=== PATIENT | female | born 1955 | race Caucasian/White ===

== ENCOUNTER 2017-01-22 18:10 | Inpatient (IN) | payer OTHER ==
[2017-01-22] MEDS ORDERED: Albuterol/Ipratropium NEB.SOL* Albuterol 2.5 MG/Ipratropium 0.5 MG 3 ML INH ONE (19:20)
[2017-01-22] MEDS ORDERED: methylPREDNISolone 125 MG* 2 ML VIAL IV ONE (19:20)
--- NOTE | 2017-01-22 19:50 | RAD ---
INDICATION: Short of breath COMPARISON: Chest x-ray July 03, 2015 TECHNIQUE: An AP portable view obtained at 1941 hours is submitted. FINDINGS: Bones/Soft Tissues: There are no acute bony findings. Cardiomediastinal: The cardiac silhouette is enlarged. Central pontine vessels and interstitium are prominent consistent with moderate interstitial congestion. Lungs: There are no focal infiltrates. Pleura: There are no pleural effusions. Other: None IMPRESSION: MODERATE INTERSTITIAL CONGESTION.
[2017-01-22 20:10] LABS: Hematocrit 33 % (35-47); Hemoglobin 9.7 g/dl (12.0-16.0); Mean Corpuscular HGB Conc 29 g/dl (31-36); Mean Corpuscular Hemoglobin 20 pg (27-31); Mean Corpuscular Volume 67 fL (80-97); Mean Platelet Volume 9 um3 (7.4-10.4); Red Blood Count 4.92 10^6/ul (4.0-5.4); Red Cell Distribution Width 21 % (10.5-15); White Blood Count 12.8 10^3/ul (3.5-10.8)
[2017-01-22 20:20] LABS: Add Diff/Slide Review? Slide Review Added; Comments Flag Yes
[2017-01-22 20:25] LABS: ALT 19 U/L (7-52); AST 15 U/L (13-39); Albumin 3.5 g/dL (3.2-5.2); Alkaline Phosphatase 103 U/L (34-104); Anion Gap 5 mmol/L (2-11); BUN/Creatinine Ratio 28.1 (8-20); Blood Urea Nitrogen 18 mg/dL (6-24); CO2 Carbon Dioxide 35 mmol/L (22-32); Calcium 9.2 mg/dL (8.6-10.3); Chloride 100 mmol/L (101-111); EGFR African American 120.9 (>60); Globulin 3.3 g/dL (2-4); Glucose 65 mg/dL (70-100); Potassium 3.7 mmol/L (3.5-5.0); Sodium 140 mmol/L (133-145); Total Protein 6.8 g/dL (6.4-8.9)
[2017-01-22 20:26] LABS: Troponin I 0.02 ng/mL (<0.04)
[2017-01-22 20:37] LABS: Microcytosis 2+
[2017-01-22 20:38] LABS: Basophilic Stippling 1+; Hypochromasia 2+; Polychromasia 2+; Tear Drop Cells 1+
[2017-01-22 20:39] LABS: Add Path Review? YES; Stomatocytes 3+
[2017-01-22 23:08] LABS: Urine Bilirubin Negative (Negative); Urine Glucose Negative (Negative); Urine Nitrite Negative (Negative)
[2017-01-22] MEDS ORDERED: Iodixanol* (CONTRAST) 320 MG/ML 100 ML SDV IV ONE (23:22)
[2017-01-23] MEDS ORDERED: Piperacillin/Tazobac ADVAN(*) 3.375 GM in NS 0.9% 100 ML* 100 ML IVPB ONE (01:16)
[2017-01-23 01:43] LABS: C Reactive Protein 8.78 mg/L (< 5.00)
--- NOTE | 2017-01-23 01:55 | ED ---
Miranda Valdes Jason, scribed for Sherman Broderick on 01/22/17 at 1924 . Complex/Multi-Sys Presentation - HPI Summary HPI Summary: This patient is a 61 year old F presenting to [facility] with a chief complaint of productive cough with nasal congestion since 1 week ago. The patient sates that she was on abc for 7 days, twice a day and finished 3 days ago, but continues to experience sx. The patient rates the pain _/10 in severity. Symptoms aggravated by nothing. Symptoms alleviated by nothing. Patient denies fever and chills. - History Of Current Complaint Chief Complaint: EDShortnessOfBreath Time Seen by Provider: 01/22/17 19:13 Hx Obtained From: Patient Onset/Duration: Gradual Onset, Lasting Weeks - Since 1 week ago, Still Present Timing: Constant Aggravating Factor(s): nothing Alleviating Factor(s): nothing Associated Signs And Symptoms: Positive: Other - productive cough with nasal congestion.Patient denies fever and chills. - Allergies/Home Medications Allergies/Adverse Reactions: Allergies Allergy/AdvReac Type Severity Reaction Status Date / Time No Known Allergies Allergy Verified 01/22/17 18:30 Home Medications: Home Medications Beclomethasone Dipropionate [Qvar] 80 mcg INH DAILY 01/23/17 [History Confirmed 01/23/17] Lantus Solostar 65 units SUBCUT QAM 01/23/17 [History Confirmed 01/23/17] Lantus Solostar 5x3 ML PENS 60 units SUBCUT QPM 01/23/17 [History Confirmed ] Nystatin CREAM* [Nystatin Cream*] 1 applic TOPICAL BID 01/23/17 [History Confirmed 01/23/17] PMH/Surg Hx/FS Hx/Imm Hx Previously Healthy: No Endocrine/Hematology History: Reports: Hx Diabetes Denies: Hx Systemic Lupus Erythematosus, Hx Thyroid Disease Cardiovascular History: Reports: Hx Hypercholesterolemia, Hx Hypertension, Other Cardiovascular Problems/Disorders - afib Denies: Hx Congestive Heart Failure Respiratory History: Reports: Hx Chronic Obstructive Pulmonary Disease (COPD), Hx Pneumonia, Hx Sleep Apnea, Other Respiratory Problems/Disorders - RESPIRATORY FAILURE (per admission hx) GI History: Reports: Hx Gall Bladder Disease - removed, Other GI Disorders - umbilical hernia, constipation History: Reports: Other Problems/Disorders - per admission Hx - UTIs Denies: Hx Dialysis, Hx Renal Disease Musculoskeletal History: Reports: Hx Arthritis, Hx Back Problems - pain, Other Musculoskeletal History - sciatica, back pain Denies: Hx Rheumatoid Arthritis Sensory History: Reports: Hx Contacts or Glasses Denies: Hx Cataracts Opthamlomology History: Reports: Hx Contacts or Glasses Denies: Hx Cataracts Neurological History: Reports: Other Neuro Impairments/Disorders - neuropathy Psychiatric History: Reports: Hx Anxiety - active - Cancer History Cancer Type, Location and Year: Uterine CA Hx Chemotherapy: No Hx Radiation Therapy: Yes - Surgical History Surgery Procedure, Year, and Place: humerus repair . hysterectomy 2009 d/ t uterine cx. cholecystectomy when in her 40s. c/s. tonsilectomy Hx Anesthesia Reactions: No Infectious Disease History: No Infectious Disease History: Denies: Hx of Known/Suspected MRSA, History Other Infectious Disease, Traveled Outside the [place] in Last 30 Days - Family History Known Family History: Positive: Cardiac Disease - coronary artery disease Negative: Blood Disorder Family History: R & n/C - Social History Alcohol Use: Rare Hx Substance Use: No Substance Use Type: Reports: None Substance Use Comment - Amount & Last Used: "in cookie a few days ago" Hx Tobacco Use: Yes - 50 pack year history Smoking Status (MU): Former Smoker Type: Cigarettes Amount Used/How Often: 1 ppd + Length of Time of Smoking/Using Tobacco: 40 years Have You Smoked in the Last Year: No Review of Systems Negative: Fever, Chills Positive: Other - Nasal Congestion Positive: Cough - productive All Other Systems Reviewed And Are Negative: Yes Physical Exam - Summary Physical Exam Summary: Appearance: Well appearing, no pain distress Skin: warm, dry, reflects adequate perfusion Head/face: normal Eyes: EOMI, KEITH ENT: normal Neck: supple, non-tender Respiratory: . Bilateral wheezing. Cardiovascular: RRR, pulses symmetrical Abdomen: non-tender, soft Bowel: present Musculoskeletal: normal, strength/ROM intact Neuro: normal, sensory motor intact, A&Ox3 Triage Information Reviewed: Yes Vital Signs On Initial Exam: Initial Vitals Temp Pulse Resp BP Pulse Ox 97.6 F 88 19 113/51 88 01/22/17 18:23 01/22/17 18:23 01/22/17 18:23 01/22/17 18:23 01/22/17 18:23 Vital Signs Reviewed: Yes Diagnostics - Vital Signs Vital Signs Temp Pulse Resp BP Pulse Ox 01/22/17 18:23 97.6 F 88 19 113/51 88 - Laboratory Lab Results: Lab Results 01/22/17 01/22/17 01/22/17 Range/Units 19:50 19:50 19:50 WBC 12.8 H (3.5-10.8) 10^3/ul RBC 4.92 (4.0-5.4) 10^6/ul Hgb 9.7 L (12.0-16.0) g/dl Hct 33 L (35-47) % MCV 67 L (80-97) fL MCH 20 L (27-31) pg MCHC 29 L (31-36) g/dl RDW 21 H (10.5-15) % Plt Count 346 (150-450) 10^3/ul MPV 9 (7.4-10.4) um3 Neut % (Auto) 69.8 (38-83) % Lymph % (Auto) 20.1 L (25-47) % Clare % (Auto) 6.1 (1-9) % Eos % (Auto) 3.1 (0-6) % Baso % (Auto) 0.9 (0-2) % Absolute Neuts (auto) 8.9 H (1.5-7.7) 10^3/ul Absolute Lymphs (auto) 2.6 (1.0-4.8) 10^3/ul Absolute Monos (auto) 0.8 (0-0.8) 10^3/ul Absolute Eos (auto) 0.4 (0-0.6) 10^3/ul Absolute Basos (auto) 0.1 (0-0.2) 10^3/ul Absolute Nucleated RBC 0 10^3/ul Nucleated RBC % 0 Normal RBC Morphology Not Reportable Polychromasia 2+ Hypochromasia 2+ Basophilic Stippling 1+ Microcytosis 2+ Tear Drop Cells 1+ Stomatocytes 3+ Elliptocytes 1+ Hem Pathologist Commnt Pending INR (Anticoag Therapy) 0.98 (0.77-1.02) APTT 26.2 (26.0-36.3) seconds D-Dimer, Quantitative 231 H (Less Than 230) ng/mL Sodium (133-145) mmol/L Potassium (3.5-5.0) mmol/L Chloride (101-111) mmol/L Carbon Dioxide (22-32) mmol/L Anion Gap (2-11) mmol/L BUN (6-24) mg/dL Creatinine (0.51-0.95) mg/dL Est GFR ( Amer) (>60) Est GFR (Non-Af Amer) (>60) BUN/Creatinine Ratio (8-20) Glucose (70-100) mg/dL Lactic Acid (0.5-2.0) mmol/L Calcium (8.6-10.3) mg/dL Total Bilirubin (0.2-1.0) mg/dL AST (13-39) U/L ALT (7-52) U/L Alkaline Phosphatase (34-104) U/L Troponin I (<0.04) ng/mL C-Reactive Protein (< 5.00) mg/L B-Natriuretic Peptide 30 ( - 100) pg/mL Total Protein (6.4-8.9) g/dL Albumin (3.2-5.2) g/dL Globulin (2-4) g/dL Albumin/Globulin Ratio (1-3) Urine Color Urine Appearance Urine pH (5-9) Ur Specific [place] (1.010-1.030) Urine Protein (Negative) Urine Ketones (Negative) Urine Blood (Negative) Urine Nitrate (Negative) Urine Bilirubin (Negative) Urine Urobilinogen (Negative) Ur Leukocyte Esterase (Negative) Urine Glucose (Negative) 01/22/17 01/22/17 01/22/17 Range/Units 19:50 19:50 22:51 WBC (3.5-10.8) 10^3/ul RBC (4.0-5.4) 10^6/ul Hgb (12.0-16.0) g/dl Hct (35-47) % MCV (80-97) fL MCH (27-31) pg MCHC (31-36) g/dl RDW (10.5-15) % Plt Count (150-450) 10^3/ul MPV (7.4-10.4) um3 Neut % (Auto) (38-83) % Lymph % (Auto) (25-47) % Clare % (Auto) (1-9) % Eos % (Auto) (0-6) % Baso % (Auto) (0-2) % Absolute Neuts (auto) (1.5-7.7) 10^3/ul Absolute Lymphs (auto) (1.0-4.8) 10^3/ul Absolute Monos (auto) (0-0.8) 10^3/ul Absolute Eos (auto) (0-0.6) 10^3/ul Absolute Basos (auto) (0-0.2) 10^3/ul Absolute Nucleated RBC 10^3/ul Nucleated RBC % Normal RBC Morphology Polychromasia Hypochromasia Basophilic Stippling Microcytosis Tear Drop Cells Stomatocytes Elliptocytes Hem Pathologist Commnt INR (Anticoag Therapy) (0.77-1.02) APTT (26.0-36.3) seconds D-Dimer, Quantitative (Less Than 230) ng/mL Sodium 140 (133-145) mmol/L Potassium 3.7 (3.5-5.0) mmol/L Chloride 100 L (101-111) mmol/L Carbon Dioxide 35 H (22-32) mmol/L Anion Gap 5 (2-11) mmol/L BUN 18 (6-24) mg/dL Creatinine 0.64 (0.51-0.95) mg/dL Est GFR ( Amer) 120.9 (>60) Est GFR (Non-Af Amer) 94.0 (>60) BUN/Creatinine Ratio 28.1 H (8-20) Glucose 65 L (70-100) mg/dL Lactic Acid 1.4 (0.5-2.0) mmol/L Calcium 9.2 (8.6-10.3) mg/dL Total Bilirubin 0.30 (0.2-1.0) mg/dL AST 15 (13-39) U/L ALT 19 (7-52) U/L Alkaline Phosphatase 103 (34-104) U/L Troponin I 0.02 (<0.04) ng/mL C-Reactive Protein 8.78 H (< 5.00) mg/L B-Natriuretic Peptide ( - 100) pg/mL Total Protein 6.8 (6.4-8.9) g/dL Albumin 3.5 (3.2-5.2) g/dL Globulin 3.3 (2-4) g/dL Albumin/Globulin Ratio 1.1 (1-3) Urine Color Yellow Urine Appearance Clear Urine pH 5.0 (5-9) Ur Specific [place] 1.023 (1.010-1.030) Urine Protein Negative (Negative) Urine Ketones Negative (Negative) Urine Blood Negative (Negative) Urine Nitrate Negative (Negative) Urine Bilirubin Negative (Negative) Urine Urobilinogen Negative (Negative) Ur Leukocyte Esterase Negative (Negative) Urine Glucose Negative (Negative) Result Diagrams: 01/22/17 19:50 01/22/17 19:50 Lab Statement: Any lab studies that have been ordered have been reviewed, and results considered in the medical decision making process. - Radiology CXR Radiology Interpretation Completed By: Radiologist - CXR reveals, per radiologist, MODERATE INTERSTITIAL CONGESTION. ED physician has reviewed this radiology report. - CT CTA CHEST CT Interpretation Completed By: Radiologist - Nodules up to 5mm right upper lobe , advise follow up. No Pulmonary Embolism, No aortic dissection or aneurysm. No focal lung consolidation or pleural effusions. Nonspecific ground glass densities bilateral lungs. Mediastinal lymphadenopathy, indeterminate. Prominent collateral vessels left chest wall/left breast.ED physician has reviewed this radiology report. - EKG 1933 Cardiac Rate: NL EKG Rhythm: Sinus Rhythm - [address] Segment: Normal Ectopy: None EKG Interpretation: no acute changes Complex Multi-Symp Course/Dx Course Of Treatment: This patient is a 61 year old F presenting to [facility] with a chief complaint of productive cough with nasal congestion since 1 week ago. Bloodwork/UA obtained. In the ED course the patient was given IV fluids. An EKG reveals a Sinus Rhythm at 82 bpm and no acute changes. CXR reveals, per radiologist, MODERATE INTERSTITIAL CONGESTION. Nodules up to 5mm right upper lobe, advise follow up. CTA CHEST reveals No Pulmonary Embolism, No aortic dissection or aneurysm. No focal lung consolidation or pleural effusions. Nonspecific ground glass densities bilateral lungs. Mediastinal lymphadenopathy , indeterminate. Prominent collateral vessels left chest wall/left breast. Patient will be admitted. The patient is agreeable with this plan. Diagnosis of PNA, exacerbation of COPD, hypoxia, and mild respiratory failure. - Diagnoses Differential Diagnoses/HQI/PQRI: Sepsis, Other - pneumonia, exc copd Provider Diagnoses: COPD with acute exacerbation, Pneumonia, Hypoxia, Respiratory failure with hypoxia - Critical Care Time Critical Care Time: 30-74 min Discharge - Discharge Plan Condition: Stable Disposition: ADMITTED TO [facility] Referrals: Yong Crocker MD [Primary Care Provider] - 3 Days Additional Instructions: Follow up with PCP in 3 days. RETURN TO THE EMERGENCY DEPARTMENT FOR CHANGING OR WORSENING SYMPTOMS. The documentation as recorded by the Miranda wilson Jason accurately reflects the service I personally performed and the decisions made by , Sherman Broderick.
[2017-01-23] MEDS ORDERED: Acetaminophen TAB* 325 MG PO PRN (02:18)
[2017-01-23] MEDS ORDERED: Dextrose 50% Syringe 50 ML* 25 GM/50 ML SYRINGE IV PUSH PRN (02:23)
[2017-01-23 03:43] LABS: Total Iron Binding Capacity 482 mcg/dL (250-450); Transferrin 344 mg/dL (203-362)
[2017-01-23 03:46] LABS: Iron < 15 ug/dL (50-212)
[2017-01-23] MEDS: Azithromycin IV(*) 500 MG in NS 0.9% 250 ML* 250 ML IVPB SCH (04:03)
[2017-01-23 04:04] LABS: Ferritin < 10.0 ng/mL (11-307)
[2017-01-23] MEDS: methylPREDNISolone SOD 40 MG* 1 ML VIAL IV SCH ×3 (04:12→20:58)
[2017-01-23] MEDS: Heparin VIAL(*) 5000 UNITS/ML VIAL (FIVE THOUSAND) SUBCUT SCH ×3 (05:28→21:00)
[2017-01-23] MEDS ORDERED: Albuterol 2.5 MG/3 ML NEB.SOL* (0.083%) INH SCH (07:00)
--- NOTE | 2017-01-23 07:39 | HP ---
HISTORY AND PHYSICAL: ADDENDUM: Please note that the patient also has microcytic anemia. She denies any bright red blood per rectum or melena. Her stool Hemoccult is going to be checked. The patient's iron studies are also going to be obtained. [id number] #: [id number] MTDD
--- NOTE | 2017-01-23 07:39 | HP ---
ADDENDUM NOW INCLUDED ON THIS REPORT CC: Dr. Crocker * HISTORY AND PHYSICAL: DATE OF ADMISSION: 01/23/17 PRIMARY CARE PROVIDER: Dr. Crocker. CHIEF COMPLAINT: Shortness of breath. HISTORY OF PRESENT ILLNESS: Elyssa Ty is a 61-year-old female with a history of COPD, who stated that she was originally diagnosed with exacerbation on 01/12, when she went to [facility]. She was prescribed a steroid inhaler. Later she went to see her primary care provider, who prescribed her a prednisone course of 5 days and an antibiotic for 7 days. She finished the antibiotic approximately 3 to 4 days ago and she still complains of coughing up phlegm and shortness of breath. The patient, when ambulating in the emergency room she dropped her oxygen saturation to 77%. She is going to be admitted with overnight observation with diagnosis of COPD exacerbation and hypoxemic respiratory failure. PAST MEDICAL HISTORY: 1. History of COPD, not oxygen dependent. 2. History of obstructive sleep apnea, the patient cannot tolerate the CPAP. 3. Diabetes type 2. 4. A bout of atrial fibrillation in the past, not anticoagulated. 5. Neuropathy. 6. Hypertension. 7. Urinary incontinence. 8. Obesity. 9. Chronic lower back pain. 10. History of left humerus fracture. 11. Status post ORIF of the right ankle in April 2016. 12. History of bilateral oophorectomy. 13. History of hysterectomy. 14. History of tonsillectomy. 15. History of . 16. Laparoscopic cholecystectomy. MEDICATIONS: Medications at home include: 1. Nystatin cream to abdominal folds b.i.d. 2. Insulin Humalog sliding scale. 3. Furosemide 20 mg daily. 4. Aspirin 81 mg daily. 5. Probiotic one tablet daily. 6. QVAR 80 mcg inhalation daily. 7. Calcium and vitamin D 1 tablet daily. 8. Lipitor 80 mg daily. 9. Albuterol inhaler 2 puffs every 4 hours p.r.n. 10. Gabapentin 600 mg b.i.d. 11. Fish oil 1 tablet daily. 12. Colace 100 mg b.i.d. 13. Lantus 60 units daily in p.m. and 65 units in a.m. 14. Multivitamin 1 tablet daily. 15. Metformin 1000 mg b.i.d. 16. Ramipril 10 mg b.i.d. ALLERGIES: No known drug allergies. FAMILY HISTORY: The patient's mother has a history of diabetes. SOCIAL HISTORY: The patient has a history of smoking for approximately 30 years , 2-1/2 packs per day. She lives with her . She ambulates without the use of support, although she has a cane since her surgery in April 2016 that she had been using occasionally. Her daughter, Ann, is her surrogate and Ann's phone number is [phone]. REVIEW OF SYSTEMS: Please see history of present illness. In addition to the above mentioned, the patient stated that she had gained approximately 20 pounds of weight in approximately 6 months. She always has dyspnea on exertion and she had not tolerated oxygen in the past because she "does not like it." For obstructive sleep apnea, she does not tolerate oxygen or CPAP. All the remaining 14 systems were reviewed with the patient and apart from the abovementioned in history of present illness were negative. PHYSICAL EXAMINATION GENERAL: The patient is a pleasant 61-year-old female with a BMI of 48. The patient is in no acute distress. Alert, awake, and oriented x3. VITAL SIGNS: Blood pressure of 127/73, heart rate of 86 and regular, respiratory rate 23, oxygen saturation 96% on 3 L of oxygen nasal cannula, temperature of 97.6. HEENT: Head: Atraumatic, normocephalic. Eyes: Pupils are equal, reactive to light and accommodation. Oropharynx clear. Mucosa moist. NECK: Supple. No JVD, no bruits bilaterally. RESPIRATORY: Crackles on bilateral lung auscultation, more so on the right lung and less at the left lung base. There were also scattered wheezes bilaterally. CARDIOVASCULAR: Regular rate and rhythm. No murmurs. ABDOMEN: Protuberant, soft, and nontender. Bowel sounds are present in all 4 quadrants. EXTREMITIES: With hardened skin with stigmata of venous stasis. The patient's right ankle is status post surgery over 6 months ago. She has some chronic appearing erythema in the area with a healing, scabbed lesion with no evidence of cellulitis. The patient has +1 pitting pedal edema bilaterally. Pulses are +2 bilaterally. There is no clubbing or cyanosis. NEURO EVALUATION: Speech clear. Cranial nerves II through XII are grossly intact. Motor strength is 5/5 bilaterally. SKIN: On evaluation of the skin, apart from the venous stasis in bilateral lower extremities and scabbed healing lesion in the right ankle with no evidence of cellulitis, no other abnormalities were noted. PSYCHIATRIC EVALUATION: Oriented x3 with no evidence of anxiety or depression. DIAGNOSTIC STUDIES/LAB DATA: Showed white blood cell count of 12.8, hemoglobin of 9.7, hematocrit of 33, MCV of 67, and platelets of 346. INR was 0.98, PTT of 26, D-dimer of 230. Sodium was 140, potassium 3.7, chloride 100, carbon dioxide 35, BUN 18, creatinine 0.64. Liver function tests were unremarkable. Glucose was incidentally noted to be 65. C-reactive protein of 8. Brain natriuretic peptide was 30. Calcitonin 0.1, troponin of 0.01. Urinalysis unremarkable. CT angiogram of the chest obtained in the emergency department shows nodules up to 5 mm in the right upper lobe. Advised followup. No pulmonary embolus. No aortic dissection or aneurysm. No focal lung consolidation or pleural effusions. No specific ground opacities in bilateral lungs. Mediastinal lymphadenopathy indeterminate. Prominent collateral vessels of the left chest and left breast." The patient's EKG showed normal sinus rhythm with no ST changes. ASSESSMENT AND PLAN: 1. Subacute respiratory failure lasting approximately 2 weeks in the patient with a history of chronic obstructive pulmonary disease now with exacerbation. The patient has some nonspecific ground opacities on her CTA and I suspect that may be a due to a viral inflection. Her procalcitonin level is low and CRP also does not indicate an acute bacterial infection. Nevertheless, the patient has lymphadenopathy and 5 mm right upper lung nodule about which she was informed and the need to have a repeat CT in approximately 3 months. At this point, the patient is going to be treated with antibiotic with azithromycin mostly due to anti- inflammatory properties as described. The patient also is going to be placed on Solu-Medrol for chronic obstructive pulmonary disease exacerbation as well as scheduled nebulizer treatments. 2. Her diabetes, the patient is going to be treated with insulin glargine twice a day as well as insulin lispro sliding scale. 3. For obstructive sleep apnea, patient is not tolerating CPAP. Oxygen is going to be provided. 3. For hypertension, her IWONA inhibitor is going to be continued. 4. For bilateral leg edema, Lasix is going to be continued at unchanged dose. 5. For DVT prophylaxis, the patient is going to be placed on heparin subcutaneously. 6. The patient's code status is full. TIME SPENT: Approximately 65 minutes was spent on the admission of this patient , more than half that time was spent [id number] with the patient doing the interview and physical exam. ADDENDUM: Please note that the patient also has microcytic anemia. She denies any bright red blood per rectum or melena. Her stool Hemoccult is going to be checked. The patient's iron studies are also going to be obtained. [id number] #: [id number] #: [id number] MARIE
[2017-01-23] MEDS ORDERED: Albuterol HFA INHALER* 8 gm MDI INH PRN (08:08)
--- NOTE | 2017-01-23 08:29 | RAD ---
HISTORY: Cough, infection, history of uterine cancer COMPARISONS: July 03, 2015, June 05, 2013 TECHNIQUE: Multiple contiguous axial CT scans of the chest were obtained after the administration of nonionic intravenous contrast, timed to the pulmonary arterial phase of contrast enhancement.. Coronal and sagittal multiplanar reformations are also submitted for review. FINDINGS: Evaluation limited by patient breathing motion artifact and by suboptimal contrast opacification. The attenuation is within the limits for the detection of pulmonary embolism. NECK AND THYROID: The lower neck and thyroid are unremarkable. CHEST WALL: There is no lower cervical, axillary, or supraclavicular lymphadenopathy by size criteria. HEART AND PERICARDIUM: The heart is unremarkable. AORTA AND PULMONARY VASCULATURE: The aorta and pulmonary vasculature are normal. MEDIASTINUM: There are enlarged prevascular and right paratracheal lymph nodes. These are stable. BUSHRA: There is mildly enlarged right hilar lymph node. This is slightly progressed from the July 03, 2015 examination.. AIRWAY AND ESOPHAGUS: The airway is unremarkable, without endobronchial filling defect. The esophagus is grossly normal. LUNG PARENCHYMA: There is mild ground glass opacification lungs bilaterally. There are multiple pulmonary parenchymal nodules measuring up to 0.5 cm in size. A claims representative lesion can be seen on axial image 24 within the superior segment of the right lower lobe PLEURA: No pleural abnormalities are noted. UPPER ABDOMEN: Mild degenerative changes are noted. There is reflux of contrast with the left chest wall veins without appreciable occlusion of the superior vena cava or left brachiocephalic vein. BONES AND SOFT TISSUES: No bone or soft tissue abnormalities are noted. OTHER: None. IMPRESSION: 1. MEDIASTINAL AND RIGHT HILAR LYMPHADENOPATHY. THERE IS BEEN MILD PROGRESSION WHEN COMPARED TO JULY 03, 2015. 2. MULTIPLE PULMONARY PARENCHYMAL NODULES MEASURING UP TO 0.5 CM IN SIZE. GIVEN THE HISTORY OF MALIGNANCY, METASTATIC DISEASE IS WITHIN THE DIFFERENTIAL. RECOMMEND THREE-MONTH FOLLOW-UP CT OF THE CHEST TO EVALUATE FOR STABILITY OR PROGRESSION. 3. MILD PATCHY AIRSPACE DISEASE OF THE LUNGS BILATERALLY.
[2017-01-23] MEDS: Furosemide TAB* 20 MG PO SCH (08:38)
[2017-01-23] MEDS: Atorvastatin* 80 MG TAB PO SCH (08:38)
[2017-01-23] MEDS: Docusate CAP* 100 MG PO SCH ×2 (08:38→20:58)
[2017-01-23] MEDS: Aspirin Low Dose CHEW TAB* 81 MG PO SCH ×2 (08:38→21:00)
[2017-01-23] MEDS: Gabapentin CAP(*) 300 MG PO SCH ×2 (08:38→20:58)
[2017-01-23] MEDS: Ramipril CAP* 5 MG PO SCH (08:38)
[2017-01-23] MEDS: Insulin LISPRO* 1 UNITS UNIT SUBCUT SCH ×4 (08:39→21:00)
[2017-01-23] MEDS: Insulin GLARGINE(*) 1 UNITS UNIT SUBCUT SCH ×2 (08:39→21:01)
[2017-01-23] MEDS: Nystatin CREAM* 15 GM TUBE TOPICAL SCH ×2 (09:00→21:04)
[2017-01-23] MEDS ORDERED: Insulin GLARGINE(*) 1 UNITS UNIT SUBCUT SCH (09:00)
--- NOTE | 2017-01-23 13:55 | PN ---
Subjective Date of Service: 01/23/17 Interval History: Patient seen and examined. Appears comfortable, denies acute SOB, remains on O2 via NC, no chest pains, no dizziness or headache. Cough is productive of yellow sputum, difficult to expectorate. Denies fever or chills. No further complaints. Objective Active Medications: Acetaminophen (Tylenol Tab*) 650 mg PO Q4H PRN PRN Reason: FEVER/PAIN Albuterol (Ventolin Hfa Inhaler*) 2 puff INH Q4H PRN PRN Reason: SOB/WHEEZING Aspirin (Aspirin Low Dose Tab*) 81 mg PO BID [facility] Last Admin: 01/23/17 08:38 Dose: 81 mg Atorvastatin Calcium (Lipitor*) 80 mg PO DAILY [facility] Last Admin: 01/23/17 08:38 Dose: 80 mg Dextrose (D50w Syringe 50 Ml*) 12.5 gm IV PUSH .FOR FS < 60 - SS PRN PRN Reason: FS < 60 Docusate Sodium (Colace Cap*) 100 mg PO BID [facility] Last Admin: 01/23/17 08:38 Dose: 100 mg Furosemide (Lasix Tab*) 20 mg PO DAILY [facility] Last Admin: 01/23/17 08:38 Dose: 20 mg Gabapentin (Neurontin Cap(*)) 600 mg PO BID [facility] Last Admin: 01/23/17 08:38 Dose: 600 mg Heparin Sodium (Porcine) (Heparin Vial(*)) 5,000 units SUBCUT Q8HR [facility] Last Admin: 01/23/17 12:49 Dose: 5,000 units Azithromycin 500 mg/ Sodium (Chloride) 250 mls @ 250 mls/hr IVPB Q24H [facility] Last Admin: 01/23/17 04:03 Dose: 250 mls/hr Insulin Glargine (Lantus(*)) 60 units SUBCUT Q12H [facility] Last Admin: 01/23/17 08:39 Dose: 60 unit Insulin Human Lispro (Humalog*) 0 units SUBCUT ACHS [facility] PRN Reason: Protocol Last Admin: 01/23/17 12:49 Dose: 12 unit Methylprednisolone Sodium Succinate (Solu-Medrol 40 Mg) 40 mg IV Q8H [facility] Last Admin: 01/23/17 12:49 Dose: 40 mg Mometasone Furoate (Asmanex 220 Mcg Mdi *) 1 puff INH QPM [facility] Nystatin (Nystatin Cream*) 1 applic TOPICAL BID [facility] Last Admin: 01/23/17 09:00 Dose: Not Given Ramipril (Altace Cap*) 10 mg PO DAILY [facility] Last Admin: 01/23/17 08:38 Dose: 10 mg Vital Signs - 8 hr 01/23/17 01/23/17 01/23/17 07:56 08:38 12:17 Temperature 98.0 F Pulse Rate 80 Respiratory 15 18 18 Rate Blood Pressure 146/57 (mmHg) O2 Sat by Pulse 92 Oximetry Oxygen Devices in Use Now: Nasal Cannula Appearance: Alert, NAD Eyes: No Scleral Icterus, PERRLA Ears/Nose/Mouth/Throat: NL Teeth, Lips, Gums, Mucous Membranes Moist Neck: NL Appearance and Movements; NL JVP, Trachea Midline Respiratory: Symmetrical Chest Expansion and Respiratory Effort - Diminished throughout lungfields, no appreciable wheeze, poor air exchage at bases Cardiovascular: NL Sounds; No Murmurs; No JVD, RRR Abdominal: NL Sounds; No Tenderness; No Distention - obese Extremities: No Edema, No Clubbing, Cyanosis Neurological: Alert and Oriented x 3, NL Sensation, NL Muscle Strength and Tone Nutrition: Taking PO's Result Diagrams: 01/22/17 19:50 01/22/17 19:50 Additional Lab and Data: Lab Results 01/22/17 01/22/17 01/22/17 Range/Units 19:50 19:50 19:50 WBC 12.8 H (3.5-10.8) 10^3/ul RBC 4.92 (4.0-5.4) 10^6/ul Hgb 9.7 L (12.0-16.0) g/dl Hct 33 L (35-47) % MCV 67 L (80-97) fL MCH 20 L (27-31) pg MCHC 29 L (31-36) g/dl RDW 21 H (10.5-15) % Plt Count 346 (150-450) 10^3/ul MPV 9 (7.4-10.4) um3 Neut % (Auto) 69.8 (38-83) % Lymph % (Auto) 20.1 L (25-47) % [place] % (Auto) 6.1 (1-9) % Eos % (Auto) 3.1 (0-6) % Baso % (Auto) 0.9 (0-2) % Absolute Neuts (auto) 8.9 H (1.5-7.7) 10^3/ul Absolute Lymphs (auto) 2.6 (1.0-4.8) 10^3/ul Absolute Monos (auto) 0.8 (0-0.8) 10^3/ul Absolute Eos (auto) 0.4 (0-0.6) 10^3/ul Absolute Basos (auto) 0.1 (0-0.2) 10^3/ul Absolute Nucleated RBC 0 10^3/ul Nucleated RBC % 0 Normal RBC Morphology Not Reportable Polychromasia 2+ Hypochromasia 2+ Basophilic Stippling 1+ Microcytosis 2+ Tear Drop Cells 1+ Stomatocytes 3+ Elliptocytes 1+ Hem Pathologist Commnt Pending INR (Anticoag Therapy) 0.98 (0.77-1.02) APTT 26.2 (26.0-36.3) seconds D-Dimer, Quantitative 231 H (Less Than 230) ng/mL Sodium (133-145) mmol/L Potassium (3.5-5.0) mmol/L Chloride (101-111) mmol/L Carbon Dioxide (22-32) mmol/L Anion Gap (2-11) mmol/L BUN (6-24) mg/dL Creatinine (0.51-0.95) mg/dL Est GFR ( Amer) (>60) Est GFR (Non-Af Amer) (>60) BUN/Creatinine Ratio (8-20) Glucose (70-100) mg/dL Lactic Acid (0.5-2.0) mmol/L Calcium (8.6-10.3) mg/dL Total Bilirubin (0.2-1.0) mg/dL AST (13-39) U/L ALT (7-52) U/L Alkaline Phosphatase (34-104) U/L Troponin I (<0.04) ng/mL C-Reactive Protein (< 5.00) mg/L B-Natriuretic Peptide 30 ( - 100) pg/mL Total Protein (6.4-8.9) g/dL Albumin (3.2-5.2) g/dL Globulin (2-4) g/dL Albumin/Globulin Ratio (1-3) Urine Color Urine Appearance Urine pH (5-9) Ur Specific [place] (1.010-1.030) Urine Protein (Negative) Urine Ketones (Negative) Urine Blood (Negative) Urine Nitrate (Negative) Urine Bilirubin (Negative) Urine Urobilinogen (Negative) Ur Leukocyte Esterase (Negative) Urine Glucose (Negative) 01/22/17 01/22/17 01/22/17 Range/Units 19:50 19:50 22:51 WBC (3.5-10.8) 10^3/ul RBC (4.0-5.4) 10^6/ul Hgb (12.0-16.0) g/dl Hct (35-47) % MCV (80-97) fL MCH (27-31) pg MCHC (31-36) g/dl RDW (10.5-15) % Plt Count (150-450) 10^3/ul MPV (7.4-10.4) um3 Neut % (Auto) (38-83) % Lymph % (Auto) (25-47) % [place] % (Auto) (1-9) % Eos % (Auto) (0-6) % Baso % (Auto) (0-2) % Absolute Neuts (auto) (1.5-7.7) 10^3/ul Absolute Lymphs (auto) (1.0-4.8) 10^3/ul Absolute Monos (auto) (0-0.8) 10^3/ul Absolute Eos (auto) (0-0.6) 10^3/ul Absolute Basos (auto) (0-0.2) 10^3/ul Absolute Nucleated RBC 10^3/ul Nucleated RBC % Normal RBC Morphology Polychromasia Hypochromasia Basophilic Stippling Microcytosis Tear Drop Cells Stomatocytes Elliptocytes Hem Pathologist Commnt INR (Anticoag Therapy) (0.77-1.02) APTT (26.0-36.3) seconds D-Dimer, Quantitative (Less Than 230) ng/mL Sodium 140 (133-145) mmol/L Potassium 3.7 (3.5-5.0) mmol/L Chloride 100 L (101-111) mmol/L Carbon Dioxide 35 H (22-32) mmol/L Anion Gap 5 (2-11) mmol/L BUN 18 (6-24) mg/dL Creatinine 0.64 (0.51-0.95) mg/dL Est GFR ( Amer) 120.9 (>60) Est GFR (Non-Af Amer) 94.0 (>60) BUN/Creatinine Ratio 28.1 H (8-20) Glucose 65 L (70-100) mg/dL Lactic Acid 1.4 (0.5-2.0) mmol/L Calcium 9.2 (8.6-10.3) mg/dL Total Bilirubin 0.30 (0.2-1.0) mg/dL AST 15 (13-39) U/L ALT 19 (7-52) U/L Alkaline Phosphatase 103 (34-104) U/L Troponin I 0.02 (<0.04) ng/mL C-Reactive Protein 8.78 H (< 5.00) mg/L B-Natriuretic Peptide ( - 100) pg/mL Total Protein 6.8 (6.4-8.9) g/dL Albumin 3.5 (3.2-5.2) g/dL Globulin 3.3 (2-4) g/dL Albumin/Globulin Ratio 1.1 (1-3) Urine Color Yellow Urine Appearance Clear Urine pH 5.0 (5-9) Ur Specific [place] 1.023 (1.010-1.030) Urine Protein Negative (Negative) Urine Ketones Negative (Negative) Urine Blood Negative (Negative) Urine Nitrate Negative (Negative) Urine Bilirubin Negative (Negative) Urine Urobilinogen Negative (Negative) Ur Leukocyte Esterase Negative (Negative) Urine Glucose Negative (Negative) Assess/Plan/Problems-Billing Assessment: This is a 61 year old female patient with acute exacerbation of COPD that failed outpatient treatment, now requiring continuous oxygen and IV atbx therapy. - Patient Problems (1) COPD exacerbation Code(s): J44.1 - CHRONIC OBSTRUCTIVE PULMONARY DISEASE W (ACUTE) EXACERBATION SNOMED Code(s): 564103233769601 Comment: - Continue azithromycin daily - O2 to keep sats >90% - albuterol Q4h PRN - Add mucinex Q12H - Add spiriva Q12H - Continue solumedrol 40mgQ8 through tomorrow then taper if improving - Check sats on and off O2 in AM (2) Type 2 diabetes mellitus Comment: - Continue lantus and lispro - sugars running high, likely also induced by steroids - Continue to monitor (3) ELIZABETH (obstructive sleep apnea) Current Visit: No Status: Acute Priority: Medium Code(s): G47.33 - OBSTRUCTIVE SLEEP APNEA (ADULT) (PEDIATRIC) SNOMED Code(s): 03759066 Comment: - Retaining CO2 on labs - Not using CPAP at home - Counseled on at least using night time O2 at discharge (4) Hypertension Code(s): I10 - ESSENTIAL (PRIMARY) HYPERTENSION SNOMED Code(s): 86289974 Comment: - Continue ramipril and lasix (5) Morbid obesity Code(s): E66.01 - MORBID (SEVERE) OBESITY DUE TO EXCESS CALORIES SNOMED Code(s ): 611899900 Comment: - BMI 49.2 (6) Rash and nonspecific skin eruption Code(s): R21 - RASH AND OTHER NONSPECIFIC SKIN ERUPTION SNOMED Code(s): 228236728 Comment: - Nystatin to skin folds (7) Diabetic neuropathy Code(s): E11.40 - TYPE 2 DIABETES MELLITUS WITH DIABETIC NEUROPATHY, UNSP SNOMED Code(s): 223451892 Comment: - Continue gabapentin Status and Disposition: Remain inpatient for continue respiratory treatment, IV steroids and antibiotics. Home vs rehab depending on hospital course. Counseling and/or Coordination of Care Minutes: Coordinated with patient and staff. Time spent >45 mins
[2017-01-23] MEDS ORDERED: Tiotropium CAP.INH* CAP.INH/18 MCG (USE ORDER SET !) INH SCH ×2 (15:00→18:30)
[2017-01-23] MEDS ORDERED: Mometasone 220 MCG MDI INH SCH (18:00)
[2017-01-23] MEDS: Tiotropium CAP.INH* CAP.INH/18 MCG (USE ORDER SET !) INH SCH (20:04)
[2017-01-23] MEDS: Mometasone 220 MCG MDI INH SCH (20:04)
[2017-01-23] MEDS: guaiFENesin ER TAB 600 MG PO SCH (20:58)
[2017-01-24] MEDS: Azithromycin IV(*) 500 MG in NS 0.9% 250 ML* 250 ML IVPB SCH (03:22)
[2017-01-24] MEDS: methylPREDNISolone SOD 40 MG* 1 ML VIAL IV SCH ×3 (03:31→20:07)
[2017-01-24] MEDS: Heparin VIAL(*) 5000 UNITS/ML VIAL (FIVE THOUSAND) SUBCUT SCH ×3 (05:03→22:47)
[2017-01-24 07:09] LABS: Comments Flag Yes; Hematocrit 31 % (35-47); Hemoglobin 9.3 g/dl (12.0-16.0); Mean Corpuscular HGB Conc 30 g/dl (31-36); Mean Corpuscular Hemoglobin 20 pg (27-31); Mean Platelet Volume 9 um3 (7.4-10.4); Red Blood Count 4.66 10^6/ul (4.0-5.4); Red Cell Distribution Width 20 % (10.5-15); White Blood Count 10.1 10^3/ul (3.5-10.8)
[2017-01-24 07:10] LABS: Mean Corpuscular Volume 68 fL (80-97)
[2017-01-24 07:16] LABS: BUN/Creatinine Ratio 36.4 (8-20); EGFR African American 116.7 (>60); EGFR Non-African American 90.7 (>60)
[2017-01-24 07:19] LABS: Potassium 5.3 mmol/L (3.5-5.0)
[2017-01-24] MEDS ORDERED: Spiriva Inhaler DEVICE* 1 EACH DEVICE INH ONE (09:00)
[2017-01-24] MEDS: Insulin LISPRO* 1 UNITS UNIT SUBCUT SCH ×4 (09:19→22:46)
[2017-01-24] MEDS: Insulin GLARGINE(*) 1 UNITS UNIT SUBCUT SCH ×2 (09:19→22:47)
[2017-01-24] MEDS: Gabapentin CAP(*) 300 MG PO SCH ×2 (09:21→22:49)
[2017-01-24] MEDS: Aspirin Low Dose CHEW TAB* 81 MG PO SCH ×2 (09:21→22:51)
[2017-01-24] MEDS: Furosemide TAB* 20 MG PO SCH (09:21)
[2017-01-24] MEDS: Ramipril CAP* 5 MG PO SCH (09:21)
[2017-01-24] MEDS: Docusate CAP* 100 MG PO SCH ×2 (09:21→22:50)
[2017-01-24] MEDS: Atorvastatin* 80 MG TAB PO SCH (09:22)
[2017-01-24] MEDS: guaiFENesin ER TAB 600 MG PO SCH ×2 (09:22→22:49)
[2017-01-24] MEDS: Nystatin CREAM* 15 GM TUBE TOPICAL SCH (09:23)
--- NOTE | 2017-01-24 12:15 | PN ---
Subjective Date of Service: 01/24/17 Interval History: Patient seen and examined. No acute overnight events. Sugars running high, still SOB with mild exertion/ambulation but no dyspnea at rest. Does feel that continuous O2 and other treatments are helping. Denies chest pain, no headache, mild fatigue, no dizziness, no n/v, tolerating PO. discussed need for home O2 at length - patient is still reluctant but understands she may need this going forward. Objective Active Medications: Acetaminophen (Tylenol Tab*) 650 mg PO Q4H PRN PRN Reason: FEVER/PAIN Last Admin: 01/24/17 04:19 Dose: 650 mg Albuterol (Ventolin Hfa Inhaler*) 2 puff INH Q4H PRN PRN Reason: SOB/WHEEZING Aspirin (Aspirin Low Dose Tab*) 81 mg PO BID [facility] Last Admin: 01/24/17 09:21 Dose: 81 mg Atorvastatin Calcium (Lipitor*) 80 mg PO DAILY [facility] Last Admin: 01/24/17 09:22 Dose: 80 mg Dextrose (D50w Syringe 50 Ml*) 12.5 gm IV PUSH .FOR FS < 60 - SS PRN PRN Reason: FS < 60 Docusate Sodium (Colace Cap*) 100 mg PO BID [facility] Last Admin: 01/24/17 09:21 Dose: 100 mg Furosemide (Lasix Tab*) 20 mg PO DAILY [facility] Last Admin: 01/24/17 09:21 Dose: 20 mg Gabapentin (Neurontin Cap(*)) 600 mg PO BID [facility] Last Admin: 01/24/17 09:21 Dose: 600 mg Guaifenesin (Mucinex*) 600 mg PO BID [facility] Last Admin: 01/24/17 09:22 Dose: 600 mg Heparin Sodium (Porcine) (Heparin Vial(*)) 5,000 units SUBCUT Q8HR [facility] Last Admin: 01/24/17 05:03 Dose: 5,000 units Azithromycin 500 mg/ Sodium (Chloride) 250 mls @ 250 mls/hr IVPB Q24H [facility] Last Admin: 01/24/17 03:22 Dose: 250 mls/hr Insulin Glargine (Lantus(*)) 70 units SUBCUT Q12H [facility] Last Admin: 01/24/17 09:19 Dose: 70 units Insulin Human Lispro (Humalog*) 0 units SUBCUT ACHS [facility] PRN Reason: Protocol Last Admin: 01/24/17 09:19 Dose: 9 unit Methylprednisolone Sodium Succinate (Solu-Medrol 40 Mg) 40 mg IV Q8H [facility] Last Admin: 01/24/17 03:31 Dose: 40 mg Mometasone Furoate (Asmanex 220 Mcg Mdi *) 1 puff INH BEDTIME [facility] Last Admin: 01/23/17 20:04 Dose: Not Given Nystatin (Nystatin Cream*) 1 applic TOPICAL BID [facility] Last Admin: 01/24/17 09:23 Dose: 1 applic Ramipril (Altace Cap*) 10 mg PO DAILY [facility] Last Admin: 01/24/17 09:21 Dose: 10 mg Tiotropium [place] (Spiriva Cap.Inh*) 1 cap INH BEDTIME [facility] Last Admin: 01/23/17 20:04 Dose: Not Given Vital Signs - 8 hr 01/24/17 01/24/17 01/24/17 07:37 09:21 10:05 Temperature 98.3 F Pulse Rate 83 76 Respiratory 18 18 16 Rate Blood Pressure 118/51 (mmHg) O2 Sat by Pulse 94 94 Oximetry 01/24/17 11:10 Temperature Pulse Rate Respiratory 16 Rate Blood Pressure (mmHg) O2 Sat by Pulse Oximetry Oxygen Devices in Use Now: Nasal Cannula Eyes: No Scleral Icterus, PERRLA Ears/Nose/Mouth/Throat: NL Teeth, Lips, Gums, Mucous Membranes Moist Neck: NL Appearance and Movements; NL JVP, Trachea Midline Respiratory: Symmetrical Chest Expansion and Respiratory Effort - diminished throughout with somewhat improved air exchange; expiratory wheeze on right Cardiovascular: NL Sounds; No Murmurs; No JVD, RRR Abdominal: NL Sounds; No Tenderness; No Distention Skin: No Rash or Ulcers Neurological: Alert and Oriented x 3, NL Sensation, NL Gait, NL Muscle Strength and Tone Nutrition: Taking PO's Result Diagrams: 01/24/17 06:25 01/24/17 06:25 Additional Lab and Data: Lab Results 01/22/17 01/22/17 01/22/17 Range/Units 19:50 19:50 19:50 WBC 12.8 H (3.5-10.8) 10^3/ul RBC 4.92 (4.0-5.4) 10^6/ul Hgb 9.7 L (12.0-16.0) g/dl Hct 33 L (35-47) % MCV 67 L (80-97) fL MCH 20 L (27-31) pg MCHC 29 L (31-36) g/dl RDW 21 H (10.5-15) % Plt Count 346 (150-450) 10^3/ul MPV 9 (7.4-10.4) um3 Neut % (Auto) 69.8 (38-83) % Lymph % (Auto) 20.1 L (25-47) % [place] % (Auto) 6.1 (1-9) % Eos % (Auto) 3.1 (0-6) % Baso % (Auto) 0.9 (0-2) % Absolute Neuts (auto) 8.9 H (1.5-7.7) 10^3/ul Absolute Lymphs (auto) 2.6 (1.0-4.8) 10^3/ul Absolute Monos (auto) 0.8 (0-0.8) 10^3/ul Absolute Eos (auto) 0.4 (0-0.6) 10^3/ul Absolute Basos (auto) 0.1 (0-0.2) 10^3/ul Absolute Nucleated RBC 0 10^3/ul Nucleated RBC % 0 Normal RBC Morphology Not Reportable Polychromasia 2+ Hypochromasia 2+ Basophilic Stippling 1+ Microcytosis 2+ Tear Drop Cells 1+ Stomatocytes 3+ Elliptocytes 1+ Hem Pathologist Commnt Pending INR (Anticoag Therapy) 0.98 (0.77-1.02) APTT 26.2 (26.0-36.3) seconds D-Dimer, Quantitative 231 H (Less Than 230) ng/mL Sodium (133-145) mmol/L Potassium (3.5-5.0) mmol/L Chloride (101-111) mmol/L Carbon Dioxide (22-32) mmol/L Anion Gap (2-11) mmol/L BUN (6-24) mg/dL Creatinine (0.51-0.95) mg/dL Est GFR ( Amer) (>60) Est GFR (Non-Af Amer) (>60) BUN/Creatinine Ratio (8-20) Glucose (70-100) mg/dL Lactic Acid (0.5-2.0) mmol/L Calcium (8.6-10.3) mg/dL Total Bilirubin (0.2-1.0) mg/dL AST (13-39) U/L ALT (7-52) U/L Alkaline Phosphatase (34-104) U/L Troponin I (<0.04) ng/mL C-Reactive Protein (< 5.00) mg/L B-Natriuretic Peptide 30 ( - 100) pg/mL Total Protein (6.4-8.9) g/dL Albumin (3.2-5.2) g/dL Globulin (2-4) g/dL Albumin/Globulin Ratio (1-3) Urine Color Urine Appearance Urine pH (5-9) Ur Specific [place] (1.010-1.030) Urine Protein (Negative) Urine Ketones (Negative) Urine Blood (Negative) Urine Nitrate (Negative) Urine Bilirubin (Negative) Urine Urobilinogen (Negative) Ur Leukocyte Esterase (Negative) Urine Glucose (Negative) 01/22/17 01/22/17 01/22/17 Range/Units 19:50 19:50 22:51 WBC (3.5-10.8) 10^3/ul RBC (4.0-5.4) 10^6/ul Hgb (12.0-16.0) g/dl Hct (35-47) % MCV (80-97) fL MCH (27-31) pg MCHC (31-36) g/dl RDW (10.5-15) % Plt Count (150-450) 10^3/ul MPV (7.4-10.4) um3 Neut % (Auto) (38-83) % Lymph % (Auto) (25-47) % [place] % (Auto) (1-9) % Eos % (Auto) (0-6) % Baso % (Auto) (0-2) % Absolute Neuts (auto) (1.5-7.7) 10^3/ul Absolute Lymphs (auto) (1.0-4.8) 10^3/ul Absolute Monos (auto) (0-0.8) 10^3/ul Absolute Eos (auto) (0-0.6) 10^3/ul Absolute Basos (auto) (0-0.2) 10^3/ul Absolute Nucleated RBC 10^3/ul Nucleated RBC % Normal RBC Morphology Polychromasia Hypochromasia Basophilic Stippling Microcytosis Tear Drop Cells Stomatocytes Elliptocytes Hem Pathologist Commnt INR (Anticoag Therapy) (0.77-1.02) APTT (26.0-36.3) seconds D-Dimer, Quantitative (Less Than 230) ng/mL Sodium 140 (133-145) mmol/L Potassium 3.7 (3.5-5.0) mmol/L Chloride 100 L (101-111) mmol/L Carbon Dioxide 35 H (22-32) mmol/L Anion Gap 5 (2-11) mmol/L BUN 18 (6-24) mg/dL Creatinine 0.64 (0.51-0.95) mg/dL Est GFR ( Amer) 120.9 (>60) Est GFR (Non-Af Amer) 94.0 (>60) BUN/Creatinine Ratio 28.1 H (8-20) Glucose 65 L (70-100) mg/dL Lactic Acid 1.4 (0.5-2.0) mmol/L Calcium 9.2 (8.6-10.3) mg/dL Total Bilirubin 0.30 (0.2-1.0) mg/dL AST 15 (13-39) U/L ALT 19 (7-52) U/L Alkaline Phosphatase 103 (34-104) U/L Troponin I 0.02 (<0.04) ng/mL C-Reactive Protein 8.78 H (< 5.00) mg/L B-Natriuretic Peptide ( - 100) pg/mL Total Protein 6.8 (6.4-8.9) g/dL Albumin 3.5 (3.2-5.2) g/dL Globulin 3.3 (2-4) g/dL Albumin/Globulin Ratio 1.1 (1-3) Urine Color Yellow Urine Appearance Clear Urine pH 5.0 (5-9) Ur Specific [place] 1.023 (1.010-1.030) Urine Protein Negative (Negative) Urine Ketones Negative (Negative) Urine Blood Negative (Negative) Urine Nitrate Negative (Negative) Urine Bilirubin Negative (Negative) Urine Urobilinogen Negative (Negative) Ur Leukocyte Esterase Negative (Negative) Urine Glucose Negative (Negative) Assess/Plan/Problems-Billing Assessment: This is a 61 year old female patient with acute exacerbation of COPD that failed outpatient treatment, now requiring continuous oxygen and IV atbx therapy. - Patient Problems (1) COPD exacerbation Code(s): J44.1 - CHRONIC OBSTRUCTIVE PULMONARY DISEASE W (ACUTE) EXACERBATION SNOMED Code(s): 475846978107134 Comment: - Continue azithromycin daily - O2 to keep sats >90% - albuterol Q4h PRN - Add mucinex Q12H - Add spiriva Q12H - Continue solumedrol 40mgQ8 today - will change to PO tomorrow then taper if improvement continues - Not ready to have sats checked off O2 yet, will wait until tomorrow (2) Type 2 diabetes mellitus Comment: - Continue lantus and lispro - Increased long acting insulin this AM 2/2 steroid induced hyperglycemia - Continue SS coverage - Carb control diet (3) ELIZABETH (obstructive sleep apnea) Current Visit: No Status: Acute Priority: Medium Code(s): G47.33 - OBSTRUCTIVE SLEEP APNEA (ADULT) (PEDIATRIC) SNOMED Code(s): 39111972 Comment: - Retaining CO2 on labs - Not using CPAP at home - Counseled on at least using night time O2 at discharge, patient more amenable today (4) Hypertension Code(s): I10 - ESSENTIAL (PRIMARY) HYPERTENSION SNOMED Code(s): 32244439 Comment: - Continue ramipril and lasix (5) Morbid obesity Code(s): E66.01 - MORBID (SEVERE) OBESITY DUE TO EXCESS CALORIES SNOMED Code(s ): 076362582 Comment: - BMI 49.2 (6) Rash and nonspecific skin eruption Code(s): R21 - RASH AND OTHER NONSPECIFIC SKIN ERUPTION SNOMED Code(s): 768683354 Comment: - Nystatin to skin folds, stable (7) Diabetic neuropathy Code(s): E11.40 - TYPE 2 DIABETES MELLITUS WITH DIABETIC NEUROPATHY, UNSP SNOMED Code(s): 434680318 Comment: - Continue gabapentin Status and Disposition: Remain inpatient for continued IV steroids, nebs and atbx. Will need to asses for home O2 needs. Highly recommend outpatient pulmonology follow up with Dr. Millan after DC. Counseling and/or Coordination of Care Minutes: Coordinated with patient, primary RN and case management.
[2017-01-24] MEDS: Mometasone 220 MCG MDI INH SCH (20:03)
[2017-01-24] MEDS: Tiotropium CAP.INH* CAP.INH/18 MCG (USE ORDER SET !) INH SCH (20:06)
[2017-01-25] MEDS: Nystatin CREAM* 15 GM TUBE TOPICAL SCH ×2 (00:08→08:22)
[2017-01-25] MEDS: methylPREDNISolone SOD 40 MG* 1 ML VIAL IV SCH (03:55)
[2017-01-25] MEDS: Azithromycin IV(*) 500 MG in NS 0.9% 250 ML* 250 ML IVPB SCH (03:55)
[2017-01-25] MEDS: Heparin VIAL(*) 5000 UNITS/ML VIAL (FIVE THOUSAND) SUBCUT SCH ×2 (06:17→13:18)
[2017-01-25] MEDS: Gabapentin CAP(*) 300 MG PO SCH (08:20)
[2017-01-25] MEDS: Atorvastatin* 80 MG TAB PO SCH (08:20)
[2017-01-25] MEDS: Insulin LISPRO* 1 UNITS UNIT SUBCUT SCH ×3 (08:20→17:20)
[2017-01-25] MEDS: guaiFENesin ER TAB 600 MG PO SCH (08:21)
[2017-01-25] MEDS: Aspirin Low Dose CHEW TAB* 81 MG PO SCH (08:21)
[2017-01-25] MEDS: Ramipril CAP* 5 MG PO SCH (08:21)
[2017-01-25] MEDS: Docusate CAP* 100 MG PO SCH (08:21)
[2017-01-25] MEDS: Furosemide TAB* 20 MG PO SCH (08:21)
[2017-01-25] MEDS: Insulin GLARGINE(*) 1 UNITS UNIT SUBCUT SCH (08:21)
[2017-01-25] MEDS ORDERED: predniSONE TAB* 50 MG PO SCH (09:00)
--- NOTE | 2017-01-25 13:44 | DCNOTE ---
Subjective Date of Service: 01/25/17 Interval History: Patient seen and examined. No acute overnight events. Patient feeling well/ improved. Feels breathing is improved. Still requires O2 (2L at rest 4L while ambulating) but less SOB and less secretions. States her cough is more productive so she feels she is getting some of the phlegm out, where she was not able to before. Denies chest pain, denies headache or dizziness, no weakness , no n/v. No further complaints. Objective Active Medications: Acetaminophen (Tylenol Tab*) 650 mg PO Q4H PRN PRN Reason: FEVER/PAIN Last Admin: 01/24/17 04:19 Dose: 650 mg Albuterol (Ventolin Hfa Inhaler*) 2 puff INH Q4H PRN PRN Reason: SOB/WHEEZING Aspirin (Aspirin Low Dose Tab*) 81 mg PO BID [facility] Last Admin: 01/25/17 08:21 Dose: 81 mg Atorvastatin Calcium (Lipitor*) 80 mg PO DAILY [facility] Last Admin: 01/25/17 08:20 Dose: 80 mg Dextrose (D50w Syringe 50 Ml*) 12.5 gm IV PUSH .FOR FS < 60 - SS PRN PRN Reason: FS < 60 Docusate Sodium (Colace Cap*) 100 mg PO BID [facility] Last Admin: 01/25/17 08:21 Dose: 100 mg Furosemide (Lasix Tab*) 20 mg PO DAILY [facility] Last Admin: 01/25/17 08:21 Dose: 20 mg Gabapentin (Neurontin Cap(*)) 600 mg PO BID [facility] Last Admin: 01/25/17 08:20 Dose: 600 mg Guaifenesin (Mucinex*) 600 mg PO BID [facility] Last Admin: 01/25/17 08:21 Dose: 600 mg Heparin Sodium (Porcine) (Heparin Vial(*)) 5,000 units SUBCUT Q8HR [facility] Last Admin: 01/25/17 13:18 Dose: 5,000 units Azithromycin 500 mg/ Sodium (Chloride) 250 mls @ 250 mls/hr IVPB Q24H [facility] Last Admin: 01/25/17 03:55 Dose: 250 mls/hr Insulin Glargine (Lantus(*)) 70 units SUBCUT Q12H [facility] Last Admin: 01/25/17 08:21 Dose: 70 units Insulin Human Lispro (Humalog*) 0 units SUBCUT ACHS [facility] PRN Reason: Protocol Last Admin: 01/25/17 13:18 Dose: 3 unit Mometasone Furoate (Asmanex 220 Mcg Mdi *) 1 puff INH BEDTIME [facility] Last Admin: 01/24/17 20:03 Dose: 1 puff Nystatin (Nystatin Cream*) 1 applic TOPICAL BID [facility] Last Admin: 01/25/17 08:22 Dose: 1 applic Prednisone (Deltasone Tab*) 50 mg PO DAILY [facility] Last Admin: 01/25/17 10:38 Dose: 50 mg Ramipril (Altace Cap*) 10 mg PO DAILY [facility] Last Admin: 01/25/17 08:21 Dose: 10 mg Tiotropium Tully (Spiriva Cap.Inh*) 1 cap INH BEDTIME [facility] Last Admin: 01/24/17 20:06 Dose: 1 cap Vital Signs - 8 hr 01/25/17 01/25/17 08:20 10:39 Respiratory 16 20 Rate Oxygen Devices in Use Now: Nasal Cannula Appearance: Well appearing, NAD Eyes: No Scleral Icterus, PERRLA Ears/Nose/Mouth/Throat: NL Teeth, Lips, Gums, Mucous Membranes Moist Neck: NL Appearance and Movements; NL JVP, Trachea Midline Respiratory: Symmetrical Chest Expansion and Respiratory Effort - Diminished throughout, improved air exchaged, mild exp wheeze RML, overall improved Cardiovascular: NL Sounds; No Murmurs; No JVD, RRR Abdominal: NL Sounds; No Tenderness; No Distention - obese Extremities: No Edema, No Clubbing, Cyanosis Skin: No Rash or Ulcers - skin fold rash prevention with antifungal, skin clear Neurological: Alert and Oriented x 3 Nutrition: Taking PO's Result Diagrams: 01/24/17 06:25 01/24/17 06:25 Additional Lab and Data: Lab Results 01/22/17 01/22/17 01/22/17 Range/Units 19:50 19:50 19:50 WBC 12.8 H (3.5-10.8) 10^3/ul RBC 4.92 (4.0-5.4) 10^6/ul Hgb 9.7 L (12.0-16.0) g/dl Hct 33 L (35-47) % MCV 67 L (80-97) fL MCH 20 L (27-31) pg MCHC 29 L (31-36) g/dl RDW 21 H (10.5-15) % Plt Count 346 (150-450) 10^3/ul MPV 9 (7.4-10.4) um3 Neut % (Auto) 69.8 (38-83) % Lymph % (Auto) 20.1 L (25-47) % Gladwin % (Auto) 6.1 (1-9) % Eos % (Auto) 3.1 (0-6) % Baso % (Auto) 0.9 (0-2) % Absolute Neuts (auto) 8.9 H (1.5-7.7) 10^3/ul Absolute Lymphs (auto) 2.6 (1.0-4.8) 10^3/ul Absolute Monos (auto) 0.8 (0-0.8) 10^3/ul Absolute Eos (auto) 0.4 (0-0.6) 10^3/ul Absolute Basos (auto) 0.1 (0-0.2) 10^3/ul Absolute Nucleated RBC 0 10^3/ul Nucleated RBC % 0 Normal RBC Morphology Not Reportable Polychromasia 2+ Hypochromasia 2+ Basophilic Stippling 1+ Microcytosis 2+ Tear Drop Cells 1+ Stomatocytes 3+ Elliptocytes 1+ Hem Pathologist Commnt Pending INR (Anticoag Therapy) 0.98 (0.77-1.02) APTT 26.2 (26.0-36.3) seconds D-Dimer, Quantitative 231 H (Less Than 230) ng/mL Sodium (133-145) mmol/L Potassium (3.5-5.0) mmol/L Chloride (101-111) mmol/L Carbon Dioxide (22-32) mmol/L Anion Gap (2-11) mmol/L BUN (6-24) mg/dL Creatinine (0.51-0.95) mg/dL Est GFR ( Amer) (>60) Est GFR (Non-Af Amer) (>60) BUN/Creatinine Ratio (8-20) Glucose (70-100) mg/dL Lactic Acid (0.5-2.0) mmol/L Calcium (8.6-10.3) mg/dL Total Bilirubin (0.2-1.0) mg/dL AST (13-39) U/L ALT (7-52) U/L Alkaline Phosphatase (34-104) U/L Troponin I (<0.04) ng/mL C-Reactive Protein (< 5.00) mg/L B-Natriuretic Peptide 30 ( - 100) pg/mL Total Protein (6.4-8.9) g/dL Albumin (3.2-5.2) g/dL Globulin (2-4) g/dL Albumin/Globulin Ratio (1-3) Urine Color Urine Appearance Urine pH (5-9) Ur Specific Alpha (1.010-1.030) Urine Protein (Negative) Urine Ketones (Negative) Urine Blood (Negative) Urine Nitrate (Negative) Urine Bilirubin (Negative) Urine Urobilinogen (Negative) Ur Leukocyte Esterase (Negative) Urine Glucose (Negative) 01/22/17 01/22/17 01/22/17 Range/Units 19:50 19:50 22:51 WBC (3.5-10.8) 10^3/ul RBC (4.0-5.4) 10^6/ul Hgb (12.0-16.0) g/dl Hct (35-47) % MCV (80-97) fL MCH (27-31) pg MCHC (31-36) g/dl RDW (10.5-15) % Plt Count (150-450) 10^3/ul MPV (7.4-10.4) um3 Neut % (Auto) (38-83) % Lymph % (Auto) (25-47) % Gladwin % (Auto) (1-9) % Eos % (Auto) (0-6) % Baso % (Auto) (0-2) % Absolute Neuts (auto) (1.5-7.7) 10^3/ul Absolute Lymphs (auto) (1.0-4.8) 10^3/ul Absolute Monos (auto) (0-0.8) 10^3/ul Absolute Eos (auto) (0-0.6) 10^3/ul Absolute Basos (auto) (0-0.2) 10^3/ul Absolute Nucleated RBC 10^3/ul Nucleated RBC % Normal RBC Morphology Polychromasia Hypochromasia Basophilic Stippling Microcytosis Tear Drop Cells Stomatocytes Elliptocytes Hem Pathologist Commnt INR (Anticoag Therapy) (0.77-1.02) APTT (26.0-36.3) seconds D-Dimer, Quantitative (Less Than 230) ng/mL Sodium 140 (133-145) mmol/L Potassium 3.7 (3.5-5.0) mmol/L Chloride 100 L (101-111) mmol/L Carbon Dioxide 35 H (22-32) mmol/L Anion Gap 5 (2-11) mmol/L BUN 18 (6-24) mg/dL Creatinine 0.64 (0.51-0.95) mg/dL Est GFR ( Amer) 120.9 (>60) Est GFR (Non-Af Amer) 94.0 (>60) BUN/Creatinine Ratio 28.1 H (8-20) Glucose 65 L (70-100) mg/dL Lactic Acid 1.4 (0.5-2.0) mmol/L Calcium 9.2 (8.6-10.3) mg/dL Total Bilirubin 0.30 (0.2-1.0) mg/dL AST 15 (13-39) U/L ALT 19 (7-52) U/L Alkaline Phosphatase 103 (34-104) U/L Troponin I 0.02 (<0.04) ng/mL C-Reactive Protein 8.78 H (< 5.00) mg/L B-Natriuretic Peptide ( - 100) pg/mL Total Protein 6.8 (6.4-8.9) g/dL Albumin 3.5 (3.2-5.2) g/dL Globulin 3.3 (2-4) g/dL Albumin/Globulin Ratio 1.1 (1-3) Urine Color Yellow Urine Appearance Clear Urine pH 5.0 (5-9) Ur Specific Alpha 1.023 (1.010-1.030) Urine Protein Negative (Negative) Urine Ketones Negative (Negative) Urine Blood Negative (Negative) Urine Nitrate Negative (Negative) Urine Bilirubin Negative (Negative) Urine Urobilinogen Negative (Negative) Ur Leukocyte Esterase Negative (Negative) Urine Glucose Negative (Negative) Assess/Plan/Problems-Billing Assessment: This is a 61 year old female patient with acute exacerbation of COPD that failed outpatient treatment, with significant improvement in respiratory status after two days of IV steroids, continuous O2 and atbx. - Patient Problems (1) COPD exacerbation Code(s): J44.1 - CHRONIC OBSTRUCTIVE PULMONARY DISEASE W (ACUTE) EXACERBATION SNOMED Code(s): 689976829057497 Comment: - Continue azithromycin PO at DC to complete 5 day course - O2 to keep sats >90% - albuterol Q4h PRN - continue mucinex Q12H - Continue spiriva Q12H - Changed to oral prednisone for 5 days, solumedrol DCd - Home O2 arranged (2) Type 2 diabetes mellitus Comment: - Continue lantus and lispro - Increased long acting insulin this AM 2/2 steroid induced hyperglycemia - Continue SS coverage - Carb control diet - Should improve off steroids, A1c = 8.7 (3) ELIZABETH (obstructive sleep apnea) Current Visit: No Status: Acute Priority: Medium Code(s): G47.33 - OBSTRUCTIVE SLEEP APNEA (ADULT) (PEDIATRIC) SNOMED Code(s): 94903402 Comment: - Retaining CO2 on labs - Not using CPAP at home - Will be DC on home O2 (4) Hypertension Code(s): I10 - ESSENTIAL (PRIMARY) HYPERTENSION SNOMED Code(s): 91854573 Comment: - Continue ramipril and lasix (5) Morbid obesity Code(s): E66.01 - MORBID (SEVERE) OBESITY DUE TO EXCESS CALORIES SNOMED Code(s ): 221390197 Comment: - BMI 49.2 (6) Rash and nonspecific skin eruption Code(s): R21 - RASH AND OTHER NONSPECIFIC SKIN ERUPTION SNOMED Code(s): 951438652 Comment: - Nystatin to skin folds, stable (7) Diabetic neuropathy Code(s): E11.40 - TYPE 2 DIABETES MELLITUS WITH DIABETIC NEUROPATHY, UNSP SNOMED Code(s): 934280304 Comment: - Continue gabapentin Status and Disposition: DC to home on O2 today. Counseling and/or Coordination of Care Minutes: Coordinated with patient and staff. Time spent >30mins
[2017-01-25 14:37] VITALS: BP 122/50
--- NOTE | 2017-01-26 02:43 | DS ---
CC: Dr. Crocker * DISCHARGE SUMMARY: DATE OF ADMISSION: 01/24/17 DATE OF DISCHARGE: 01/25/17 PRIMARY CARE PHYSICIAN: Dr. Yong Crocker. ATTENDING PROVIDER FOR THIS HOSPITALIZATION: Dr. Moreno Ogden * (DICTATED BY NEGRITO CHAPIN NP) HOSPITAL COURSE: This is a pleasant 61-year-old female patient who presented to the emergency department with report of shortness of breath, increasing both at rest and with exertion. The patient has a known history of COPD for the past several years. She had productive cough and some nasal congestion, primarily for 1 week. She was on some p.o. antibiotics by her primary care provider for 7 days and then 3 days after completing her course, she began to experience some progressive shortness of breath and some pain and felt like her cough was getting worse and she was starting to cough up a discolored sputum at that time. Given her history of COPD, she decided to come to the emergency department to be evaluated. Of note, she did have mildly elevated white count at the time of admission, rest of her labs were unremarkable. Her chest x-ray did reveal some interstitial lung disease and congestion moderate in nature. No acute consolidation or infiltrates. She also had a CT angiogram of the chest. Patient does have a history of nodules on the chest. Nodules revealed 5 mm in the right upper lobe. She was advised to follow up. There was no PE. Given her chest pain and acute shortness of breath, she ruled out PE. She has had no dissection or aneurysm. No pleural effusions. She had some nonspecific ground-glass densities bilaterally of lungs and some mediastinal lymphadenopathy , which is of indeterminate significance. She had prominent collateral vessels in the left chest wall and left breast. EKG at that time showed no acute ST segment changes, heart rate was 82, showing no ectopy or irregular rhythm. Patient was admitted to observation status for acute exacerbation of COPD. She was treated subsequently with IV Solu-Medrol, nebulizer treatments, azithromycin in part for its anti-inflammatory properties. The patient was afebrile. She did not appear to be acutely infected. Also of note, the patient was supposed to be on home oxygen. It appears that she was noncompliant with home oxygen regimen, which may have also contributed to her current condition. She was placed on continuous O2 with 3 to 4 L continuous. The patient began to have gradual regression of her symptoms. She was tested for saturations on and off her oxygen today, the 01/25/17, and she did have dips in her saturations into the 80s, so it was determined that 2 L at rest and 4 L with ambulation kept her oxygen saturation greater than 90. The patient was changed to oral steroids and home oxygen was arranged. PHYSICAL EXAMINATION: Vital signs at the time of discharge, temperature 97.6, heart rate 69, respiratory rate 16, saturation 96% on 3 L, blood pressure 143/ 68. DIAGNOSTIC STUDIES/LAB DATA: WBCs 10.1, RBCs 4.66, hemoglobin 9.3, hematocrit 31, platelets 299. Chemistries: Glucose was riding high partly due to not just her diabetes but also steroid use, blood sugar this afternoon was 192. Also of note at the admission through the ER, her D-dimer was slightly elevated at 231 which is also why a CT angiogram of the chest was ordered. The patient was discharged in stable condition to her home with home oxygen support. Prescriptions were sent to her pharmacy, patient verbalized to understanding of her followups and her prescriptions at the time of discharge. 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 She does have a primary care physician who she sees regularly; however, given her inability to follow oxygen recommendations and having this acute exacerbation, I felt that it is necessary that she should see Dr. Millan on an outpatient basis, so we did make a referral for her to call Dr. Millan and also to see her primary care physician within the next 3 days to check her oxygen saturation and also listen to her lungs and ensure that she is still feeling well, so she should see Dr. Yong Crocker within 3 days, Dr. Millan in the next 1 to 2 weeks and then follow up with professional home care for her home oxygen needs. MEDICATIONS AT THE TIME OF DISCHARGE: Include: 1. Albuterol inhaler 2 puffs q. 4 hours as needed. 2. Azithromycin 500 mg 1 tablet daily for 3 days. 3. Guaifenesin tablet 600 mg 2 times a day for 14 days. 4. Prednisone tablets 50 mg 1 tablet daily for 5 days. 5. Spiriva caps 18 mcg 1 cap inhaled at bedtime. 6. Baby aspirin 81 mg daily. 7. Atorvastatin 80 mg daily. 8. Mometasone 220 mcg 1 puff inhaled daily. 9. Docusate 100 mg b.i.d. 10. Lasix 20 mg daily. 11. Gabapentin 600 mg p.o. b.i.d. 12. Nystatin cream apply daily as needed. 13. Ramipril 5 mg daily. 14. Calcium carbonate and vitamin D 1 tablet daily. 15. Fish Oil 1 tablet daily. 16. Humalog insulin sliding scale. 17. Lantus SoloSTAR 65 units daily in the morning, 60 units at night. 18. Metformin 1000 mg 1 tablet 3 times a day. 19. Multivitamin with minerals 1 tablet daily. 20. Probiotic 1 tablet daily. DISPOSITION: The patient was discharged in stable condition to her home. All questions were answered, patient verbalized understanding of followups and medications at the time of discharge. NEGRITO CHAPIN NP [id number]/[facility] #: [id number] MARIE
== END 2017-01-25 18:50 | disposition home or self-care (01) | DRG 190 ==
LOC: ED 18:10 → MED 01-23 02:18 → OBSVTOIN 01-24 12:00
PROVIDERS: ADMIT Internal Medicine; ATTEND Internal Medicine
DX: J44.1 Chronic obstructive pulmonary disease with (acute) exacerbation (principal); J96.01 Acute respiratory failure with hypoxia; Z68.42 Body mass index [BMI] 45.0-49.9, adult; E11.40 Type 2 diabetes mellitus with diabetic neuropathy, unspecified; E66.01 Morbid (severe) obesity due to excess calories; D50.9 Iron deficiency anemia, unspecified; G47.33 Obstructive sleep apnea (adult) (pediatric); I10 Essential (primary) hypertension; R21 Rash and other nonspecific skin eruption; M54.5 Low back pain; I87.8 Other specified disorders of veins; Z79.82 Long term (current) use of aspirin; Z79.4 Long term (current) use of insulin; Z79.899 Other long term (current) drug therapy; Z83.3 Family history of diabetes mellitus; Z87.891 Personal history of nicotine dependence
CPT/HCPCS: 36415; 71010; 71275; 80048; 80053; 81003; 82728; 83036; 83540; 83550; 83605; 83880; 84145; 84484; 85025; 85060; 85379; 85610; 85730; 86140; 87040; 93005; 94640; 94760; A9270-GY; G0378; J0456; J1644; J2543; J2920; J2930; J7512; Q9967

== ENCOUNTER 2017-02-08 09:11 | Emergency (ER) | payer OTHER ==
[2017-02-08 10:20] LABS: ABS Basophils 0.1 10^3/ul (0-0.2); ABS Eosinophils 0.1 10^3/ul (0-0.6); ABS Lymphocytes 1.3 10^3/ul (1.0-4.8); ABS Monocytes 0.3 10^3/ul (0-0.8); ABS Neutrophils 9.9 10^3/ul (1.5-7.7); ABS Nucleated RBC 0 10^3/ul; Hematocrit 34 % (35-47); Hemoglobin 10.3 g/dl (12.0-16.0); Lymphocyte % 10.9 % (25-47); Mean Corpuscular HGB Conc 30 g/dl (31-36); Mean Corpuscular Hemoglobin 20 pg (27-31); Mean Platelet Volume 9 um3 (7.4-10.4); Nucleated Red Blood Cells % 0; Platelet Count 294 10^3/ul (150-450); Red Blood Count 5.12 10^6/ul (4.0-5.4); Red Cell Distribution Width 21 % (10.5-15); White Blood Count 11.6 10^3/ul (3.5-10.8)
[2017-02-08 10:21] LABS: Mean Corpuscular Volume 67 fL (80-97)
--- NOTE | 2017-02-08 10:36 | RAD ---
HISTORY: Dyspnea COMPARISONS: January 22, 2017 VIEWS: 1: frontal portable view of the chest at 10:00 AM FINDINGS: LINES AND TUBES: None. CARDIOMEDIASTINAL SILHOUETTE: The cardiac silhouette is mildly enlarged. The cardiomediastinal silhouette is otherwise normal for portable technique. PLEURA: The costophrenic angles are sharp. No pleural abnormalities are noted. LUNG PARENCHYMA: There is a mild diffuse reticular pattern with indistinct pulmonary vessels. ABDOMEN: The upper abdomen is clear. There is no subphrenic gas. BONES AND SOFT TISSUES: No bone or soft tissue abnormalities are noted. IMPRESSION: CARDIOMEGALY WITH MILD PULMONARY INTERSTITIAL EDEMA
[2017-02-08 10:41] LABS: EGFR Non-African American 79.5 (>60)
[2017-02-08 12:08] VITALS: BP 117/57
[2017-02-08] MEDS ORDERED: Albuterol/Ipratropium NEB.SOL* Albuterol 2.5 MG/Ipratropium 0.5 MG 3 ML INH ONE (12:31)
--- NOTE | 2017-02-08 17:42 | ED ---
Eugenio Valdes Angela, scribed for Cyndee Crowe MD on 02/08/17 at 1010 . Shortness of Breath - HPI Summary HPI Summary: This pt is a 61 y/o female presenting to [facility] via EMS c/o SOB. Pt woke up at 03 :00 today and felt tight, so she put her oxygen on. Pt reports she checked her O2 saturation this morning which showed her oxygen decrease after taking off her oxygen. Pt notes she uses O2 PRN at home. Pt states she had some chills and sore throat. She denies headache, fever, ear ache, neck pain, chest pain, back pain, abd pain, hematuria, constipation, rashes, bruising. Pt took her metformin this morning. PMHx includes COPD and diabetes. Pt is not a current smoker. - History of Current Complaint Chief Complaint: EDShortnessOfBreath Hx Obtained From: Patient Onset/Duration: Lasting Hours Current Severity: Mild Dyspnea At: Rest Alleviating Factors: Oxygen Associated Signs & Symptoms: Chills - Allergy/Home Medications Allergies/Adverse Reactions: Allergies Allergy/AdvReac Type Severity Reaction Status Date / Time No Known Allergies Allergy Verified 01/22/17 18:30 PMH/Surg Hx/FS Hx/Imm Hx Endocrine/Hematology History: Reports: Hx Diabetes Denies: Hx Systemic Lupus Erythematosus, Hx Thyroid Disease Cardiovascular History: Reports: Hx Hypercholesterolemia, Hx Hypertension, Other Cardiovascular Problems/Disorders - afib Denies: Hx Congestive Heart Failure Respiratory History: Reports: Hx Chronic Obstructive Pulmonary Disease (COPD), Hx Pneumonia, Hx Sleep Apnea, Other Respiratory Problems/Disorders - RESPIRATORY FAILURE (per admission hx) GI History: Reports: Hx Gall Bladder Disease - removed, Other GI Disorders - umbilical hernia, constipation History: Reports: Other Problems/Disorders - per admission Hx - UTIs Denies: Hx Dialysis, Hx Renal Disease Musculoskeletal History: Reports: Hx Arthritis, Hx Back Problems - pain, Other Musculoskeletal History - sciatica, back pain Denies: Hx Rheumatoid Arthritis Sensory History: Reports: Hx Contacts or Glasses Denies: Hx Cataracts, Hx Hearing Aid Opthamlomology History: Reports: Hx Contacts or Glasses Denies: Hx Cataracts Neurological History: Reports: Other Neuro Impairments/Disorders - neuropathy Psychiatric History: Reports: Hx Anxiety - active - Cancer History Cancer Type, Location and Year: Uterine CA Hx Chemotherapy: No Hx Radiation Therapy: Yes - Surgical History Surgery Procedure, Year, and Place: humerus repair . hysterectomy 2010 d/ t uterine cx. cholecystectomy when in her 40s. c/s. tonsilectomy Hx Anesthesia Reactions: No Infectious Disease History: No Infectious Disease History: Denies: Hx of Known/Suspected MRSA, History Other Infectious Disease, Traveled Outside the [place] in Last 30 Days - Family History Known Family History: Positive: None, Cardiac Disease - coronary artery disease Negative: Blood Disorder Family History: R & n/C - Social History Alcohol Use: None Hx Substance Use: No Substance Use Type: Reports: None Substance Use Comment - Amount & Last Used: "in cookie a few days ago" Hx Tobacco Use: Yes - 50 pack year history Smoking Status (MU): Former Smoker Type: Cigarettes Amount Used/How Often: 1 ppd + Length of Time of Smoking/Using Tobacco: 40 years Have You Smoked in the Last Year: No Review of Systems Positive: Chills. Negative: Fever Positive: Sore Throat. Negative: Ear Ache Negative: Chest Pain Positive: Shortness Of Breath Negative: Abdominal Pain, Other - constipation Negative: dysuria, hematuria Negative: Other - back pain Negative: Rash, Bruising Negative: Headache All Other Systems Reviewed And Are Negative: No Physical Exam - Summary Physical Exam Summary: Appearance: Alert, conversive, nontoxic appearing Skin: Warm, dry, no mottling, no rashes, no contusions HEENT: EOMI, PERRL, moist mucous membranes Neck: No masses on the neck, supple Respiratory: Clear to auscultation, breath sounds present, no rales, no rhonchi , no wheezes Cardiovascular: RRR, pulses are symmetrical in both lower and upper extremities Abdomen: Soft, non-tender Bowel Sounds: Present Musculoskeletal: No CVA tenderness, no obvious deformity, moving all extremities in a grossly normal manner. Mild noted pitting edema in LE. Neurological: A&Ox3, CN II-XII Intact, moving all extremities symmetrically Psychiatric: Normal affect and mood Triage Information Reviewed: Yes Vital Signs On Initial Exam: Initial Vitals Temp Pulse Resp BP Pulse Ox 98.3 F 78 22 139/62 96 02/08/17 09:22 02/08/17 09:22 02/08/17 09:22 02/08/17 09:22 02/08/17 09:22 Vital Signs Reviewed: Yes - Juhi Coma Scale Coma Scale Total: 15 Diagnostics - Vital Signs Vital Signs Temp Pulse Resp BP Pulse Ox 02/08/17 09:29 75 22 94 02/08/17 09:22 98.3 F 78 22 139/62 96 - Laboratory Lab Results: Lab Results 02/08/17 02/08/17 02/08/17 Range/Units 10:08 10:08 10:08 WBC 11.6 H (3.5-10.8) 10^3/ul RBC 5.12 (4.0-5.4) 10^6/ul Hgb 10.3 L (12.0-16.0) g/dl Hct 34 L (35-47) % MCV 67 L (80-97) fL MCH 20 L (27-31) pg MCHC 30 L (31-36) g/dl RDW 21 H (10.5-15) % Plt Count 294 (150-450) 10^3/ul MPV 9 (7.4-10.4) um3 Neut % (Auto) 84.8 H (38-83) % Lymph % (Auto) 10.9 L (25-47) % Gonzales % (Auto) 2.6 (1-9) % Eos % (Auto) 1.0 (0-6) % Baso % (Auto) 0.7 (0-2) % Absolute Neuts (auto) 9.9 H (1.5-7.7) 10^3/ul Absolute Lymphs (auto) 1.3 (1.0-4.8) 10^3/ul Absolute Monos (auto) 0.3 (0-0.8) 10^3/ul Absolute Eos (auto) 0.1 (0-0.6) 10^3/ul Absolute Basos (auto) 0.1 (0-0.2) 10^3/ul Absolute Nucleated RBC 0 10^3/ul Nucleated RBC % 0 Sodium 138 (133-145) mmol/L Potassium 4.1 (3.5-5.0) mmol/L Chloride 99 L (101-111) mmol/L Carbon Dioxide 33 H (22-32) mmol/L Anion Gap 6 (2-11) mmol/L BUN 18 (6-24) mg/dL Creatinine 0.74 (0.51-0.95) mg/dL Est GFR ( Amer) 102.3 (>60) Est GFR (Non-Af Amer) 79.5 (>60) BUN/Creatinine Ratio 24.3 H (8-20) Glucose 199 H (70-100) mg/dL Calcium 9.6 (8.6-10.3) mg/dL Total Bilirubin 0.40 (0.2-1.0) mg/dL AST 16 (13-39) U/L ALT 25 (7-52) U/L Alkaline Phosphatase 105 H (34-104) U/L Troponin I 0.01 (<0.04) ng/mL B-Natriuretic Peptide 14 ( - 100) pg/mL Total Protein 7.0 (6.4-8.9) g/dL Albumin 3.9 (3.2-5.2) g/dL Globulin 3.1 (2-4) g/dL Albumin/Globulin Ratio 1.3 (1-3) Result Diagrams: 02/08/17 10:08 02/08/17 10:08 Lab Statement: Any lab studies that have been ordered have been reviewed, and results considered in the medical decision making process. - Radiology Chest XR Xray Interpretation: Positive (See Comments) - IMPRESSION: Cardiomegaly with mild pulmonary interstitial edema. Dr. Crowe has reviewed this radiology report. Radiology Interpretation Completed By: Radiologist - EKG 10:02 Cardiac Rate: NL EKG Rhythm: Sinus Rhythm - at 77 bpm EKG Interpretation: Normal QRSD. Normal QTc. Normal ST-T waves. Re-Evaluation - Re-Evaluation First Eval Re-Evaluation Time: 13:18 Comment: Pt reports she is feeling a little better. She is requesting an O2 tank to take home. Pt notes Course/Dx - Course Course Of Treatment: This pt is a 61 y/o female presenting to [facility] via EMS c/o SOB. Pt woke up at 03:00 today and felt tight, so she put her oxygen on. Pt reports she checked her O2 saturation this morning which showed her oxygen decrease after taking off her oxygen. Pt notes she uses O2 PRN at home. pt ambulated with her O2 1 L NC. she felt fine. she is completing sentences and is in no acute distress. Will discharge. pt is comfortable with the plan. Chest XR shows cardiomegaly with mild pulmonary interstitial edema. Labs show mild chronic anemia. BNP is 14. Troponin is negative. Pt is already on steroids, therefore the pt will be prescribed antibiotics. She is instructed to follow up with her doctor and continue with her oxygen as needed. - Diagnoses Provider Diagnoses: Bronchitis Discharge - Discharge Plan Condition: Stable Disposition: HOME Prescriptions: Azithromyxin SAI (NF) [Z-Sai (Zithromax) 250 mg tabs #6] 2 tab PO .TODAY, THEN 1 DAILY #6 tab Patient Education Materials: Acute Bronchitis (ED) Referrals: Yong Crocker MD [Primary Care Provider] - Additional Instructions: Continue your steroids as previously instructed. Start taking the antibiotics as we discussed. a prescription has been sent to your pharmacy. return if worse or any new symptoms. The documentation as recorded by the Eugenio wilson Angela accurately reflects the service I personally performed and the decisions made by , Cyndee Crowe MD.
== END 2017-02-08 14:37 | disposition home or self-care (01) ==
LOC: ED 09:11
DX: J40 Bronchitis, not specified as acute or chronic (principal); I51.7 Cardiomegaly; J81.1 Chronic pulmonary edema; D64.9 Anemia, unspecified; Z87.891 Personal history of nicotine dependence
CPT/HCPCS: 36415; 71045; 80053; 83880; 84484; 85025; 93005; 99283; A9270-GY

== ENCOUNTER 2017-02-18 08:49 | Emergency (ER) | payer OTHER ==
[2017-02-18 09:41] LABS: Hematocrit 31 % (35-47); Hemoglobin 9.5 g/dl (12.0-16.0); Mean Corpuscular HGB Conc 31 g/dl (31-36); Mean Corpuscular Hemoglobin 21 pg (27-31); Mean Corpuscular Volume 68 fL (80-97); Mean Platelet Volume 10 um3 (7.4-10.4); Platelet Count 201 10^3/ul (150-450); Red Blood Count 4.53 10^6/ul (4.0-5.4); Red Cell Distribution Width 23 % (10.5-15); White Blood Count 7.9 10^3/ul (3.5-10.8)
[2017-02-18 09:46] LABS: EGFR Non-African American 83.4 (>60)
--- NOTE | 2017-02-18 10:10 | RAD ---
Indication: Chest tightness, pain, heart palpitations since this morning. COPD. History of tobacco use. Comparison: February 08, 2017 chest radiograph and January 22, 2017 CT. Technique: Upright AP 0930 hours Report: Large body habitus limits image quality. Mild prominence of the interstitial markings. No compelling alveolar infiltrate, focal pulmonary lesion, pleural effusion, pneumothorax. Mild cardiomegaly. Prominent central pulmonary vasculature with peripheral attenuation. IMPRESSION: 1. No acute cardiopulmonary process evident. 2. Based on correlation with the prior CT there is high probability for pulmonary arterial hypertension.
--- NOTE | 2017-02-18 10:56 | ED ---
Shortness of Breath - HPI Summary HPI Summary: Patient presents to the ED with CC of feeling of chest tightness over midsternal chest when awakening this morning. She noted her O2 was off and she placed it back on a 3L NC. Immediatley she felt a feeling of chest tightness which did not radiate and dissipated after a few minutes. Denies any worsening SOB. Denies SRINIVASAN, confusion, weakness. She was recently seen for the same and dx with COPD exacerbation and given bronchitis d.t some sweats and chills. Hx of lung malignancy and possible mets. She is to follow up with PCP next week. She has recently been prescribed oxygen at home and uses between 2L and 3L daily and nightly. 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 Hx also includes HTN, HLD. Endorses family history ( brother of PA at 32). She is immunocompromised as she has been on steroids and abx. - History of Current Complaint Chief Complaint: EDChestPainROMI Time Seen by Provider: 02/18/17 09:10 Hx Obtained From: Patient Onset/Duration: Sudden Onset Timing: Constant Current Severity: Mild Dyspnea At: Rest Associated Signs & Symptoms: Chest Pain Unrelated to Cough Related History: Obesity, Similar Episode - Risk Factors Pulmonary Embolism: Malignancy Tuberculosis: Corticosteriod Use - Allergy/Home Medications Allergies/Adverse Reactions: Allergies Allergy/AdvReac Type Severity Reaction Status Date / Time No Known Allergies Allergy Verified 01/22/17 18:30 Home Medications: Home Medications Gabapentin CAP(*) [Neurontin 300 CAP(*)] 600 mg PO BID 02/18/17 [History Confirmed 02/18/17] Insulin GLARGINE(*) [Lantus(*)] 60 units SUBCUT QPM 02/18/17 [History Confirmed 02/18/17] Insulin GLARGINE(*) [Lantus(*)] 65 units SUBCUT QAM 02/18/17 [History Confirmed 02/18/17] Insulin LISPRO* [HumaLOG*] 30 - 34 units SUBCUT TID WITH MEALS 02/18/17 [ History Confirmed 02/18/17] Lactobacillus [Probiotic] 1 cap PO DAILY 02/18/17 [History Confirmed 02/18/17] Multivitamins/Minerals TAB* [Theragran/minerals TAB*] 1 tab PO DAILY 02/18/17 [ History Confirmed 02/18/17] Eustace-3 Fatty Acids (Nf) [Fish Oil (NF)] 1,000 mg PO DAILY 02/18/17 [History Confirmed 02/18/17] Ramipril CAP* [Altace CAP*] 10 mg PO DAILY 02/18/17 [History Confirmed 02/18/17] PMH/Surg Hx/FS Hx/Imm Hx Previously Healthy: Yes Endocrine/Hematology History: Reports: Hx Diabetes Denies: Hx Systemic Lupus Erythematosus, Hx Thyroid Disease Cardiovascular History: Reports: Hx Hypercholesterolemia, Hx Hypertension, Other Cardiovascular Problems/Disorders - afib Denies: Hx Congestive Heart Failure Respiratory History: Reports: Hx Chronic Obstructive Pulmonary Disease (COPD), Hx Pneumonia, Hx Sleep Apnea, Other Respiratory Problems/Disorders - RESPIRATORY FAILURE (per admission hx) GI History: Reports: Hx Gall Bladder Disease - removed, Other GI Disorders - umbilical hernia, constipation History: Reports: Other Problems/Disorders - per admission Hx - UTIs Denies: Hx Dialysis, Hx Renal Disease Musculoskeletal History: Reports: Hx Arthritis, Hx Back Problems - pain, Other Musculoskeletal History - sciatica, back pain Denies: Hx Rheumatoid Arthritis Sensory History: Reports: Hx Contacts or Glasses Denies: Hx Cataracts, Hx Hearing Aid Opthamlomology History: Reports: Hx Contacts or Glasses Denies: Hx Cataracts Neurological History: Reports: Other Neuro Impairments/Disorders - neuropathy Psychiatric History: Reports: Hx Anxiety - active - Cancer History Cancer Type, Location and Year: Uterine CA Hx Chemotherapy: No Hx Radiation Therapy: Yes - Surgical History Surgery Procedure, Year, and Place: humerus repair . hysterectomy 2010 d/ t uterine cx. cholecystectomy when in her 40s. c/s. tonsilectomy Hx Anesthesia Reactions: No - Immunization History Hx Pertussis Vaccination: No Immunizations Up to Date: Unable to Obtain/Confirm Infectious Disease History: No Infectious Disease History: Denies: Hx of Known/Suspected MRSA, History Other Infectious Disease, Traveled Outside the [place] in Last 30 Days - Family History Known Family History: Positive: None, Cardiac Disease - coronary artery disease Negative: Blood Disorder Family History: R & n/C - Social History Occupation: Unemployed Lives: Alone Alcohol Use: None Hx Substance Use: No Substance Use Type: Reports: None, Marijuana Substance Use Comment - Amount & Last Used: "in cookie a few days ago" Hx Tobacco Use: Yes - 50 pack year history Smoking Status (MU): Former Smoker Type: Cigarettes Amount Used/How Often: 1 ppd + Length of Time of Smoking/Using Tobacco: 40 years Have You Smoked in the Last Year: No Review of Systems Constitutional: Negative Negative: Fever, Chills, Fatigue, Skin Diaphoresis Eyes: Negative Negative: Dental Pain, Sore Throat, Ear Ache Positive: Chest Pain Positive: Shortness Of Breath. Negative: Cough Negative: Abdominal Pain, Vomiting, Diarrhea Positive: no symptoms reported, see HPI Musculoskeletal: Negative Neurological: Negative All Other Systems Reviewed And Are Negative: Yes Physical Exam Triage Information Reviewed: Yes Vital Signs On Initial Exam: Initial Vitals Temp Pulse Resp BP Pulse Ox 98.2 F 88 22 160/50 94 02/18/17 08:51 02/18/17 08:51 02/18/17 08:51 02/18/17 08:51 02/18/17 08:51 Vital Signs Reviewed: Yes Appearance: Positive: Well-Appearing, Well-Nourished Skin: Positive: Warm, Skin Color Reflects Adequate Perfusion Head/Face: Positive: Normal Head/Face Inspection Eyes: Positive: EOMI, KEITH, Conjunctiva Clear Neck: Positive: Supple Respiratory/Lung Sounds: Positive: Decreased Breath Sounds. Negative: Rales, Rhonchi, Wheezes, Unable to speak in full sentences, Fatigue Cardiovascular: Positive: RRR, Pulses are Symmetrical in both Upper and Lower Extremities Musculoskeletal: Positive: Edema Left, Edema Right Neurological: Positive: Alert, Oriented to Person Place, Time, Speech Normal - Andrew Coma Scale Coma Scale Total: 15 Diagnostics - Vital Signs Vital Signs Temp Pulse Resp BP Pulse Ox 02/18/17 10:00 75 17 120/65 98 02/18/17 09:47 76 19 117/54 96 02/18/17 09:30 77 21 78/52 95 02/18/17 09:15 76 18 97 02/18/17 09:12 122/45 02/18/17 08:51 98.2 F 88 22 160/50 94 - Laboratory Lab Results: Lab Results 02/18/17 02/18/17 02/18/17 Range/Units 09:20 09:20 09:20 WBC 7.9 (3.5-10.8) 10^3/ul RBC 4.53 (4.0-5.4) 10^6/ul Hgb 9.5 L (12.0-16.0) g/dl Hct 31 L (35-47) % MCV 68 L (80-97) fL MCH 21 L (27-31) pg MCHC 31 (31-36) g/dl RDW 23 H (10.5-15) % Plt Count 201 (150-450) 10^3/ul MPV 10 (7.4-10.4) um3 Neut % (Auto) Pending Lymph % (Auto) Pending Vermilion % (Auto) Pending Eos % (Auto) Pending Baso % (Auto) Pending Absolute Neuts (auto) Pending Absolute Lymphs (auto) Pending Absolute Monos (auto) Pending Absolute Eos (auto) Pending Absolute Basos (auto) Pending Absolute Nucleated RBC Pending Nucleated RBC % Pending Sodium 137 (133-145) mmol/L Potassium 4.0 (3.5-5.0) mmol/L Chloride 100 L (101-111) mmol/L Carbon Dioxide 28 (22-32) mmol/L Anion Gap 9 (2-11) mmol/L BUN 20 (6-24) mg/dL Creatinine 0.71 (0.51-0.95) mg/dL Est GFR ( Amer) 107.3 (>60) Est GFR (Non-Af Amer) 83.4 (>60) BUN/Creatinine Ratio 28.2 H (8-20) Glucose 187 H (70-100) mg/dL Lactic Acid 2.6 H* (0.5-2.0) mmol/L Calcium 9.5 (8.6-10.3) mg/dL Total Bilirubin 0.40 (0.2-1.0) mg/dL AST 12 L (13-39) U/L ALT 16 (7-52) U/L Alkaline Phosphatase 115 H (34-104) U/L Troponin I 0.01 (<0.04) ng/mL B-Natriuretic Peptide ( - 100) pg/mL Total Protein 6.8 (6.4-8.9) g/dL Albumin 3.8 (3.2-5.2) g/dL Globulin 3.0 (2-4) g/dL Albumin/Globulin Ratio 1.3 (1-3) 02/18/17 Range/Units 09:20 WBC (3.5-10.8) 10^3/ul RBC (4.0-5.4) 10^6/ul Hgb (12.0-16.0) g/dl Hct (35-47) % MCV (80-97) fL MCH (27-31) pg MCHC (31-36) g/dl RDW (10.5-15) % Plt Count (150-450) 10^3/ul MPV (7.4-10.4) um3 Neut % (Auto) Lymph % (Auto) Vermilion % (Auto) Eos % (Auto) Baso % (Auto) Absolute Neuts (auto) Absolute Lymphs (auto) Absolute Monos (auto) Absolute Eos (auto) Absolute Basos (auto) Absolute Nucleated RBC Nucleated RBC % Sodium (133-145) mmol/L Potassium (3.5-5.0) mmol/L Chloride (101-111) mmol/L Carbon Dioxide (22-32) mmol/L Anion Gap (2-11) mmol/L BUN (6-24) mg/dL Creatinine (0.51-0.95) mg/dL Est GFR ( Amer) (>60) Est GFR (Non-Af Amer) (>60) BUN/Creatinine Ratio (8-20) Glucose (70-100) mg/dL Lactic Acid (0.5-2.0) mmol/L Calcium (8.6-10.3) mg/dL Total Bilirubin (0.2-1.0) mg/dL AST (13-39) U/L ALT (7-52) U/L Alkaline Phosphatase (34-104) U/L Troponin I (<0.04) ng/mL B-Natriuretic Peptide 12 ( - 100) pg/mL Total Protein (6.4-8.9) g/dL Albumin (3.2-5.2) g/dL Globulin (2-4) g/dL Albumin/Globulin Ratio (1-3) Result Diagrams: 02/18/17 09:20 02/18/17 09:20 Lab Statement: Any lab studies that have been ordered have been reviewed, and results considered in the medical decision making process. - Radiology No standard instances Xray Interpretation: Positive (See Comments) Radiology Interpretation Completed By: Radiologist - Xray read by radiologist and myself, Honey Cedeño PA-C and agreed with findings. Re-Evaluation - Re-Evaluation First Eval Change: Improved - patient continues to feel improved and remains asymptomatic Course/Dx - Course Course Of Treatment: During the course of treament, patient is evaluated for chest pain. Trop neg at 0.01. She remains on O2 in the ED with good effect. VS stable and she sats at 97. BP low at 78/52 on arrival, but fell WNL after placed in room at 120/82. She is in NAD and is asymptomatic on arrival. BNP ok at 12.1. Lactic 2.9. Trop # 1 0.01; Trop #2 0.01. She states she has had a yeast infection x 1 week since finishing her anitbiotic. She denies any new symptoms other than yeast infection and is OK with discharge with follow up with Dr. Crocker and Dr Millan (patient has an appt on 03/08). She remains on NC O2 3L. IMPRESSION: 1. No acute cardiopulmonary process evident. 2. Based on correlation with the prior CT there is high probability for pulmonary arterial. hypertension. EKG shows no changes from previous visit. Dr. Tavarez consulted and agrees with plan of discharge d/t 2 negative trops, stable chest xray and EKG, asymptomatic and similar symptoms related to her oxygen mishap overnights. This is likely acute and also contributed by her pulmonary HTN. - Diagnoses Differential Diagnosis/HQI/PQRI: Positive: Chest Wall Pain, Pulmonary Edema Provider Diagnoses: Chest tightness Discharge - Discharge Plan Condition: Stable Disposition: HOME Prescriptions: Fluconazole 150 MG (NF) [Diflucan 150 mg (NF)] 150 mg PO ONCE #2 tab Referrals: Cindy Millan MD [Medical Doctor] - As Soon As Possible Yong Crocker MD [Primary Care Provider] - 1 Week Additional Instructions: Please follow up with your PCP and Dr. Millan If you develop any new, worsening symptoms - return to the ED immediately Continue with your O2 at home as needed Diflucan has been prescribed to you - take 1 tab now and 1 tab 3 days from now Continue to use the refresh Stay hydrated
[2017-02-18 11:11] LABS: ABS Basophils 0 10^3/ul (0-0.2); ABS Eosinophils 0.2 10^3/ul (0-0.6); ABS Lymphocytes 1.7 10^3/ul (1.0-4.8); ABS Monocytes 0.5 10^3/ul (0-0.8); ABS Neutrophils 5.5 10^3/ul (1.5-7.7); ABS Nucleated RBC 0 10^3/ul; Eosinophil % 2.3 % (0-6); Lymphocyte % 21.4 % (25-47); Nucleated Red Blood Cells % 0
[2017-02-18 11:58] VITALS: BP 129/37
== END 2017-02-18 11:56 | disposition home or self-care (01) ==
LOC: ED 08:49
DX: R07.89 Other chest pain (principal); R05 Cough; E11.9 Type 2 diabetes mellitus without complications; Z87.09 Personal history of other diseases of the respiratory system; Z87.891 Personal history of nicotine dependence
CPT/HCPCS: 36415; 71045; 80053; 83605; 83880; 84484; 85025; 85060; 93005; 99283

== ENCOUNTER 2017-12-12 09:48 | Emergency (ER) | payer OTHER ==
--- NOTE | 2017-12-12 10:51 | ED ---
Lower Extremity - HPI Summary HPI Summary: A 62 y/o female presents to the ED with intermittent left leg spasms, specifically in her calf, since 02:00 12/12/2017. The pt is diabetic but stopped taking her usual 200mg Metformin yesterday because she believes it is making her dehydrated. She also c/o general weakness, trouble ambulating due to her weight, SOB and heartburn, but states she has not had heartburn recently. She denies SRINIVASAN, Fever, Chills, Erythema (eyes), Sore throat, Chest pain, Cough, Abdominal pain, Vomiting, Nausea, Dysuria, Hematuria, Myalgia, Edema, Rash and Dizziness. The pt has a FHx of IN and CHF. She has a Hx of sleep apnea, a PHx of PNA but denies a Hx of blood clots. - History of Current Complaint Chief Complaint: EDGeneral Stated Complaint: MUSCLE SPASM IN LT LEG Time Seen by Provider: 12/12/17 10:17 Hx Obtained From: Patient Mechanism Of Injury: Unknown Onset of Pain: Prior to Arrival Onset/Duration: Hours Severity Initially: Mild Severity Currently: Mild Pain Intensity: 0 Pain Scale Used: 0-10 Numeric Timing: Intermittent Location: Is Discrete @ - left calf Associated Signs And Symptoms: Positive: Weakness Aggravating Factor(s): Ambulation - trouble ambulating, but pt states it is due to her weight and not because of muscle spasms - Allergies/Home Medications Allergies/Adverse Reactions: Allergies Allergy/AdvReac Type Severity Reaction Status Date / Time No Known Allergies Allergy Verified 01/22/17 18:30 Home Medications: Home Medications Albuterol HFA INHALER* [Ventolin HFA Inhaler*] 2 puff INH Q4H PRN 12/12/17 [ History Confirmed 12/12/17] Aspirin EC TAB* [Ecotrin EC Low Dose 81 MG*] 162 mg PO DAILY 12/12/17 [History Confirmed 12/12/17] Atorvastatin* [Lipitor*] 80 mg PO DAILY 12/12/17 [History Confirmed 12/12/17] Calcium Carbonate/Vitamin D3 [Calcium 600 + Vit D Tablet] 1 tab PO DAILY [History Confirmed 12/12/17] Docusate CAP* [Colace Cap*] 200 mg PO DAILY 12/12/17 [History Confirmed 12/12/17 ] Ramipril CAP* [Altace CAP*] 10 mg PO DAILY 12/12/17 [History Confirmed 12/12/17] metFORMIN* [Glucophage 1000 MG TAB *] 1,000 mg PO BID 12/12/17 [History Confirmed 12/12/17] PMH/Surg Hx/FS Hx/Imm Hx Endocrine/Hematology History: Reports: Hx Diabetes Denies: Hx Systemic Lupus Erythematosus, Hx Thyroid Disease Cardiovascular History: Reports: Hx Hypercholesterolemia, Hx Hypertension, Other Cardiovascular Problems/Disorders - afib Denies: Hx Congestive Heart Failure Respiratory History: Reports: Hx Chronic Obstructive Pulmonary Disease (COPD), Hx Pneumonia, Hx Sleep Apnea, Other Respiratory Problems/Disorders - RESPIRATORY FAILURE (per admission hx) GI History: Reports: Hx Gall Bladder Disease - removed, Other GI Disorders - umbilical hernia, constipation History: Reports: Other Problems/Disorders - per admission Hx - UTIs Denies: Hx Dialysis, Hx Renal Disease Musculoskeletal History: Reports: Hx Arthritis, Hx Back Problems - pain, Other Musculoskeletal History - sciatica, back pain Denies: Hx Rheumatoid Arthritis Sensory History: Reports: Hx Contacts or Glasses Denies: Hx Cataracts, Hx Hearing Aid Opthamlomology History: Reports: Hx Contacts or Glasses Denies: Hx Cataracts Neurological History: Reports: Other Neuro Impairments/Disorders - neuropathy Psychiatric History: Reports: Hx Anxiety - active - Cancer History Cancer Type, Location and Year: Uterine CA Hx Chemotherapy: No Hx Radiation Therapy: Yes - Surgical History Surgery Procedure, Year, and Place: humerus repair . hysterectomy 2009 d/ t uterine cx. cholecystectomy when in her 40s. c/s. tonsilectomy Hx Anesthesia Reactions: No Infectious Disease History: No Infectious Disease History: Denies: Hx of Known/Suspected MRSA, History Other Infectious Disease, Traveled Outside the [place] in Last 30 Days - Family History Known Family History: Positive: Cardiac Disease - coronary artery disease, CHF, IN Negative: Blood Disorder Family History: R & n/C - Social History Alcohol Use: None Hx Substance Use: No Substance Use Type: Reports: Marijuana Substance Use Comment - Amount & Last Used: occasionally eats pot brownies Hx Tobacco Use: Yes - 50 pack year history Smoking Status (MU): Former Smoker Type: Cigarettes Amount Used/How Often: 1 ppd + Length of Time of Smoking/Using Tobacco: 40 years Have You Smoked in the Last Year: No Review of Systems Constitutional: Other - positive: dehydrated Negative: Fever, Chills Negative: Erythema Negative: Sore Throat Positive: Other - Positive: heartburn but not recently. Negative: Chest Pain Positive: Shortness Of Breath. Negative: Cough Negative: Abdominal Pain, Vomiting, Nausea Negative: dysuria, hematuria Positive: Other - left calf spasms, trouble ambulating. Negative: Myalgia, Edema Negative: Rash Neurological: Negative - dizizness Positive: Weakness. Negative: Headache All Other Systems Reviewed And Are Negative: Yes Physical Exam - Summary Physical Exam Summary: Constitutional: Well-developed, Obese, Alert. (-) Distressed Skin: Warm, Dry HENT: Normocephalic; Atraumatic Eyes: Conjunctiva normal Neck: Musculoskeletal ROM normal neck. (-) JVD, (-) Stridor, (-) Tracheal deviation Cardio: Rhythm regular, rate normal, Heart sounds normal; Intact distal pulses; The pedal pulses are 2+ and symmetric. Radial pulses are 2+ and symmetric. (-) Murmur Pulmonary/Chest wall: Effort normal. (-) Respiratory distress, (-) Wheezes, (-) Rales Abd: Soft, (-) epigastric tenderness, (-) Distension, (-) Guarding, (-) Rebound Musculoskeletal: Venous stasis changes in legs Lymph: (-) Cervical adenopathy Neuro: Alert, Oriented x3 Psych: Mood and affect Normal Triage Information Reviewed: Yes Vital Signs On Initial Exam: Initial Vitals Temp Pulse Resp BP Pulse Ox 98.4 F 80 20 155/70 97 12/12/17 10:01 12/12/17 10:01 12/12/17 10:01 12/12/17 10:01 12/12/17 10:01 Vital Signs Reviewed: Yes Diagnostics - Vital Signs Vital Signs Temp Pulse Resp BP Pulse Ox 12/12/17 10:01 98.4 F 80 20 155/70 97 - Laboratory Result Diagrams: 12/12/17 10:28 12/12/17 10:28 Lab Statement: Any lab studies that have been ordered have been reviewed, and results considered in the medical decision making process. - Radiology CXR Radiology Interpretation Completed By: Radiologist - Cardiomegaly with interstitial edema consistent with vascular congestion. The ED physician has reviewed this report. - Ultrasound No standard instances Ultrasound Interpretation Completed By: Radiologist - VL LOWER EXT VEINS LEFT: No evidence of deep venous thrombosis is identified. This report has been reviewed by the ED physician. - EKG 10:33 Cardiac Rate: NL - 78 bpm EKG Rhythm: Sinus Rhythm Summary of EKG Findings: no STEMI Lower Extremity Course/Dx - Course Course Of Treatment: A 62 y/o female presents to the ED with intermittent left leg spasms since 02:00 12/12/2017. Her PE revealed venous stasis changes in her legs. Her EKG was normal and her US was negative for DVT. Her CXR showed interstitial edema. Per the hospitalist, Dr. Ogden, she will be discharged. Dx : pulmonary edema, anemia, lymphedema. The pt has O2 at home and will use it as needed. - Diagnoses Provider Diagnoses: Anemia, Pulmonary edema, Lymphedema - Physician Notifications Discussed Care Of Patient With: Moreno Ogden Time Discussed With Above Provider: 13:45 Instructed by Provider To: MD Will See In ED - Pt will be discharged Discharge - Sign-Out/Discharge Documenting (check all that apply): Patient Departure - DC - Discharge Plan Condition: Stable Disposition: HOME Patient Education Materials: Pulmonary Edema (ED), Anemia (ED), Lymphedema (ED) Referrals: Yong Crocker MD [Primary Care Provider] - 2 Days Additional Instructions: RETURN TO THE EMERGENCY DEPARTMENT FOR CHANGING OR WORSENING SYMPTOMS - Attestation Statements Document Initiated by Scribe: Yes Documenting Scribe: Renny Gonzalez Provider For Whom Scribe is Documenting (Include Credential): Giles Garcia MD Scribe Attestation: Renny Valdes, scribed for Giles Garcia MD on 12/12/17 at 1402.
[2017-12-12 10:56] LABS: EGFR Non-African American 84.5 (>60)
[2017-12-12] MEDS ORDERED: NS 0.9% 1000 ML* 1,000 ML IV ONE (11:31)
[2017-12-12 11:47] LABS: ABS Basophils 0 10^3/ul (0-0.2); ABS Neutrophils 6.3 10^3/ul (1.5-7.7); Hematocrit 30 % (35-47); Hemoglobin 8.6 g/dl (12.0-16.0); Mean Corpuscular HGB Conc 29 g/dl (31-36); Mean Corpuscular Hemoglobin 18 pg (27-31); Mean Corpuscular Volume 63 fL (80-97); Mean Platelet Volume 9.1 fL (7.4-10.4); Monocytes % 6 % (0-7); Platelet Count 281 10^3/ul (150-450); Red Blood Count 4.68 10^6/ul (4.00-5.40); Red Cell Distribution Width 21 % (10.5-15); White Blood Count 9.7 10^3/ul (3.5-10.8)
[2017-12-12] MEDS ORDERED: Furosemide IV* 10 MG/ML VIAL (40 MG) IV SLOW PU ONE (12:00)
[2017-12-12 12:12] LABS: Urine Appearance Clear; Urine Blood Negative (Negative); Urine Color Straw; Urine Ketones Negative (Negative); Urine Protein Negative (Negative); Urine Specific Gravity 1.005 (1.010-1.030); Urine Urobilinogen Negative (Negative)
[2017-12-12 14:36] VITALS: BP 143/71
--- NOTE | 2017-12-12 20:45 | CONS ---
CONSULTATION REPORT: DATE OF CONSULT: 12/12/17 - EMERGENCY DEPT SERVICE REQUESTING CONSULTATION: Emergency room, Dr. Giles Garcia. REASON FOR CONSULT: Left leg pain. SOURCE OF INFORMATION: History obtained from interview with the patient. RELIABILITY: Fair. CHIEF COMPLAINT: Left leg pain. HISTORY OF PRESENT ILLNESS: This is a 62-year-old female with past medical history of COPD with chronic respiratory failure, uses oxygen at home as well as 1 L during the day p.r.n.; ELIZABETH, does not use CPAP; type 2 diabetes; and lymphedema, who has had increased stress at home secondary to money as well as her daughter getting as well as her who has alcohol abuse. She felt okay over the weekend, although increasingly anxious. Over the last night around 2 a.m., she awoke with left calf pain that felt like pulling, described as "like a charley horse," got up and drank water. The pain lasted for approximately 5 minutes, but she could not fall back to sleep. In the morning, her suggested she "walk it off." She walked around without any exacerbation of the pain or relief. She did not take her medicine in the morning because she was afraid that her home metformin was going to cause anxiety and/or dehydration. She had a dull pain that remained in her left calf and therefore sought evaluation in the emergency room. In the emergency room, she was noted to have anemia, worse since approximately 11 months prior, and the hospitalist service was consulted for admission. The patient denies any shortness of breath at home, dyspnea on exertion. She has stable orthopnea. No PND. No chest pain, shortness of breath, palpitations, nausea, vomiting, melena, bright red blood per rectum. She reports her last colonoscopy was approximately last year. PAST MEDICAL HISTORY: Includes COPD with chronic respiratory failure, uses oxygen at home as well as 1 L p.r.n. during the day; ELIZABETH, not on CPAP; type 2 diabetes; a history of "bout of AFib" per our chart review, the patient denies; history of neuropathy; obesity; chronic lower back pain. PAST SURGICAL HISTORY: She has history of bilateral oophorectomy, hysterectomy secondary to uterine cancer. She has history of right ankle ORIF in 2017 and tonsillectomy. MEDICATIONS: Are reviewed, as in the computer: 1. Albuterol. 2. Atorvastatin. 3. Aspirin. 4. Calcium carbonate. 5. Gabapentin. 6. Furosemide. 7. Glargine. 8. Nystatin cream. 9. Multivitamin. 10. Lactobacillus. 11. Lispro sliding scale. 12. Metformin. 13. Ramipril. 14. [place]-3 fatty acids. 15. Docusate. ALLERGIES: No known drug allergies. FAMILY HISTORY: Her mother had diabetes. SOCIAL HISTORY: Has 2-1/2 packs per day x30 years, quit in 2009. No alcohol. 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 REVIEW OF SYSTEMS: As per HPI. PHYSICAL EXAM: Vitals: In the emergency room, 161/87, heart rate 81, respiratory rate is 16, O2 sat was 93% on room air when seen by this author, T- max 98.4. Obese woman, sitting up in bed, interactive, pleasant, in no apparent distress. Oropharynx is clear. She has moist mucous membranes. Sclerae are anicteric. She has regular rate and rhythm. No murmurs, rubs, or gallops. Her lungs are clear to auscultation throughout. Her abdomen is soft, nontender, and nondistended. Her extremities have tense bilateral lower extremity pitting edema, reportedly unchanged from baseline. She has faint erythema in pretibial region bilaterally symmetric. She is A and O x3. Cranial nerves II through XII are intact. She has no pain with flexion or extension of her left ankle or with palpation of her left thigh. DIAGNOSTIC STUDIES/LAB DATA: Pertinent laboratory data: Stool occult is negative. Her MCV is 63, decreased from 67 in January 2017. Her hemoglobin is 8.6, decreased from 9.5 in February 2017. Her troponin is 0.01. Her BNP is 23. Her urine is bland and dilute. Data reviewed. Lower extremity venous Doppler. No evidence of DVT identified. Chest x-ray is cardiomegaly with interstitial edema consistent with vascular congestion. ASSESSMENT AND PLAN: This 62-year-old female presented to the hospital for evaluation of left lower leg pain, found with chest x-ray consistent with pulmonary vascular congestion. 1. Anemia. Negative stool occult. No history of overt bleeding. Has a declining MCV and hemoglobin for over the last year. I suspect evolving anemia , likely iron deficiency. This warrants further workup with Dr. Crocker and we discussed this together. She reports colonoscopy a year ago, but she has no overt evidence of ongoing bleeding that would require hospital stay, although it does require further attention as an outpatient. 2. Interstitial pulmonary edema without oxygen requirement with no shortness of breath and with baseline BNP. The patient is to continue with her Lasix. Does not warrant hospital stay at this time or further intervention. 3. Left lower leg pain. No deep venous thrombosis. It does sound like she had a cramp in the middle of the night, which has been slow to resolve. She warrants no further imaging at this time. All other medical conditions stable. The patient is to return with worsening symptoms including worsening lower leg pain, shortness of breath, chest pain, nausea, vomiting, lightheadedness, loss of consciousness, bleeding from any source, or dark black stool. The patient acknowledged understanding. TIME SPENT: Greater than 60 minutes was spent on the consultation of this patient, greater than half was spent [id number] with the patient. [id number]/[facility] #: [id number] MARIE
== END 2017-12-12 14:36 | disposition home or self-care (01) ==
LOC: ED 09:48
DX: I89.0 Lymphedema, not elsewhere classified (principal); J81.1 Chronic pulmonary edema; D64.9 Anemia, unspecified; J44.9 Chronic obstructive pulmonary disease, unspecified; E11.9 Type 2 diabetes mellitus without complications; I48.91 Unspecified atrial fibrillation; M54.5 Low back pain; G89.29 Other chronic pain; E66.9 Obesity, unspecified; Z79.84 Long term (current) use of oral hypoglycemic drugs; I51.7 Cardiomegaly
CPT/HCPCS: 36415; 71046; 80053; 81003; 82272; 83605; 83735; 83880; 84443; 84484; 85025; 85060; 93005; 96361; 96374; 99283; J1940

== ENCOUNTER 2018-12-23 13:06 | Emergency (ER) | payer OTHER ==
--- OUTSIDE RECORDS SUMMARY | 2018-12-23 13:29 | XMS REPORT | Continuity of Care Document ---
:1955 External Reference #:[id number] Author Name Olga Leigh O.D. Address [address] [place] [address] Care Team Providers Name Role Phone Yong Crocker M.D. - Family Medicine Care Team Information National Secretary [phone] Allison Gonzalez-C - Family Care Team Information National Secretary Problems Active Problems Provider Date Type 2 diabetes mellitus Onset: Chronic obstructive lung disease Onset: Lumbosacral spondylosis Onset: Herniation of nucleus pulposus Onset: Sleep apnea Onset: Presbyopia Olga Leigh O.D. Onset: 11/28/2018 Regular astigmatism Olga Leigh O.D. Onset: 11/28/2018 Hypermetropia Olga Leigh O.D. Onset: 11/28/2018 Nuclear senile cataract Olga Leigh O.D. Onset: 11/28/2018 Social History Type Date Description Comments Sex Unknown ETOH Use Denies alcohol use Tobacco Use Start: Unknown End: Unknown Patient is a former smoker Recreational Drug Use Never Used Drugs Smoking Status Reviewed: 11/28/18 Patient is a former smoker Allergies, Adverse Reactions, Alerts Description No Known Drug Allergies Medications Active Medications SIG Qnty Indications Ordering Date Provider Calcium 1000 + D Unknown [id number]-[id number] Tablets Fish Oil 1 by mouth every day Unknown 1000mg Capsules Metformin HCL TK 1 T PO bid Unknown 500mg Tablets Humalog Kwikpen Inject 30 Units Unknown Subcutaneously Three 200Unit/ML Solution Times A Day With Meals Pen-Inject Gabapentin Take 2 Capsules By Unknown 300mg Mouth Twice A Day Capsules Basaglar Kwikpen Inject 65 Units Unknown Subcutaneously Every 100Unit/ML Solution Morning And Inject 35 Pen-Inject Units Every Evening Atorvastatin Calcium TK 1 T PO D Unknown 80mg Tablets Pantoprazole Sodium TK 1 T PO D Unknown 40mg Tablets DR Furosemide Take 1 Tablet By Mouth Unknown 40mg Once Daily Tablets Nystatin/Triamcinolo Apply Topically bid Unknown ne Acetonide Utd 186496-6.1Unit/GM-% Cream Spiriva Handihaler Unknown 18mcg Capsules Ventolin HFA Unknown 108(90Base) mcg/Act Aerosol Benzonatate take 1 capsule by Unknown 100mg mouth three times a Capsules day if needed for cough Immunizations Description No Information Available Vital Signs Description No Information Available Results Description No Information Available Procedures Description No Information Available Medical Devices Description No Information Available Encounters Description No Information Available Assessments Date Code Description Provider 11/28/2018 E11.9 Type 2 diabetes mellitus without Olga Leigh O.D. complications 11/28/2018 H25.13 Age-related nuclear cataract, bilateral Olga Leigh O.D. 11/28/2018 H52.03 Hypermetropia, bilateral Olga Leigh O.D. 11/28/2018 H52.223 Regular astigmatism, bilateral Olga Leigh O.D. 11/28/2018 H52.4 Presbyopia Olga Leigh O.D. Plan of Treatment 11/28/2018 - Olga Leigh O.D.E11.9 Type 2 diabetes mellitus without complicationsComments:You have diabetes. I do not detect any changes in both of your retinas from diabetes at this time. Proper control of your diabetes is important for the health of your eyes. Changes in your eyes from diabetes can happen without symptoms, so it is important that you have your eyes examined.Follow up:1 YEARH25.13 Age-related nuclear cataract, bilateralComments: You have been diagnosed with cataracts. If you are happy with your vision as it is now, then we willsee you at your next scheduled appointment. If you feel like your vision is getting worse before your scheduled appointment, please call [facility] at [phone].H52.03 Hypermetropia, bilateralComments:You have Hyperopia, or far sightednessFollow up:NEXT AVAILABLE MANIFEST ONLY IF AZQSYLPY67.223 Regular astigmatism, bilateralComments:Astigmatism is a common vision condition that happens when a person's cornea is not symmetrical. Dr. Leigh has given you a prescription to correct for this.H52.4 PresbyopiaComments :Smoking can increase the risk of developing or worsening any eye related disease, as well as affect your overall health. If you are a smoker, we strongly recommend that you quit.If you are not a smoker, we strongly recommend that you do not start. You have presbyopia. This is when the lens in your eye loses the ability to change focus, and happens as we age. A pair of reading glasses will help you see up close. Functional Status Description No Information Available Mental Status Description No Information Available Referrals Description No Information Available
--- OUTSIDE RECORDS SUMMARY | 2018-12-23 13:29 | XMS REPORT | Summary of Care ---
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 Reason for Visit Reason Comments Follow Up f/u labs Encounter Details Date Type Department Care Team Description 11/16/2018 Office Visit [place], Cellulitis of right lower extremity (Primary Dx); Practice ISREAL Cooper Type II diabetes mellitus with neurological manifestations (HCC); [address] [place] [address] Mixed hyperlipidemia; [place] [address] Essential hypertension, benign; [phone] Other iron deficiency anemia Allergies No Known Allergiesdocumented as of this encounter (statuses as of 11/16/2018) Medications Medication Sig Dispensed Refills Start Date End Date Status Calcium-Vitamin D Take 600 mg by mouth 0 Active (CALCIUM + D PO) DAILY. Probiotic Product Take 1 Tab by mouth 0 Active (PROBIOTIC DAILY DAILY. PO) Docusate Sodium 100 Take 1 Tab by mouth 0 Active MG Oral Tab DAILY. Spacer/Aero-Holding 1 Device by Does not 1 Each 0 01/18/2017 Active Chambers Does not apply route apply DIRECTED. Use with DeviceIndications: MDI inhalers COPD with acute exacerbation (HCC) albuterol HFA Take 2 Puffs by 1 Inhaler 3 07/05/2017 Active (VENTOLIN) 108 (90 inhalation EVERY FOUR Base) MCG/ACT HOURS NEEDED Inhalation Aero (shortness of SolnIndications: breath). COPD exacerbation (HCC) tiotropium Take 1 INHL by 30 Cap 11 10/20/2017 Active (SPIRIVA) 18 MCG inhalation DAILY. Inhalation CapIndications: COPD exacerbation (HCC) Blood Glucose 1 Device by Does not 1 Device 0 12/15/2017 Active Monitor Software apply route Does not apply DIRECTED. Device Uncontrolled diabetes. Brand: Insurance preferred. [employer] device. Test 5 times daily NOVOFINE 32G X 6 MM use as directed twice 100 Each 3 01/12/2018 Active Does not apply Misc a day furosemide (LASIX) take 1 tablet by 90 Tab 3 03/23/2018 Active 40 MG Oral Tab mouth once daily gabapentin Take 2 Caps by mouth 360 Cap 3 05/12/2018 Active (NEURONTIN) 300 MG TWICE DAILY. Oral CapIndications: Neuropathy benzonatate Take 1 Cap by mouth 60 Cap 0 05/12/2018 Active (TESSALON PERLES) THREE TIMES DAILY 100 MG Oral Cap NEEDED for cough. HUMALOG KWIKPEN 200 INJECT 30 UNITS 15 mL 5 06/19/2018 Active UNIT/ML SUBCUTANEOUSLY THREE Subcutaneous TIMES A DAY WITH Solution MEALS Pen-injector atorvastatin Take 1 Tab by mouth 90 Tab 3 07/06/2018 Active (LIPITOR) 80 MG DAILY. Oral Tab nystatin-triamcinol 1 Act by Topical 60 g 2 07/06/2018 Active one (MYCOLOG) route TWICE DAILY. 874656-6.1 UNIT/GM-% Apply externally Cream pantoprazole Take 1 Tab by mouth 90 Tab 3 07/06/2018 Active (PROTONIX) 40 MG DAILY. Oral Tab EC Insulin Glargine Inject 35-65 Units 60 mL 3 07/06/2018 Active (LANTUS SOLOSTAR) beneath the skin 100 UNIT/ML TWICE DAILY. 65 units Subcutaneous in the am, 35 units Solution in the pm Pen-injector ramipril (ALTACE) Take 1 Cap by mouth 90 Cap 3 08/24/2018 Active 10 MG Oral Cap DAILY. metFORMIN Take 1 Tab by mouth 180 Tab 3 08/24/2018 Active (GLUCOPHAGE) 500 MG TWICE DAILY. Oral Tab CONTOUR NEXT TEST TEST BLOOD SUGAR 5 150 Strip 0 08/25/2018 Active In Vitro Strip TIMES A DAY cephalexin (KEFLEX) Take 1 Cap by mouth 30 Cap 0 11/16/2018 Active 500 MG Oral THREE TIMES DAILY. CapIndications: Cellulitis of right lower extremity documented as of this encounter (statuses as of 11/16/2018) Active Problems Problem Noted Date Diabetic polyneuropathy associated with type 2 diabetes mellitus 06/09/2016 COPD (chronic obstructive pulmonary disease) 06/22/2013 Overview: Diagnosis [facility] May 2013 Lumbosacral spondylosis 02/19/2013 Herniated nucleus pulposus, L4-5 right 02/19/2013 Obstructive sleep apnea 08/17/2012 Overview: Positive sleep study 2002 allie Dyspnea on exertion 08/19/2011 Overview: S/p nuclear treadmill stress test [facility] 2004 negative Tubular adenoma of colon 10/19/2010 Overview: Nayak polypectomy 09/2010 Morbid obesity 09/16/2010 Overview: bmi 46 11/18 This patient's BMI has been calculated and is above average, and BMI management plan is completed. General patient education discussion including: obesity-related excess mortality, weight loss link to reduction of risk factors for cardiac and other diseases, importance of long- term maintenance treatment in weight loss Microalbuminuria 07/07/2010 Type II diabetes mellitus with neurological manifestations 02/16/2010 Overview: Hemoglobin A1C 11% Dr Ortiz 06/2010 A1C 9.5 Hyperlipidemia 02/16/2010 History of tobacco use 02/16/2010 Overview: 50+ pack years, quit 2009 Uterine cancer 02/16/2010 Overview: S/p ROGELIO/BSO and XRT 2009 [place], [place] Oncologist Dr Willie Meneses [place] Essential hypertension, benign 02/16/2010 documented as of this encounter (statuses as of 11/16/2018) Resolved Problems Problem Noted Date Resolved Date Sprain of sacrum 12/15/2012 06/22/2013 Sprain of lumbar region 12/08/2012 06/22/2013 documented as of this encounter (statuses as of 11/16/2018) Immunizations Name Administration Dates Next Due Influenza (IM) Preservative Free 11/16/2018, 11/23/2017, 10/20/2016, 10/14/2011 Influenza (IM) W/Pres 10/18/2014, 11/22/2013 PNEUMOCOCCAL POLYSACCHARIDE VACCINE 01/06/2018 Pneumococcal Conjugate Vaccine 10/13/2009 Pneumococcal Conjugate(13 Valent) 07/10/2015 documented as of this encounter Social History Tobacco Use Types Packs/Day Years Used Date Former Smoker Cigarettes 3 20 Smokeless Tobacco: Never Used Alcohol Use Drinks/Week oz/Week Comments No 0 Standard drinks or equivalent 0.0 Sex Assigned at Date Recorded Not on file Job Start Date Occupation Industry Not on file Not on file Not on file Travel History Travel Start Travel End No recent travel history available. documented as of this encounter Last Filed Vital Signs Vital Sign Reading Time Taken Comments Blood Pressure 132/58 11/16/2018 1:10 PM EDT Pulse 90 11/16/2018 1:10 PM EDT Temperature - - Respiratory Rate - - Oxygen Saturation 91% 11/16/2018 1:10 PM EDT Inhaled Oxygen Concentration - - Weight 118.4 kg (261 lb) 11/16/2018 1:10 PM EDT Height 157.5 cm (5' 2") 11/16/2018 1:10 PM EDT Body Mass Index 47.74 11/16/2018 1:10 PM EDT documented in this encounter Patient Instructions Patient InstructionsAllison Gonzalez FNP - 11/16/2018 1:00 PM EDTStop all aspirin and ibuprofen. Can take tylenol (acetaminophen) if needed for pain. Schedule appointment with Dr Hugo Try to work on a consistent schedule with meals and insulin Follow up in 3 months for lab work and then office visit See Dr. Chery for eye exam Take antibiotic for leg. Call or return to clinic prn if these symptoms worsen or fail to improve as anticipated. documented in this encounter Progress Notes Allison Gonzalez FNP - 11/16/2018 1:00 PM EDT PATIENT: Elyssa Ty : 1955 DATE OF SERVICE: 11/16/2018 Chief Complaint Patient presents with Follow Up f/u labs SUBJECTIVE: Elyssa Ty is a 62-y.o. female who is here for follow up of diabetes and hypertension and dyslipidemia. She also has had increased redness right lower leg. She has history of cellulitis. She denies fever or chills. NO nausea. The patient is taking hypertensive medications compliantly without side effects. Denies chest pain,dyspnea, edema, or TIA's. No dizziness or palpitations. She has been taking her statin cholesterol medication regularly without side effects such as myalgias or upper abdominal pain, nausea or jaundice. She admits to poor diet and ofter forgets pm insulin. Her fingersticks vary but generally in upper 100's and 200's. She eats sporadically. She is due for eye exam. She sees Lisbet Lombardo but fails to call with fingersticks as requested. She continues with low iron and anemia. She had recent capsule endoscopy and showing some areas of prior bleeding. She does not tolerate the po iron. She recently stopped aspirin and ibuprofen. Patient Active Problem List Diagnosis Date Noted Diabetic polyneuropathy associated with type 2 diabetes mellitus (HCC) COPD (chronic obstructive pulmonary disease) ([facility]) 06/22/2013 Diagnosis [facility] May 2013 Lumbosacral spondylosis 02/19/2013 Herniated nucleus pulposus, L4-5 right 02/19/2013 Obstructive sleep apnea 08/17/2012 Positive sleep study 2003 allie Dyspnea on exertion 08/19/2011 S/p nuclear treadmill stress test [facility] 2004 negative Tubular adenoma of colon 10/19/2010 Nayak polypectomy 09/2010 Morbid obesity (HCC) 09/16/2010 bmi 46 11/18 This patient's BMI has been calculated and is above average, and BMI management plan is completed. General patient education discussion including: obesity- related excess mortality, weight loss link to reduction of risk factors for cardiac and other diseases, importance of long-term maintenance treatment in weight loss Microalbuminuria 07/07/2010 Type II diabetes mellitus with neurological manifestations (HCC) 2010 Hemoglobin A1C 11% Dr Ortiz 06/2010 A1C 9.5 Hyperlipidemia 02/16/2010 History of tobacco use 02/16/2010 50+ pack years, quit 2009 Uterine cancer (HCC) 02/16/2010 S/p ROGELIO/BSO and XRT 2009 [place], [place] Oncologist Dr Willie Meneses [place] Essential hypertension, benign 02/16/2010 Current Outpatient Medications Medication Sig albuterol HFA (VENTOLIN) 108 (90 Base) MCG/ACT Inhalation Aero Soln Take 2 Puffs by inhalation EVERY FOUR HOURS NEEDED (shortness of breath). atorvastatin (LIPITOR) 80 MG Oral Tab Take 1 Tab by mouth DAILY. benzonatate (TESSALON PERLES) 100 MG Oral Cap Take 1 Cap by mouth THREE TIMES DAILY NEEDEDfor cough. Blood Glucose Monitor Software Does not apply Device 1 Device by Does not apply route DIRECTED. Uncontrolled diabetes. Brand: Insurance preferred. Luke device. Test 5 times daily Calcium-Vitamin D (CALCIUM + D PO) Take 600 mg by mouth DAILY. cephalexin (KEFLEX) 500 MG Oral Cap Take 1 Cap by mouth THREE TIMES DAILY. CONTOUR NEXT TEST In Vitro Strip TEST BLOOD SUGAR 5 TIMES A DAY Docusate Sodium 100 MG Oral Tab Take 1 Tab by mouth DAILY. furosemide (LASIX) 40 MG Oral Tab take 1 tablet by mouth once daily gabapentin (NEURONTIN) 300 MG Oral Cap Take 2 Caps by mouth TWICE DAILY. HUMALOG KWIKPEN 200 UNIT/ML Subcutaneous Solution Pen-injector INJECT 30 UNITS SUBCUTANEOUSLYTHREE TIMES A DAY WITH MEALS Insulin Glargine (LANTUS SOLOSTAR) 100 UNIT/ML Subcutaneous Solution Pen- injector Inject 35-65 Units beneath the skin TWICE DAILY. 65 units in the am, 35 units in the pm metFORMIN (GLUCOPHAGE) 500 MG Oral Tab Take 1 Tab by mouth TWICE DAILY. NOVOFINE 32G X 6 MM Does not apply Misc use as directed twice a day nystatin-triamcinolone (MYCOLOG) 271186-0.1 UNIT/GM-% Apply externally Cream 1 Act by Topicalroute TWICE DAILY. pantoprazole (PROTONIX) 40 MG Oral Tab EC Take 1 Tab by mouth DAILY. Probiotic Product (PROBIOTIC DAILY PO) Take 1 Tab by mouth DAILY. ramipril (ALTACE) 10 MG Oral Cap Take 1 Cap by mouth DAILY. Spacer/Aero-Holding Chambers Does not apply Device 1 Device by Does not apply route DIRECTED. Use with MDI inhalers tiotropium (SPIRIVA) 18 MCG Inhalation Cap Take 1 INHL by inhalation DAILY. No current facility-administered medications for this visit. OBJECTIVE: BP 132/58 (BP Location: Right arm, Patient Position: Sitting) | Pulse 90 | Ht 5' 2" (1.575 m) | Wt 261 lb (118.4 kg) | SpO2 91% | BMI 47.74 kg/m She is alert and in no distress.Chest is clear, no wheezing or rales. Normal symmetric air entry throughout both lung castaneda. Heart RRR and no murmur. ABdomen obese, soft and nontender. Right lower lateral leg with erythema and warmth.No open or draining area. There are blisters forming. BP Readings from Last 3 Encounters: 11/16/18 132/58 10/19/18 137/72 08/31/18 118/70 Lab Results Component Value Date GLYCO 9.0 (H) 10/19/2018 GLYCO 9.1 (H) 07/06/2018 GLYCO 8.0 (H) 02/01/2018 Lab Results Component Value Date CHOL 175 10/19/2018 TRIG 242 (H) 10/19/2018 HDL 31 (L) 10/19/2018 LDL 96 10/19/2018 LDLHDLRATIO 3.1 10/19/2018 CHOLHDLRATIO 5.6 10/19/2018 Lab Results Component Value Date NA 140 10/19/2018 K 4.3 10/19/2018 CL 97 (L) 10/19/2018 CO2 33 (H) 10/19/2018 GLUCOSE 224 (H) 10/19/2018 BUN 19 (H) 10/19/2018 CREATININE 0.7 10/19/2018 CALCIUM 9.5 10/19/2018 TP 7.7 10/19/2018 ALBUMIN 4.2 10/19/2018 AST 22 10/19/2018 ALT 22 10/19/2018 ALK 124 10/19/2018 TBILI 0.5 10/19/2018 EGFR >60 10/19/2018 Ferritin 4.8, H&H 10.9/41.4, low MCV and MCH ASSESSMENT: ICD-9-CM ICD-10-CM 1. Cellulitis of right lower extremity 682.6 L03.115 cephalexin (KEFLEX) 500 MG Oral Cap 2. Type II diabetes mellitus with neurological manifestations (HCC) 250.60 E11.49 REFER TO OPHTHALMOLOGY GLYCOHEMOGLOBIN A1C 3. Mixed hyperlipidemia 272.2 E78.2 LIPID PROFILE 4. Essential hypertension, benign 401.1 I10 COMPREHENSIVE METABOLIC PANEL 5. Other iron deficiency anemia 280.8 D50.8 Patient Instructions Stop all aspirin and ibuprofen. Can take tylenol (acetaminophen) if needed for pain. Schedule appointment with Dr Hugo Try to work on a consistent schedule with meals and insulin Follow up in 3 months for lab work and then office visit See Dr. Chery for eye exam Take antibiotic for leg. Call or return to clinic prn if these symptoms worsen or fail to improve as anticipated. Author: ISREAL Armas 11/16/2018 14:10 documented in this encounter Plan of Treatment Date Type Specialty Care Team Description 12/19/2018 Office Visit Gastroenterology Lauren Hugo MD [address] [place] [address] [phone] 02/13/2019 Office Visit Family Practice Allison Gonzalez FNP [address] [place] [address] [phone] 02/15/2019 Office Visit Endocrinology Lisbet Lombardo FNP [address] [place] [address] Name Type Priority Associated Diagnoses Order Schedule GLYCOHEMOGLOBIN A1C Lab Routine Type II diabetes mellitus Expected: with neurological 11/16/2018 manifestations (HCC) (Approximate), Expires: 05/15/2019 COMPREHENSIVE METABOLIC Lab Routine Essential hypertension, Expected: PANEL benign 11/16/2018 (Approximate), Expires: 05/15/2019 LIPID PROFILE Lab Routine Mixed hyperlipidemia Expected: 11/16/2018 (Approximate), Expires: 05/15/2019 Name Type Priority Associated Diagnoses Order Schedule REFER TO OPHTHALMOLOGY Referral Routine Type II diabetes mellitus Expected: with neurological 11/16/2018, manifestations (HCC) Expires: 11/17/2019 Health Maintenance Due Date Last Done Comments ZOSTER IMMUNIZATION SERIES 2004 (1 of 2) LUNG CANCER SCREENING 01/28/2018 01/28/2017 INFLUENZA VACCINE (#1) 2018 11/23/2017, 10/20/2016, 10/18/2014, Additional history exists DEPRESSION SCREENING 01/06/2019 01/06/2018 HEMOGLOBIN A1C 01/18/2019 10/19/2018, 07/06/2018, 02/01/2018, Additional history exists MAMMOGRAM (SCREENING) 03/02/2019 03/02/2018, 10/29/2015, 03/14/2014, Additional history exists Diabetic Eye Exam 07/30/2019 07/29/2017 FOOT EXAM 09/01/2019 08/31/2018, 08/31/2018, 08/31/2018, Additional history exists LIPID DISORDER SCREENING 10/20/2019 10/19/2018, 07/06/2018, 07/06/2018, Additional history exists COLONOSCOPY SCREENING 03/14/2028 03/14/2018, 03/14/2018, 09/07/2016, Additional history exists HEPATITIS C SCREENING Completed 05/15/2013, 11/29/2012 PNEUMOCOCCAL 0-64 YRS Completed 01/06/2018, 07/10/2015, 10/13/2009 HPV IMMUNIZATION SERIES Aged Out No longer eligible based on patient's age to complete this topic MENINGOCOCCAL VACCINE IMM Aged Out No longer eligible based on patient's age to complete this topic documented as of this encounter Goals Goal Patient Goal Associated Recent Patient-Stated? Author Type Problems Progress Blood Pressure Blood Pressure 132/58 No [place], < 140/90 (11/16/2018 Yong Amado, 1:10 PM EDT) Note: Hypertension Care Plan Based on the patient's clinical history and according to JNC 8 guidelines target blood pressure goal is less than 140/90. Based on the patient's last blood pressure of BP: 142/78 mmHg the patient is at above goal. As your provider, it is important that I advise you regarding: your current medications and help you with any challenges you may face taking your medications as directed (ex. instructions, cost, side effects, and interactions). lifestyle changes: exercise, weight reduction and medication compliance your clinical goals and how you can achieve success: weight reduction, exercise plan and diet improvements medication management: N/A diet only patient education/self-management tools provided: Yes To successfully manage my Hypertension I will: monitor my blood pressure daily, understanding that my goal is less than 140/ 90 per my healthcare provider's recommendation. I will schedule an appointment with my provider if consistent abnormal readings greater than 160/100. take medications every day as prescribed by my healthcare provider and if unable to take them I will discuss with my provider. monitor for symptoms of chest pain, chest tightness/pressure, irregular heartbeat, persistent dizziness, radiating arm pain, and neck or jaw pain. If any of these symptoms are noticed I will seek medical attention immediately by calling 911 exercise/walk 30 minutes 5 day(s) per week. If I experience chest pain, chest tightness, or shortness of breath, I will seek medical attention immediately. follow a diet rich in fruits, vegetables, and low-fat dairy products with reduced content of saturated & total fat. I will reduce my sodium intake daily. An example is the DASH diet. To obtain more information please refer to the DASH Eating Plan listed in Educational Resources. record my blood pressure results. [employer] is safe and secure way for you to do this in your medical record online. try to obtain an ideal body weight. My recent weight was Weight: 276 lb ( 125.193 kg). My weight loss goal for my next office visit is 265 pounds . limit alcohol consumption. For men two drinks per day and women one drink per day. if currently smoking, will discuss how to quit smoking with my healthcare provider and work towards quitting. Educational Resources: National Heart, Lung, & Blood [place] http://nhlbi.nih.gov/hbp/index.html The DASH Diet Eating Plan http://www.nhlbi.nih.gov/health/health-topics/ topics/dash/ Academy of Nutrition & DIetetics http://eatright.org National Smoking Cessation Site http://smokefree.gov Blood Pressure Blood Pressure Essential 132/58 (11/16/2018 No [place], < 140/90 hypertension, benign 1:10 PM EDT) Yong Amado MD Note: Hypertension Care Plan Based on the patient's clinical history and according to JNC 8 guidelines target blood pressure goal is less than 140/90. Based on the patient's last blood pressure of BP: 132/80 mmHg the patient is at at goal. As your provider, it is important that I advise you regarding: your current medications and help you with any challenges you may face taking your medications as directed (ex. instructions, cost, side effects, and interactions). Important lifestyle changes: exercise, weight reduction, dietary sodium reduction and moderation of alcohol consumption your clinical goals and how you can achieve success: weight reduction, exercise plan and diet improvements medication management: N/A diet only patient education/self-management tools provided: Current self-management tools adequate To successfully manage my Hypertension I will: monitor my blood pressure daily, understanding that my goal is less than 140/ 90 per my healthcare provider's recommendation. I will schedule an appointment with my provider if consistent abnormal readings greater than 160/100. take medications every day as prescribed by my healthcare provider and if unable to take them I will discuss with my provider. monitor for symptoms of chest pain, chest tightness/pressure, irregular heartbeat, persistent dizziness, radiating arm pain, and neck or jaw pain. If any of these symptoms are noticed I will seek medical attention immediately by calling 911 exercise/walk 15 minutes 6 day(s) per week. If I experience chest pain, chest tightness, or shortness of breath, I will seek medical attention immediately. follow a diet rich in fruits, vegetables, and low-fat dairy products with reduced content of saturated & total fat. I will reduce my sodium intake daily. An example is the DASH diet. To obtain more information please refer to the DASH Eating Plan listed in Educational Resources. record my blood pressure results. [employer] is safe and secure way for you to do this in your medical record online. try to obtain an ideal body weight. My recent weight was Weight: 285 lb ( 129.275 kg). My weight loss goal for my next office visit is 270 pounds . limit alcohol consumption. For men two drinks per day and women one drink per day. if currently smoking, will discuss how to quit smoking with my healthcare provider and work towards quitting. Educational Resources: National Heart, Lung, & Blood [place] http://nhlbi.nih.gov/hbp/index.html The DASH Diet Eating Plan http://www.nhlbi.nih.gov/health/health-topics/ topics/dash/ Academy of Nutrition & DIetetics http://eatright.org National Smoking Cessation Site http://smokefree.gov Blood Pressure < Blood Pressure 132/58 (11/16/2018 No Allison Gonzalez FNP 140/90 1:10 PM EDT) Note: This is an individualized treatment (blood pressure) goal for Elyssa Ty: Displayed above (on the left) is your goal for blood pressure control. Your most recent blood pressure is also shown above, on the right. You should try to achieve blood pressures that are lower than your goal listed above (on the left). Smoking Cessation COPD No Allison Gonzalez FNP Note: This is an individualized treatment (COPD) goal for Elyssa Ty: Quit smoking immediately! Your provider has information and resources that may help you to quit. Glycohemoglobin A1c < 7.0 Diabetes 9.0 (10/19/2018 12:17 No Allison Gonzalez FNP PM EDT) Note: This is an individualized treatment (diabetes control, HgbA1C) goal for Elyssa Ty: Displayed above is your progress towards your HgbA1C goal. Your goal is shown above (on the left); your most recent HgbA1C is shown on the right. Note that lower numbers are better. Weight loss vs. 18 mo Lifestyle 8.6 (11/16/2018 1:10 PM No Allison Gonzalez FNP max (lbs) >= 10 EDT) Note: This is an individualized lifestyle goal for Elyssa Ty: Your body mass index (BMI) is more than 30. You should lose weight. A reasonable starting goal is to lose 10 pounds. Displayed above is how many pounds you have lost thus far towards your 10 pound weight loss goal. Keep immunizations current Lifestyle No Allison Gonzalez FNP Note: This is an individualized lifestyle goal for Elyssa Ty: Please be sure to keep up-to-date on recommended immunizations. For example, this would include a yearly influenza vaccine. Immunization status can be seen by looking at the Health Maintenance sections of your [employer], Plan of Care, and any After Visit Summaries. Take all prescribed medications as Self-management No Allison Gonzalez FNP directed Note: This is an individualized self-management goal for Elyssa Ty: Please take all prescribed medications as directed. 1. Do not skip doses. If you cannot afford your medications, talk with your doctor. 2. Use a pill reminder system such as a pill box if needed. Your pharmacist can help you with this. 3. Contact your Pharmacy 5 days before your medication runs out. If you cannot take your medications for any reasons, talk with your doctor. 4. Please bring all of your medication bottles and inhalers (or a list of all your medications/inhalers) with you to every visit. Potential barriers to meeting all of your care plan goals will continue to be addressed on an ongoing basis. documented as of this encounter Implants Implanted Type Area Furniture And Bedding Inspector Device Shelf Model / Identifier Expiration Date Serial / Lot [employer] 11/12/2020 [id number] / Implanted: Qty: 1 on 03/14/2018 by Pete Andersen MD at [facility] / [id number] Description:1 boston resolution clip to gastric antrum polypectomy site documented as of this encounter Results Not on filedocumented in this encounter Visit Diagnoses Diagnosis Cellulitis of right lower extremity - Primary Cellulitis and abscess of leg, except foot Type II diabetes mellitus with neurological manifestations (HCC) Type II or unspecified type diabetes mellitus with neurological manifestations , not stated as uncontrolled Mixed hyperlipidemia Essential hypertension, benign Other iron deficiency anemia documented in this encounter Guarantor Name Account Type Relation to Date of Phone Billing Patient Address Elyssa Ty Personal/Family 1955 [address] [phone] [place], [place] (Work) [id number] documented as of this encounter
--- OUTSIDE RECORDS SUMMARY | 2018-12-23 13:29 | XMS REPORT | Continuity of Care Document ---
:1955 External Reference #:[id number] Author Name Olga Leigh O.D. Address [address] [place] [address] Care Team Providers Name Role Phone Yong Crocker M.D. - Family Medicine Care Team Information Fur Blender Allison Gonzalez-C - Family Care Team Information Fur Blender Problems Active Problems Provider Date Type 2 [...] Date Provider Calcium 1000 + D Unknown [id number] Tablets Fish Oil 1 by mouth every [...] Apply Topically bid Unknown ne Acetonide Utd 420223-3.1Unit/GM-% Cream Spiriva Handihaler Unknown 18mcg Capsules Ventolin [...] your scheduled appointment, please call [facility] at [phone].H52.03 Hypermetropia, bilateralComments:You have Hyperopia, or far sightednessFollow up:NEXT AVAILABLE MANIFEST ONLY IF [id number] Regular astigmatism, bilateralComments:Astigmatism is a common vision [...]
[2018-12-23 15:41] VITALS: BP 167/75
[2018-12-23 16:22] LABS: ABS Basophils 0.1 10^3/ul (0-0.2); ABS Eosinophils 0.2 10^3/ul (0-0.6); ABS Monocytes 0.6 10^3/ul (0-0.8); ABS Neutrophils 6.6 10^3/ul (1.5-7.7); Hematocrit 37 % (35-47); Hemoglobin 11.3 g/dL (12.0-16.0); Lymphocyte % 21.2 %; Mean Corpuscular HGB Conc 31 g/dL (31-36); Mean Corpuscular Hemoglobin 20 pg (27-31); Mean Corpuscular Volume 66 fL (80-97); Mean Platelet Volume 9.3 fL (7.4-10.4); Nucleated Red Blood Cells % 0.1; Platelet Count 267 10^3/uL (150-450); Red Cell Distribution Width 22 % (10-15); White Blood Count 9.5 10^3/uL (3.5-10.8)
[2018-12-23 16:30] LABS: Albumin 3.9 g/dL (3.2-5.2); Albumin/Globulin Ratio 1.2 (1-3); BUN/Creatinine Ratio 25.7 (8-20); C Reactive Protein 18.78 mg/L (<8.01); Calcium 9.4 mg/dL (8.6-10.3); EGFR African American 95.6 (>60); Globulin 3.3 g/dL (2-4); Total Bilirubin 0.4 mg/dL (0.2-1.0); Total Protein 7.2 g/dL (6.4-8.9)
--- NOTE | 2018-12-23 16:55 | ED ---
Lower Extremity - HPI Summary HPI Summary: This patient is a 63-year-old female with history of diabetes and COPD presenting to the ED with concern for bilateral lower extremity cellulitis. Patient states she has had this in the past, but does not recall if she was given antibiotics. She has never been diagnosed with any type of venous insufficiency. Patient is endorsing erythematous bilateral lower extremities from the ankles up to the mid lower extremity. She is endorsing slight swelling to this area and warmth. She states she has not been ambulating as well due to sciatic pain to her left side. She states she typically ambulates more and she also uses her compression machine at home. She denies history of DVT or PE. She denies any chest pain or shortness of breath. She denies any other concern on this date. Denies bilateral lower extremity notes or tingling and/or weakness. No bladder or bowel dysfunction. - History of Current Complaint Chief Complaint: EDExtremityLower Stated Complaint: POSSIBILE INFECTION IN BOTH LEGS Time Seen by Provider: 12/23/18 15:09 Hx Obtained From: Patient Pain Intensity: 3 Character Of Pain: Aching Associated Signs And Symptoms: Positive: Swelling, Redness. Negative: Bruising , Weakness, Dizziness, Abdominal Pain, Knee Pain Aggravating Factor(s): Standing, Ambulation Alleviating Factor(s): Rest Able to Bear Weight: Yes - Allergies/Home Medications Allergies/Adverse Reactions: Allergies Allergy/AdvReac Type Severity Reaction Status Date / Time No Known Allergies Allergy Verified 12/23/18 13:22 PMH/Surg Hx/FS Hx/Imm Hx Previously Healthy: Yes Endocrine/Hematology History: Reports: Hx Diabetes Denies: Hx Systemic Lupus Erythematosus, Hx Thyroid Disease Cardiovascular History: Reports: Hx Hypercholesterolemia, Hx Hypertension, Other Cardiovascular Problems/Disorders - afib Denies: Hx Congestive Heart Failure Respiratory History: Reports: Hx Chronic Obstructive Pulmonary Disease (COPD), Hx Pneumonia, Hx Sleep Apnea, Other Respiratory Problems/Disorders - RESPIRATORY FAILURE (per admission hx) GI History: Reports: Hx Gall Bladder Disease - removed, Other GI Disorders - umbilical hernia, constipation History: Reports: Other Problems/Disorders - per admission Hx - UTIs Denies: Hx Dialysis, Hx Renal Disease Musculoskeletal History: Reports: Hx Arthritis, Hx Back Problems - pain, Other Musculoskeletal History - sciatica, back pain Denies: Hx Rheumatoid Arthritis Sensory History: Reports: Hx Contacts or Glasses Denies: Hx Cataracts, Hx Hearing Aid Opthamlomology History: Reports: Hx Contacts or Glasses Denies: Hx Cataracts Neurological History: Reports: Other Neuro Impairments/Disorders - neuropathy Psychiatric History: Reports: Hx Anxiety - active - Cancer History Cancer Type, Location and Year: Uterine CA Hx Chemotherapy: No Hx Radiation Therapy: Yes - Surgical History Surgery Procedure, Year, and Place: humerus repair . hysterectomy 2010 d/ t uterine cx. cholecystectomy when in her 40s. c/s. tonsilectomy Hx Anesthesia Reactions: No - Immunization History Hx Pertussis Vaccination: No Immunizations Up to Date: Yes Infectious Disease History: No Infectious Disease History: Denies: Hx of Known/Suspected MRSA, History Other Infectious Disease, Traveled Outside the [place] in Last 30 Days - Family History Known Family History: Positive: None, Cardiac Disease - coronary artery disease , CHF, [place] Negative: Blood Disorder Family History: R & n/C - Social History Occupation: Unemployed Lives: Alone Alcohol Use: None Hx Substance Use: No Substance Use Type: Reports: Marijuana Substance Use Comment - Amount & Last Used: occasionally eats pot brownies Hx Tobacco Use: Yes - 50 pack year history Smoking Status (MU): Former Smoker Type: Cigarettes Amount Used/How Often: 1 ppd + Length of Time of Smoking/Using Tobacco: 40 years Have You Smoked in the Last Year: No Review of Systems Negative: Fever, Chills, Fatigue, Skin Diaphoresis Negative: Palpitations, Chest Pain Negative: Shortness Of Breath, Cough Genitourinary: Negative Positive: no symptoms reported, see HPI Negative: Arthralgia, Myalgia Positive: Other - warmth to the lower extremities Negative: Headache, Weakness, Paresthesia, Numbness Psychological: Normal All Other Systems Reviewed And Are Negative: Yes Physical Exam Triage Information Reviewed: Yes Vital Signs On Initial Exam: Initial Vitals Temp Pulse Resp BP Pulse Ox 98.5 F 72 20 135/79 91 12/23/18 13:18 12/23/18 13:18 12/23/18 13:18 12/23/18 13:18 12/23/18 13:18 Vital Signs Reviewed: Yes Appearance: Positive: Well-Appearing, Well-Nourished Skin: Positive: Warm, Skin Color Reflects Adequate Perfusion, Other - dark, hardened, leathery, erythematous area with warmth to mid calf to just above the ankle joint. She endorses cramping to this area, pain and heaviness without pain to the calf. Pain is most notably to the dorsal side. She does endorse mild itching. Procedures - Sedation Patient Received Moderate/Deep Sedation with Procedure: No Diagnostics - Vital Signs Vital Signs Temp Pulse Resp BP Pulse Ox 12/23/18 16:00 75 96 12/23/18 15:33 76 167/75 91 12/23/18 13:18 98.5 F 72 20 135/79 91 - Laboratory Lab Results: Lab Results 12/23/18 12/23/18 Range/Units 15:56 15:56 WBC 9.5 (3.5-10.8) 10^3/uL RBC 5.60 H (3.70-4.87) 10^6 /uL Hgb 11.3 L (12.0-16.0) g/dL Hct 37 (35-47) % MCV 66 L (80-97) fL MCH 20 L (27-31) pg MCHC 31 (31-36) g/dL RDW 22 H (10-15) % Plt Count 267 (150-450) 10^3/uL MPV 9.3 (7.4-10.4) fL Neut % (Auto) 69.1 % Lymph % (Auto) 21.2 % [place] % (Auto) 6.8 % Eos % (Auto) 2.0 % Baso % (Auto) 0.9 % Absolute Neuts (auto) 6.6 (1.5-7.7) 10^3/ul Absolute Lymphs (auto) 2.0 (1.0-4.8) 10^3/ul Absolute Monos (auto) 0.6 (0-0.8) 10^3/ul Absolute Eos (auto) 0.2 (0-0.6) 10^3/ul Absolute Basos (auto) 0.1 (0-0.2) 10^3/ul Absolute Nucleated RBC 0.0 10^3/ul Nucleated RBC % 0.1 Sodium 140 (135-145) mmol/L Potassium 4.0 (3.5-5.0) mmol/L Chloride 100 L (101-111) mmol/L Carbon Dioxide 37 H (22-32) mmol/L Anion Gap 3 (2-11) mmol/L BUN 19 (6-24) mg/dL Creatinine 0.74 (0.51-0.95) mg/dL Est GFR ( Amer) 95.6 (>60) Est GFR (Non-Af Amer) 79.0 (>60) BUN/Creatinine Ratio 25.7 H (8-20) Glucose 142 H (70-100) mg/dL Calcium 9.4 (8.6-10.3) mg/dL Total Bilirubin 0.40 (0.2-1.0) mg/dL AST 13 (13-39) U/L ALT 17 (7-52) U/L Alkaline Phosphatase 123 H (34-104) U/L C-Reactive Protein 18.78 H (<8.01) mg/L Total Protein 7.2 (6.4-8.9) g/dL Albumin 3.9 (3.2-5.2) g/dL Globulin 3.3 (2-4) g/dL Albumin/Globulin Ratio 1.2 (1-3) Result Diagrams: 12/23/18 15:56 12/23/18 15:56 Lab Statement: Any lab studies that have been ordered have been reviewed, and results considered in the medical decision making process. Lower Extremity Course/Dx - Course Course Of Treatment: Patient is evaluated for bilateral lower extremity erythema and warmth. On physical examination, there is erythema, warmth with leathery feeling to the legs resembling a venous stasis/insufficiency. Patient has never been diagnosed with this in the past. She does see a production stage manager regularly as well as her PCP. History of diabetes, however this is controlled with medications. Labs were obtained to assess for a possible cellulitic component. Labs show a normal white count with only a slightly elevated CRP. Patient has been afebrile and symptoms have been present 2-3 weeks. For this reason there does not appear to be a cellulitis and falls. She is diagnosed with venous insufficiency, however she is unable to take aspirin due to " stomach problems." She is encouraged more ambulation, movement with her legs, compression machine and to use compression hose when possible. She will elevate also when possible. She denies any other concerns today and will follow up with PCP. - Diagnoses Differential Diagnosis/HQI/PQRI: Positive: Cellulitis, Infection Provider Diagnoses: Venous insufficiency of both lower extremities Discharge ED - Sign-Out/Discharge Documenting (check all that apply): Patient Departure - Discharge Plan Condition: Stable Disposition: HOME Patient Education Materials: Stasis Dermatitis (ED), Venous Insufficiency (DC) Referrals: Yong Crocker MD [Primary Care Provider] - Additional Instructions: Please follow up with your PCP as soon as possible Keep the legs elevated when possible Keep ambulating and use your compression machine - Billing Disposition and Condition Condition: STABLE Disposition: Home
== END 2018-12-23 17:10 | disposition home or self-care (01) ==
LOC: ED 13:06
DX: I87.2 Venous insufficiency (chronic) (peripheral) (principal); R60.0 Localized edema; E11.9 Type 2 diabetes mellitus without complications; I10 Essential (primary) hypertension; J44.9 Chronic obstructive pulmonary disease, unspecified; Z87.891 Personal history of nicotine dependence
CPT/HCPCS: 36415; 80053; 85025; 86140; 99283

== ENCOUNTER 2018-12-29 19:16 | Observation (INO) | payer OTHER ==
[2018-12-29 23:13] LABS: INR 1.09 (0.82-1.09)
[2018-12-29 23:14] LABS: ABS Basophils 0.1 10^3/ul (0-0.2); ABS Eosinophils 0.3 10^3/ul (0-0.6); ABS Lymphocytes 2.1 10^3/ul (1.0-4.8); ABS Monocytes 0.7 10^3/ul (0-0.8); ABS Neutrophils 7.7 10^3/ul (1.5-7.7); Eosinophil % 2.8 %; Hematocrit 37 % (35-47); Hemoglobin 11.5 g/dL (12.0-16.0); Lymphocyte % 19.3 %; Mean Corpuscular HGB Conc 31 g/dL (31-36); Mean Corpuscular Hemoglobin 20 pg (27-31); Mean Corpuscular Volume 66 fL (80-97); Platelet Count 286 10^3/uL (150-450); Red Blood Count 5.64 10^6 /uL (3.70-4.87); Red Cell Distribution Width 22 % (10-15); White Blood Count 11.1 10^3/uL (3.5-10.8)
[2018-12-29 23:36] LABS: Albumin/Globulin Ratio 1.1 (1-3); BUN/Creatinine Ratio 18.2 (8-20); Calcium 9.5 mg/dL (8.6-10.3); EGFR African American 109.1 (>60); EGFR Non-African American 90.2 (>60); Globulin 3.6 g/dL (2-4); Potassium 3.7 mmol/L (3.5-5.0); Total Bilirubin 0.5 mg/dL (0.2-1.0); Total Protein 7.6 g/dL (6.4-8.9)
[2018-12-29 23:38] LABS: Troponin I 0.01 ng/mL (<0.03)
--- NOTE | 2018-12-30 00:10 | ED ---
HPI Chest Pain - HPI Summary HPI Summary: Patient complains of left side lower chest/left upper abdomen pain radiating to upper back 3 starting at 7 PM today. All episodes Lasted for seconds, described as an ache. Symptoms resolved prior to arrival. Also complains of productive cough and exertional SOB 2 days. Increased chronic edema in bilateral lower extremities. Denies fever, sore throat, N/V/D, change in urine , change in BM, vaginal symptoms. Patient on diuretic. Medical history COPD, DM, HLD, CAD, HTN. Patient is on home O2 when necessary, usually at night. - History of Current Complaint Chief Complaint: EDChestPainROMI Time Seen by Provider: 12/30/18 00:06 Hx Obtained From: Patient Onset/Duration: Started Hours Ago Timing: Intermittent, Lasting Seconds Initial Severity: Moderate Current Severity: Moderate Pain Intensity: 5 Pain Scale Used: 0-10 Numeric Chest Pain Location: Left Lateral Chest Pain Radiates To:: Back Character: Cough, Productive Aggravating Factor(s): Exertion Alleviating Factor(s): Rest Associated Signs and Symptoms: Positive: Chest Pain, Shortness of Breath, Swelling - Additional Pertinent History Primary Care Physician: [id number] - Allergy/Home Medications Allergies/Adverse Reactions: Allergies Allergy/AdvReac Type Severity Reaction Status Date / Time No Known Allergies Allergy Verified 12/29/18 19:37 PMH/Surg Hx/FS Hx/Imm Hx Endocrine/Hematology History: Reports: Hx Diabetes Denies: Hx Systemic Lupus Erythematosus, Hx Thyroid Disease Cardiovascular History: Reports: Hx Hypercholesterolemia, Hx Hypertension, Other Cardiovascular Problems/Disorders - afib Denies: Hx Congestive Heart Failure Respiratory History: Reports: Hx Chronic Obstructive Pulmonary Disease (COPD), Hx Pneumonia, Hx Sleep Apnea, Other Respiratory Problems/Disorders - RESPIRATORY FAILURE (per admission hx) GI History: Reports: Hx Gall Bladder Disease - removed, Other GI Disorders - umbilical hernia, constipation History: Reports: Other Problems/Disorders - per admission Hx - UTIs Denies: Hx Dialysis, Hx Renal Disease Musculoskeletal History: Reports: Hx Arthritis, Hx Back Problems - pain, Other Musculoskeletal History - sciatica, back pain Denies: Hx Rheumatoid Arthritis Sensory History: Reports: Hx Contacts or Glasses Denies: Hx Cataracts, Hx Hearing Aid Opthamlomology History: Reports: Hx Contacts or Glasses Denies: Hx Cataracts Neurological History: Reports: Other Neuro Impairments/Disorders - neuropathy Psychiatric History: Reports: Hx Anxiety - active - Cancer History Cancer Type, Location and Year: Uterine CA Hx Chemotherapy: No Hx Radiation Therapy: Yes - Surgical History Surgery Procedure, Year, and Place: humerus repair . hysterectomy 2010 d/ t uterine cx. cholecystectomy when in her 40s. c/s. tonsilectomy Hx Anesthesia Reactions: No Infectious Disease History: No Infectious Disease History: Denies: Hx of Known/Suspected MRSA, History Other Infectious Disease, Traveled Outside the [place] in Last 30 Days - Family History Known Family History: Positive: None, Cardiac Disease - coronary artery disease , CHF, [place] Negative: Blood Disorder Family History: R & n/C - Social History Alcohol Use: None Hx Substance Use: No Substance Use Type: Reports: Marijuana Substance Use Comment - Amount & Last Used: occasionally eats pot brownies Hx Tobacco Use: Yes - 50 pack year history Smoking Status (MU): Former Smoker Type: Cigarettes Amount Used/How Often: 1 ppd + Length of Time of Smoking/Using Tobacco: 40 years Have You Smoked in the Last Year: No Review of Systems Constitutional: Negative Eyes: Negative ENT: Negative Positive: Chest Pain Positive: Shortness Of Breath, Cough Gastrointestinal: Negative Genitourinary: Negative Musculoskeletal: Negative Skin: Other Neurological: Negative Psychological: Normal All Other Systems Reviewed And Are Negative: Yes Physical Exam - Summary Physical Exam Summary: Pitting edema to bilateral lower extremities with evidence of venous stasis. Regular rate and rhythm. Calves soft nontender, biaterally. Lung sounds clear to auscultation bilaterally. Regular rate and rhythm. Abdomen soft nontender. No pain with palpation of chest wall. Triage Information Reviewed: Yes Vital Signs On Initial Exam: Initial Vitals Temp Pulse Resp BP Pulse Ox 98.2 F 80 16 142/68 93 12/29/18 19:30 12/29/18 19:30 12/29/18 19:30 12/29/18 19:30 12/29/18 19:30 Vital Signs Reviewed: Yes Appearance: Positive: Well-Appearing Skin: Positive: Warm Head/Face: Positive: Normal Head/Face Inspection Eyes: Positive: Normal Neck: Positive: Supple Respiratory/Lung Sounds: Positive: Clear to Auscultation Cardiovascular: Positive: Normal Abdomen Description: Positive: Nontender Musculoskeletal: Positive: Normal Neurological: Positive: Normal Psychiatric: Positive: Normal AVPU Assessment: Alert - Juhi Coma Scale Best Eye Response: 4 - Spontaneous Best Motor Response: 6 - Obeys Commands Best Verbal Response: 5 - Oriented Coma Scale Total: 15 Procedures - Sedation Patient Received Moderate/Deep Sedation with Procedure: No Diagnostics - Vital Signs Vital Signs Temp Pulse Resp BP Pulse Ox 12/29/18 21:25 98.0 F 84 20 186/95 92 12/29/18 19:30 98.2 F 80 16 142/68 93 - Laboratory Lab Results: Lab Results 12/29/18 12/29/18 12/29/18 Range/Units 22:59 22:59 22:59 WBC 11.1 H (3.5-10.8) 10^3/uL RBC 5.64 H (3.70-4.87) 10^6 /uL Hgb 11.5 L (12.0-16.0) g/dL Hct 37 (35-47) % MCV 66 L (80-97) fL MCH 20 L (27-31) pg MCHC 31 (31-36) g/dL RDW 22 H (10-15) % Plt Count 286 (150-450) 10^3/uL MPV 9.0 (7.4-10.4) fL Neut % (Auto) 70.0 % Lymph % (Auto) 19.3 % [place] % (Auto) 6.6 % Eos % (Auto) 2.8 % Baso % (Auto) 1.3 % Absolute Neuts (auto) 7.7 (1.5-7.7) 10^3/ul Absolute Lymphs (auto) 2.1 (1.0-4.8) 10^3/ul Absolute Monos (auto) 0.7 (0-0.8) 10^3/ul Absolute Eos (auto) 0.3 (0-0.6) 10^3/ul Absolute Basos (auto) 0.1 (0-0.2) 10^3/ul Absolute Nucleated RBC 0.0 10^3/ul Nucleated RBC % 0.0 INR (Anticoag Therapy) 1.09 (0.82-1.09) Sodium 139 (135-145) mmol/L Potassium 3.7 (3.5-5.0) mmol/L Chloride 100 L (101-111) mmol/L Carbon Dioxide 32 (22-32) mmol/L Anion Gap 7 (2-11) mmol/L BUN 12 (6-24) mg/dL Creatinine 0.66 (0.51-0.95) mg/dL Est GFR ( Amer) 109.1 (>60) Est GFR (Non-Af Amer) 90.2 (>60) BUN/Creatinine Ratio 18.2 (8-20) Glucose 144 H (70-100) mg/dL Calcium 9.5 (8.6-10.3) mg/dL Total Bilirubin 0.50 (0.2-1.0) mg/dL AST 14 (13-39) U/L ALT 18 (7-52) U/L Alkaline Phosphatase 128 H (34-104) U/L Troponin I 0.01 (<0.03) ng/mL Total Protein 7.6 (6.4-8.9) g/dL Albumin 4.0 (3.2-5.2) g/dL Globulin 3.6 (2-4) g/dL Albumin/Globulin Ratio 1.1 (1-3) Result Diagrams: 12/29/18 22:59 12/29/18 22:59 Lab Statement: Any lab studies that have been ordered have been reviewed, and results considered in the medical decision making process. Chest Pain Course/Dx - Course Course Of Treatment: Patient complains of left side lower chest/left upper abdomen pain radiating to upper back 3 starting at 7 PM today. All episodes Lasted for seconds, described as an ache. Symptoms resolved prior to arrival. Also complains of productive cough and exertional SOB 2 days. Increased chronic edema in bilateral lower extremities. Denies fever, sore throat, N/V/D , change in urine, change in BM, vaginal symptoms. Patient on diuretic. Medical history COPD, DM, HLD, CAD, HTN. Patient is on home O2 when necessary, usually at night. O2 sats dropped to 82% when off oxygen. Elevated BP 186/95. History of anxiety 5. Chest x-ray insistent with CHF. Labs otherwise unremarkable. UA suggests UTI. Cultures pending. Patient admitted to hospitalist for CHF. - Diagnoses Provider Diagnoses: CHF (congestive heart failure) Discharge ED - Sign-Out/Discharge Documenting (check all that apply): Patient Departure - Discharge Plan Condition: Stable Disposition: ADMITTED TO [facility] - Billing Disposition and Condition Condition: STABLE Disposition: Admitted to [facility]
[2018-12-30] MEDS ORDERED: methylPREDNISolone 125 MG* 2 ML VIAL IV ONE (01:00)
[2018-12-30] MEDS ORDERED: Albuterol/Ipratropium NEB.SOL* Albuterol 2.5 MG/Ipratropium 0.5 MG 3 ML INH ONE (01:00)
[2018-12-30] MEDS ORDERED: Furosemide IV* 10 MG/ML VIAL (40 MG) IV ONE (01:05)
[2018-12-30 01:26] LABS: Urine Appearance Cloudy; Urine Bilirubin Negative (Negative); Urine Blood 1+ (Negative); Urine Color Yellow; Urine Glucose Negative (Negative); Urine Ketones Negative (Negative); Urine Nitrite Negative (Negative); Urine Protein 1+(30 mg/dL) (Negative); Urine Specific Gravity 1.009 (1.010-1.030); Urine Urobilinogen Positive (Negative)
[2018-12-30 01:51] LABS: Urine Bacteria 3+ (Absent); Urine Red Blood Cell 3+(>10/hpf) (Absent); Urine Squamous Epithelial Cell Present (Absent); Urine White Blood Cell 3+(>20/hpf) (Absent)
[2018-12-30] MEDS ORDERED: Albuterol HFA INHALER* 8 gm MDI INH PRN (05:42)
[2018-12-30] MEDS ORDERED: Dextrose 50% VIAL 50 ml IV PUSH PRN (08:21)
--- NOTE | 2018-12-30 08:59 | HP ---
History of Present Illness - History of Present Illness Reason for Visit: chest pain History of Present Illness: 63 yo female with hx of cardiomyopathy, COPD, ELIZABETH, who presented to the ER [facility] complaints of chest pain, abdominal pain and shoulder pain. She experienced those pain while walking, it was fleeting in nature. She came to the ER concerned she was having a cardiac event. In the ER, she was saturating in the 80s and put on oxygen. She said she has oxygen at home but was prescribed to only wear it at night. Her XR showed pulmonary edema. She was given lasix IV in the ED. - Past Medical History Cardiac: CAD, Hyperlipidemia Pulmonary: COPD Review of Systems - Measurements Intake and Output: Intake and Output Last 24 Hours 12/28/18 12/29/18 12/30/18 12/31/18 06:59 06:59 06:59 06:59 Intake Total 80 Output Total 500 Balance -420 Weight 265 lb Intake: IV Fluids 20 Oral 60 Output: Urine 500 - Review of Systems Constitutional Symptoms: Positive: Weight Gain Negative: Weight Loss, Weakness, Fatigue, Fever, Night Sweats, Unexplained Falls, Other Dermatology: Negative: Normal, Rash, Skin Lesions, Cancer, Skin Lumps, Other HEENT: Negative: Normal, Change in Hearing, Vertigo, Dental Problems, Tinnitus, Sinus Problem, Other Eyes: Negative: Normal, Change in Vision, Double Vision, Eye Pain, Glaucoma, Cataract, Contacts or Glasses, Other Thyroid: Negative: Normal, Goiter, Thyroid Nodule, Cold Intolerance, Heat Intolerance , Sweatiness, Tremor, Frequent Defecation, Constipation, Palpitations, Primary Hypothyroidism, Primary Hyperthyroidism, Weight Loss, Weight Gain, Change in Skin/Hair, Change in Menstruation, Radiation Exposure, Other Pulmonary: Positive: Shortness of Breath Cardiology: Positive: Chest Pain, Shortness of Breath Gastroenterology: Negative: Normal, Abdominal Pain, Nausea, Vomiting, Anorexia, Indigestion, Difficulty Swallowing, Heartburn, Constipation, Diarrhea, Blood in Stools, Change in Bowel Habits, Haematemesis, Melena, Other Genital - Urinary: Negative: Normal, Dysuria, Hematuria, Polyuria, Nocturia, Other Musculoskeletal: Negative: Joint Pain, Joint Stiffness, Arthritis, Osteoporosis, Low Back Pain , Sciatica, Joint Deformities, Kyphoscoliosis, Other Endocrinology: Negative: Normal, Thyroid Problems, Adrenal Problems, Gonadal Problems, Family Hx Endocrine Disorders, Obesity, Diabetes Mellitus, Hyperglycemia, Hx Hypoglycemia, Diabetic Foot Ulcers, Calluses, Hirsutism, Menstrual Abnormalities , Polydipsia, Polyuria, Gonadal Problems, Gynecomastia, Pituitary disease, Other Neurology: Negative: Normal, Headache, Migraines, Change in Vision, Diplopia, Dizziness , Change in Balancing, Change in Coordination, Change in Memory, Change in Speech, Change in Sphincter Function, Change in Walking, Numbness\Paresthesiae, Unexplained Weakness, Hx of Stroke\TIA, Hx of Seizures, Other Psychiatry: Negative: Normal, Depression, Anxiety, Depressed Mood, Anhedonia, Sexual Dysfunction, Weight Change, Guilt Feelings, Tearfulness, Unusual Fatigue, Unusual Anxiety, Suicidal Ideation, Hypomania, Eating Disorders, Other Objective Active Medications: Albuterol (Ventolin Hfa Inhaler*) 2 puff INH Q4H PRN PRN Reason: SHORTNESS OF BREATH Atorvastatin Calcium (Lipitor*) 80 mg PO DAILY [facility] Last Admin: 12/30/18 08:11 Dose: 80 mg Dextrose (Dextrose 50% Vial 50 Ml*) 25 ml IV PUSH .FOR FS < 60 - SS PRN PRN Reason: FS < 60 Docusate Sodium (Colace Cap*) 200 mg PO DAILY [facility] Last Admin: 12/30/18 08:12 Dose: 200 mg Gabapentin (Neurontin Cap(*)) 600 mg PO BID [facility] Last Admin: 12/30/18 08:11 Dose: 600 mg Insulin Glargine (Lantus(*)) 55 units SUBCUT QAM [facility] Last Admin: 12/30/18 08:12 Dose: 55 units Insulin Human Lispro (Humalog*) 0 units SUBCUT AC [facility]; Protocol Ramipril (Altace Cap*) 10 mg PO DAILY [facility] Last Admin: 12/30/18 08:12 Dose: 10 mg Vital Signs - 8 hr 12/30/18 12/30/18 12/30/18 01:00 01:09 02:00 Temperature Pulse Rate 85 82 Respiratory 19 22 21 Rate Blood Pressure 155/72 149/68 (mmHg) O2 Sat by Pulse 92 88 Oximetry 12/30/18 12/30/18 12/30/18 02:30 03:00 03:15 Temperature 98.3 F Pulse Rate 81 82 Respiratory 20 21 18 Rate Blood Pressure 135/92 121/68 160/86 (mmHg) O2 Sat by Pulse 91 98 Oximetry 12/30/18 12/30/18 12/30/18 03:30 04:00 04:30 Temperature Pulse Rate 83 Respiratory 18 18 18 Rate Blood Pressure 134/80 121/72 126/78 (mmHg) O2 Sat by Pulse 91 Oximetry 12/30/18 12/30/18 12/30/18 05:00 05:31 06:00 Temperature 98.6 F Pulse Rate 87 78 81 Respiratory 17 19 20 Rate Blood Pressure 144/82 139/85 145/71 (mmHg) O2 Sat by Pulse 95 90 95 Oximetry 12/30/18 12/30/18 06:01 08:11 Temperature Pulse Rate 84 Respiratory 20 18 Rate Blood Pressure 125/83 (mmHg) O2 Sat by Pulse 95 Oximetry Oxygen Devices in Use Now: Nasal Cannula Appearance: morbidly obese Ears/Nose/Mouth/Throat: NL Teeth, Lips, Gums, Clear Oropharnyx, Mucous Membranes Moist Neck: NL Appearance and Movements; NL JVP, Trachea Midline Respiratory: Symmetrical Chest Expansion and Respiratory Effort, - - crackles Cardiovascular: NL Sounds; No Murmurs; No JVD, - - 2+ edema Lymphatic: No Cervical Adenopathy Skin: No Rash or Ulcers Neurological: Alert and Oriented x 3, NL Muscle Strength and Tone Result Diagrams: 12/29/18 22:59 12/29/18 22:59 Additional Lab and Data: Lab Results 12/29/18 12/29/18 12/29/18 Range/Units 22:59 22:59 22:59 WBC 11.1 H (3.5-10.8) 10^3/uL RBC 5.64 H (3.70-4.87) 10^6 /uL Hgb 11.5 L (12.0-16.0) g/dL Hct 37 (35-47) % MCV 66 L (80-97) fL MCH 20 L (27-31) pg MCHC 31 (31-36) g/dL RDW 22 H (10-15) % Plt Count 286 (150-450) 10^3/uL MPV 9.0 (7.4-10.4) fL Neut % (Auto) 70.0 % Lymph % (Auto) 19.3 % [place] % (Auto) 6.6 % Eos % (Auto) 2.8 % Baso % (Auto) 1.3 % Absolute Neuts (auto) 7.7 (1.5-7.7) 10^3/ul Absolute Lymphs (auto) 2.1 (1.0-4.8) 10^3/ul Absolute Monos (auto) 0.7 (0-0.8) 10^3/ul Absolute Eos (auto) 0.3 (0-0.6) 10^3/ul Absolute Basos (auto) 0.1 (0-0.2) 10^3/ul Absolute Nucleated RBC 0.0 10^3/ul Nucleated RBC % 0.0 INR (Anticoag Therapy) 1.09 (0.82-1.09) Sodium 139 (135-145) mmol/L Potassium 3.7 (3.5-5.0) mmol/L Chloride 100 L (101-111) mmol/L Carbon Dioxide 32 (22-32) mmol/L Anion Gap 7 (2-11) mmol/L BUN 12 (6-24) mg/dL Creatinine 0.66 (0.51-0.95) mg/dL Est GFR ( Amer) 109.1 (>60) Est GFR (Non-Af Amer) 90.2 (>60) BUN/Creatinine Ratio 18.2 (8-20) Glucose 144 H (70-100) mg/dL Calcium 9.5 (8.6-10.3) mg/dL Total Bilirubin 0.50 (0.2-1.0) mg/dL AST 14 (13-39) U/L ALT 18 (7-52) U/L Alkaline Phosphatase 128 H (34-104) U/L Troponin I 0.01 (<0.03) ng/mL Total Protein 7.6 (6.4-8.9) g/dL Albumin 4.0 (3.2-5.2) g/dL Globulin 3.6 (2-4) g/dL Albumin/Globulin Ratio 1.1 (1-3) Assess/Plan/Problems-Billing Assessment: - Patient Problems (1) Pulmonary edema Current Visit: Yes Status: Acute Code(s): J81.1 - CHRONIC PULMONARY EDEMA SNOMED Code(s): 66387256 Comment: presented with fleeting chest pain, abdominal pain and shoulder pain ( lasted minutes) Was hypoxemic in the ED, CXR shows pulmonary edema given a dose of lasix in the ED echo, troponins daily weight, I/Os (2) Diabetes Current Visit: No Status: Acute Priority: Medium Code(s): E11.9 - TYPE 2 DIABETES MELLITUS WITHOUT COMPLICATIONS SNOMED Code(s): 44239847 Comment: lantus 50 units diabetic diet FS ACHS (3) ELIZABETH (obstructive sleep apnea) Current Visit: No Status: Acute Priority: Medium Code(s): G47.33 - OBSTRUCTIVE SLEEP APNEA (ADULT) (PEDIATRIC) SNOMED Code(s): 88814142 Comment: Not using CPAP at home (4) CAD (coronary artery disease) Current Visit: No Status: Acute Code(s): I25.10 - ATHSCL HEART DISEASE OF [place] CORONARY ARTERY W/O ANG PCTRS SNOMED Code(s): 90085289 Comment: Has multiple risk factors. Her most recent stress test was 2015 and was low risk order an ECHO Cont home meds (5) Morbid obesity Current Visit: No Status: Acute Code(s): E66.01 - MORBID (SEVERE) OBESITY DUE TO EXCESS CALORIES SNOMED Code(s): 335243821 Comment: - BMI 48.5 (6) DVT prophylaxis Current Visit: No Status: Acute Code(s): KXJ4036 - SNOMED Code(s): 391558024 Comment: heparin (7) Full code status Current Visit: No Status: Acute Code(s): Z78.9 - OTHER SPECIFIED HEALTH STATUS SNOMED Code(s): 745562757 (8) Hypertension Current Visit: No Status: Acute Code(s): I10 - ESSENTIAL (PRIMARY) HYPERTENSION SNOMED Code(s): 29696516 Comment: continue home meds
[2018-12-30] MEDS ORDERED: Docusate CAP* 100 MG PO SCH (09:00)
[2018-12-30] MEDS ORDERED: Gabapentin CAP(*) 300 MG PO SCH (09:00)
[2018-12-30] MEDS ORDERED: Insulin GLARGINE(*) 1 UNITS UNIT SUBCUT SCH (09:00)
[2018-12-30] MEDS ORDERED: Ramipril CAP* 10 MG PO SCH (09:00)
[2018-12-30] MEDS ORDERED: Atorvastatin* 80 MG TAB PO SCH (09:00)
[2018-12-30] MEDS ORDERED: Cetirizine* 10 MG TAB PO SCH (10:00)
[2018-12-30] MEDS ORDERED: Fluticasone NASAL SPRAY 50MCG* 16 gm SPRAY BTL BOTH NARES SCH (10:00)
[2018-12-30] MEDS ORDERED: Insulin LISPRO* 1 UNITS UNIT SUBCUT SCH (11:30)
[2018-12-30 12:12] VITALS: BP 133/44
--- NOTE | 2018-12-30 18:35 | DS ---
CC: Dr. Crocker * DISCHARGE SUMMARY: DATE OF ADMISSION: 12/30/18 DATE OF DISCHARGE: 12/30/18 PRIMARY CARE PROVIDER: Dr. Crocker. ATTENDING PHYSICIAN WHILE IN THE HOSPITAL: Dr. Sanjay Ding * (dictated by KIRSTEN Quintero). PRIMARY DIAGNOSES: 1. Epigastric pain, resolved, likely related to abdominal gas pains. 2. Bilateral upper back pain, likely musculoskeletal. SECONDARY DIAGNOSES: 1. Chronic obstructive pulmonary disease, on 1 to 2 L overnight. 2. Diabetes mellitus type 2. 3. Paroxysmal atrial fibrillation, one-time episode, not on anticoagulation. 4. Hypertension. 5. Chronic low back pain. 6. Neuropathy. STUDIES WHILE IN THE HOSPITAL: Chest x-ray on 12/30/18, impression: Cardiomegaly with interstitial edema consistent with CHF per radiographic read. However, per my read, this appears to have no acute pulmonary findings and the chest x-ray is overall unchanged from prior in December of 2017. EKG on 12/29/18 at 7:26 p.m., heart rate 84 beats per minute, normal sinus rhythm. No ST elevations or depressions. There is isolated T-wave flattening in lead III, which is unchanged from previous EKG in 2018. Repeat EKG on 12/30/18 is overall unchanged from 12/29/18 and heart rate is 83 beats per minute. PERTINENT LAB DATA: Troponin 0.01 and 0.02 x2 readings. BNP 26. HISTORY OF PRESENT ILLNESS/HOSPITAL COURSE: Elyssa Ty is a 63-year-old white female with past medical history significant for COPD, on 1 to 2 L of oxygen overnight; diabetes mellitus type 2; one episode of paroxysmal atrial fibrillation, not on anticoagulation; hypertension; chronic low back pain; and neuropathy, who presented to the emergency department on 12/29/18 due to an episode of epigastric pain which she experienced while walking, which was approximately 30 seconds in length. After this resolved, she then had bilateral upper back pain, which lasted for 30 seconds and again resolved without any intervention. She then reported to the emergency department because she was concerned having a cardiac event. In the emergency department, she was found to have oxygen saturation in the 80s. This resolved later in the day and she was 98% on room air. She did admit to having nasal congestion and cough for the last 2 to 3 days, which she agreed was likely related to a viral upper respiratory infection and denied fever, chills, difficulty breathing, chest pain, epigastric pain, abdominal pain, nausea, or vomiting on date of discharge. The patient did admit to having a loose bowel movement on date of discharge, but only one. The patient did tell me that after her brief episode of epigastric pain she did have a lot of flatus, which likely explains her episode. Given her EKGs were without any changes and her troponins were all negative, this is very unlikely to be acute coronary syndrome. PHYSICAL EXAM ON DAY OF DISCHARGE: General: An obese, white female, sitting in hospital chair, appearing comfortable, in no acute distress. Eyes: PERRL. Sclerae anicteric. ENT: Mucous membranes moist. Lungs: Clear to auscultation throughout, minimally diminished lung sounds throughout. Cardio: Regular rate and rhythm without murmurs, rubs, or gallops. Abdomen: Soft, nontender, nondistended. No epigastric pain. Normoactive bowel sounds x4 quadrants. Extremities: No clubbing, cyanosis, or edema. Skin: Warm, dry, and intact. Neuro: Alert and oriented x3. No focal deficits. Able to move all extremities. Psych: Pleasant and cooperative. DISCHARGE PLAN: Diet: Carbohydrate consistent diet. Activity: The patient may return to normal activity as tolerated. The patient was advised to return to the emergency department if she did ever experience any sudden shortness of breath, severe chest pain, fever or chills, dizziness, lightheadedness or loss of consciousness, severe abdominal pain or vomiting to the point of not being able to keep in liquids, or 6 plus episodes of diarrhea per day. The patient should follow up with her primary care provider regarding this hospital stay. She was agreeable that these pains were likely related to abdominal gas pains and was prescribed simethicone for this as below. Additionally, the patient was prescribed symptomatic medications for her viral URI. DISCHARGE MEDICATIONS: New medications: 1. Cetirizine 10 mg p.o. daily. 2. Flonase 2 sprays both nares daily. 3. Simethicone 80 mg p.o. t.i.d. p.r.n. abdominal pain. 4. Mucinex 600 mg p.o. b.i.d. p.r.n. cough. Continued home medications: 1. Albuterol HFA inhaler 2 puffs inhaled q.4 hours p.r.n. shortness of breath/ wheezing. 2. Lipitor 80 mg p.o. daily. 3. Calcium/vitamin D tablet 1 tab p.o. daily. 4. Colace 200 mg p.o. daily. 5. Lasix 20 mg p.o. daily. 6. Gabapentin 600 mg p.o. b.i.d. 7. Insulin glargine 0 to 35 units subcu q.p.m. 8. Insulin glargine 65 subcu q.a.m. 9. Insulin lispro 30 to 34 units subcu a.c. 10. Probiotic 1 cap p.o. daily. 11. Multivitamin 1 tab p.o. daily. 12. Nystatin cream 1 application topically b.i.d. p.r.n. rash. 13. Fish oil 1000 mg p.o. daily. 14. Ramipril 10 mg p.o. daily. 15. Metformin 1000 mg p.o. b.i.d. CONDITION ON DISCHARGE: Stable. DISPOSITION: Home. TIME SPENT: Approximately 35 minutes was spent on this discharge, approximately half this time was spent at bedside evaluating the patient and discussing the plan of care. KIRSTEN QUINTERO [id number]/[facility] #: [id number] MTDC[facility]rol
[2018-12-30] MEDS ORDERED: guaiFENesin ER TAB 600 MG PO SCH (21:00)
== END 2018-12-30 17:20 | disposition home or self-care (01) ==
LOC: ED 19:16 → MEDTELE 12-30 02:30
PROVIDERS: ADMIT Student in an Organized Health Care Education/Training Program; ATTEND Internal Medicine
DX: R10.84 Generalized abdominal pain (principal); M54.5 Low back pain; J44.9 Chronic obstructive pulmonary disease, unspecified; R07.9 Chest pain, unspecified; R06.02 Shortness of breath; R60.0 Localized edema; M54.9 Dorsalgia, unspecified; E11.9 Type 2 diabetes mellitus without complications; I48.0 Paroxysmal atrial fibrillation; I10 Essential (primary) hypertension; G62.9 Polyneuropathy, unspecified; Z79.899 Other long term (current) drug therapy
CPT/HCPCS: 36415; 71046; 80053; 81003; 81015; 83690; 83880; 84484; 85025; 85610; 87077; 87086; 87186; 93005; 96374; 99283; A9270-GY; G0378; J1940

== ENCOUNTER 2019-01-02 20:42 | Observation (INO) | payer OTHER ==
--- NOTE | 2019-01-02 21:33 | ED ---
Shortness of Breath - HPI Summary HPI Summary: 63 year old female presents with SOB and dyspnea on exertion. She denies any chest pain. Patient states that she has been wearing 2L of oxygen continuously for the last couple of days. She normally only wears 2L at night. Patient states that she has had a cold with a productive cough. Denies fever. Patient sleeps in a recliner. She denies any recent weight change. no increase swelling in her legs. She was admitted 3 days ago and diagnosed with a viral uri and started on some Mucinex. States that her cough has been more productive but has been swallowing it. Denies any abd pain. No nausea and vomiting. Has history of COPD. No chest pain with ambulation. has sleep apnea but refuses to use CPAP. - History of Current Complaint Chief Complaint: EDShortnessOfBreath Time Seen by Provider: 01/02/19 21:12 - Allergy/Home Medications Allergies/Adverse Reactions: Allergies Allergy/AdvReac Type Severity Reaction Status Date / Time No Known Allergies Allergy Verified 01/02/19 20:48 PMH/Surg Hx/FS Hx/Imm Hx Endocrine/Hematology History: Reports: Hx Diabetes Denies: Hx Anticoagulant Therapy, Hx Systemic Lupus Erythematosus, Hx Thyroid Disease Cardiovascular History: Reports: Hx Hypercholesterolemia, Hx Hypertension, Other Cardiovascular Problems/Disorders - afib Denies: Hx Congestive Heart Failure Respiratory History: Reports: Hx Chronic Obstructive Pulmonary Disease (COPD), Hx Pneumonia, Hx Sleep Apnea, Other Respiratory Problems/Disorders - RESPIRATORY FAILURE (per admission hx) GI History: Reports: Hx Gall Bladder Disease - removed, Other GI Disorders - umbilical hernia, constipation History: Reports: Other Problems/Disorders - per admission Hx - UTIs Denies: Hx Dialysis, Hx Renal Disease Musculoskeletal History: Reports: Hx Arthritis, Hx Back Problems - pain, Other Musculoskeletal History - sciatica, back pain Denies: Hx Rheumatoid Arthritis, Hx Osteoporosis Sensory History: Reports: Hx Contacts or Glasses Denies: Hx Cataracts, Hx Glaucoma, Hx Hearing Aid Opthamlomology History: Reports: Hx Contacts or Glasses Denies: Hx Cataracts, Hx Glaucoma Neurological History: Reports: Other Neuro Impairments/Disorders - neuropathy Denies: Hx Headaches, Hx Seizures, Hx Transient Ischemic Attacks (TIA) Psychiatric History: Reports: Hx Anxiety - active Denies: Hx Depression - Cancer History Cancer Type, Location and Year: Uterine CA Hx Chemotherapy: No Hx Radiation Therapy: Yes - Surgical History Surgery Procedure, Year, and Place: humerus repair . hysterectomy 2010 d/ t uterine cx. cholecystectomy when in her 40s. c/s. tonsilectomy Hx Anesthesia Reactions: No - Immunization History Date of Tetanus Vaccine: utd Date of Influenza Vaccine: fall 2018 Infectious Disease History: No Infectious Disease History: Denies: Hx of Known/Suspected MRSA, History Other Infectious Disease, Traveled Outside the [place] in Last 30 Days - Family History Known Family History: Positive: None, Cardiac Disease - coronary artery disease , CHF, [place] Negative: Blood Disorder Family History: R & n/C - Social History Alcohol Use: None Hx Substance Use: No Substance Use Type: Reports: None Substance Use Comment - Amount & Last Used: occasionally eats pot brownies Hx Tobacco Use: Yes - 50 pack year history Smoking Status (MU): Former Smoker Type: Cigarettes Amount Used/How Often: 1 ppd + Length of Time of Smoking/Using Tobacco: 40 years Have You Smoked in the Last Year: No Review of Systems Constitutional: Negative Eyes: Negative ENT: Negative Cardiovascular: Negative Positive: Shortness Of Breath, Cough, Other - sputum production Gastrointestinal: Negative Genitourinary: Negative Musculoskeletal: Negative Skin: Other - erythema, swelling, and burning of the bilateral lower extremities Neurological: Negative Psychological: Normal All Other Systems Reviewed And Are Negative: Yes Physical Exam Triage Information Reviewed: Yes Vital Signs On Initial Exam: Initial Vitals Temp Pulse Resp BP Pulse Ox 97.6 F 86 20 145/73 93 01/02/19 20:43 01/02/19 20:43 01/02/19 20:43 01/02/19 20:43 01/02/19 20:43 Vital Signs Reviewed: Yes Appearance: Positive: Well-Appearing, No Pain Distress, Well-Nourished Skin: Positive: Warm, Skin Color Reflects Adequate Perfusion, Dry, Other - Erythema, warmth of bilateral lower extremities Head/Face: Positive: Normal Head/Face Inspection Eyes: Positive: Normal, EOMI, KEITH, Conjunctiva Clear ENT: Positive: Normal ENT inspection, Pharynx normal Neck: Positive: Supple, Nontender Respiratory/Lung Sounds: Positive: Clear to Auscultation, Decreased Breath Sounds Cardiovascular: Positive: Normal, RRR, Pulses are Symmetrical in both Upper and Lower Extremities, S1, S2 Abdomen Description: Positive: Nontender, Soft Bowel Sounds: Positive: Present Musculoskeletal: Positive: Normal Neurological: Positive: Normal Psychiatric: Positive: Normal, Affect/Mood Appropriate Procedures - Sedation Patient Received Moderate/Deep Sedation with Procedure: No Diagnostics - Vital Signs Vital Signs Temp Pulse Resp BP Pulse Ox 01/02/19 20:43 97.6 F 86 20 145/73 93 - Laboratory Result Diagrams: 01/02/19 21:40 01/02/19 21:40 Lab Statement: Any lab studies that have been ordered have been reviewed, and results considered in the medical decision making process. - Radiology chest Radiology Interpretation Completed By: ED Physician Summary of Radiographic Findings: no pneumonia - CT cta CT Interpretation Completed By: Radiologist Summary of CT Findings: Single subsegmental branch pulmonary embolus - EKG No standard instances Cardiac Rate: NL EKG Rhythm: Sinus Rhythm EKG Comparison: No Significant Change Summary of EKG Findings: sinus rhythm Re-Evaluation - Re-Evaluation First Eval Comment: ambulated on 2 liters with oxygen of 92. not short of breath Second Eval Re-Evaluation Time: 23:44 Change: Unchanged Comment: no improvement with steriods or treatment. lungs CTA. discussed has oxygen at home and portable oxygen. when patient falls asleep here she is a mouth breather and o2 stats drop. patient has sleep apnea so this is likely cause of this as oxygen is bw 88-90. Third Eval Re-Evaluation Time: 02:03 Comment: walked to bathroom and on 2 liters was 81. Fourth Eval Re-Evaluation Time: 02:30 Comment: currently oxygen 88 in room on 5 liters face mask. states does have fam hx of DVT. Course/Dx - Course Course Of Treatment: 63 year old female who presents with SOB and dyspnea on exertion. she has been having a cough and nasal congestion. Patient has been wearing 2L of oxygen continuously for the past couple of days. Denies fever. Lungs CTA bilaterally. CXR negative for pneumonia. Patient ambulated w/o oxygen and sats dropped to 84%. Given solumedrol and duoneb and azithromycin for potential copd excerbation. wbc normal. bnp normal. crp elevated. troponin .01. discussed with dr corrigan who says to get a d-dimer. d-dimer elevated at 332 so will CTA. patient ambulate with oxygen with 2 liters and oxygen dropped to 81. oxygen here has been 93-85. CTA shows subsegmental branch pulmonnary emobli. discussed with dr mcelroy who agrees to admit. will start on xarelto - Diagnoses Differential Diagnosis/HQI/PQRI: Positive: CHF, COPD Exacerbation, Pneumonia Provider Diagnoses: Hypoxia, Pulmonary emboli - Critical Care Time Critical Care Time: 30-74 min - 60 mins Discharge ED - Sign-Out/Discharge Documenting (check all that apply): Patient Departure - Discharge Plan Condition: Stable Disposition: ADMITTED TO [facility] Referrals: Yong Crocker MD [Primary Care Provider] - - Billing Disposition and Condition Condition: STABLE Disposition: Admitted to [facility] [place]
[2019-01-02 22:02] LABS: Albumin 3.7 g/dL (3.2-5.2); Anion Gap 8 mmol/L (2-11); CO2 Carbon Dioxide 32 mmol/L (22-32); Calcium 9.4 mg/dL (8.6-10.3); Chloride 99 mmol/L (101-111); Potassium 4.1 mmol/L (3.5-5.0); Sodium 139 mmol/L (135-145)
[2019-01-02 22:08] LABS: ALT 16 U/L (7-52); AST 12 U/L (13-39); Albumin/Globulin Ratio 1.2 (1-3); Alkaline Phosphatase 129 U/L (34-104); BUN/Creatinine Ratio 23.8 (8-20); Blood Urea Nitrogen 20 mg/dL (6-24); C Reactive Protein 18.51 mg/L (<8.01); EGFR African American 82.6 (>60); EGFR Non-African American 68.3 (>60); Globulin 3.2 g/dL (2-4); Glucose 209 mg/dL (70-100); Total Protein 6.9 g/dL (6.4-8.9)
[2019-01-02 22:09] LABS: Troponin I 0.01 ng/mL (<0.03)
[2019-01-02] MEDS ORDERED: methylPREDNISolone 125 MG* 2 ML VIAL IV ONE (22:16)
[2019-01-02] MEDS ORDERED: Albuterol/Ipratropium NEB.SOL* Albuterol 2.5 MG/Ipratropium 0.5 MG 3 ML INH ONE (22:16)
[2019-01-02 22:37] LABS: ABS Eosinophils 0.3 10^3/ul (0-0.6); ABS Lymphocytes 2.2 10^3/ul (1.0-4.8); ABS Monocytes 0.7 10^3/ul (0-0.8); ABS Neutrophils 7.2 10^3/ul (1.5-7.7); Eosinophil % 3.2 %; Hematocrit 36 % (35-47); Mean Corpuscular HGB Conc 31 g/dL (31-36); Mean Corpuscular Hemoglobin 20 pg (27-31); Mean Corpuscular Volume 67 fL (80-97); Mean Platelet Volume 8.5 fL (7.4-10.4); Platelet Count 282 10^3/uL (150-450); Red Blood Count 5.42 10^6 /uL (3.70-4.87); Red Cell Distribution Width 22 % (10-15); White Blood Count 10.5 10^3/uL (3.5-10.8)
[2019-01-02] MEDS ORDERED: Azithromycin TAB* 250 MG PO ONE (23:01)
[2019-01-02 23:51] LABS: Influenza A Molecular NEGATIVE (Negative); Influenza B Molecular NEGATIVE (Negative)
[2019-01-03] MEDS ORDERED: Iodixanol* (CONTRAST) 320 MG/ML 100 ML SDV IV ONE (01:21)
[2019-01-03] MEDS ORDERED: Rivaroxaban TAB(*) 15 MG PO ONE (02:41)
[2019-01-03 03:01] LABS: Activated Partial Thrombo Time 36.2 seconds (26.0-38.0); INR 1.09 (0.82-1.09)
[2019-01-03] MEDS ORDERED: Albuterol HFA INHALER* 8 gm MDI INH PRN (03:06)
[2019-01-03] MEDS ORDERED: Nystatin CREAM* 30 GM TOPICAL PRN (03:06)
[2019-01-03] MEDS ORDERED: Dextrose 50% VIAL 50 ml IV PUSH PRN (03:07)
[2019-01-03 04:23] LABS: % Iron Saturation 7 % (15-55); Iron 35 ug/dL (50-212); Total Iron Binding Capacity 477 mcg/dL (250-450); Transferrin 341 mg/dL (203-362)
[2019-01-03 04:43] LABS: Ferritin 7.7 ng/mL (11-307)
--- NOTE | 2019-01-03 06:02 | HP ---
CC: Dr. Crocker * HISTORY AND PHYSICAL: DATE OF ADMISSION: 01/03/19 PRIMARY CARE PROVIDER: Dr. Crocker. CHIEF COMPLAINT: Shortness of breath. HISTORY OF PRESENT ILLNESS: Ms. Ty is a 63-year-old female who was hospitalized at [facility] [place]/18 through 12/30/18 where she was evaluated for complaints of shortness of breath. During that hospitalization, it was felt that her shortness of breath was secondary to possible viral upper respiratory infection. She also at that time was complaining of back and epigastric discomfort. These were felt to be musculoskeletal and GI related. She states that when she was discharged she was generally feeling much improved. When she got home, however, she continued to have shortness of breath. She describes about a sensation like she cannot catch her breath. She has also been coughing. She has been using oxygen nightly and sometimes throughout the day, which typically she only uses the oxygen on occasion at night. She ultimately presented back to the emergency room tonight due to complaints of persistent shortness of breath. The patient does describe sleeping in a recliner though this has been ongoing for quite some time. She feels much more short of breath with lying flat. She also complains of pain in her bilateral legs. The right leg is more swollen than the left, though this is chronic and she thinks related to her lymphedema and past surgery on the right ankle. She has no chest pain at this point. PAST MEDICAL HISTORY: 1. Obstructive sleep apnea, she does not use CPAP. 2. COPD with chronic hypoxic respiratory failure, utilizing 2 L of oxygen with sleep. 3. Type 2 diabetes. 4. Atrial fibrillation. 5. Diabetic neuropathy. 6. Obesity. 7. Chronic lower back pain. PAST SURGICAL HISTORY: 1. Bilateral oophorectomy. 2. Hysterectomy secondary to uterine cancer. 3. Right ankle ORIF. 4. Right humerus ORIF. 5. Tonsillectomy. MEDICATIONS: 1. Protonix 40 mg p.o. daily. 2. Lactobacillus 1 cap p.o. daily. 3. Lantus 65 units subcutaneous q.a.m., 35 units subcutaneous q.p.m. 4. Lispro 30 units subcutaneous t.i.d. with meals. 5. Lipitor 80 mg p.o. daily. 6. Albuterol 2 puffs inhaled q.4 hours p.r.n. shortness of breath. 7. Lasix 20 mg p.o. daily. 8. Flonase 2 squirts to both nostrils daily p.r.n. allergies. 9. Colace 100 mg p.o. daily. 10. Calcium plus D 1 tab p.o. daily. 11. Ramipril 10 mg p.o. daily. 12. Tiro-3 fatty acid 1000 mg p.o. q.h.s. 13. Nystatin cream apply topically twice daily p.r.n. candidal intertrigo. 14. Multivitamin 1 tab p.o. daily. 15. Gabapentin 600 mg p.o. b.i.d. 16. Metformin 1000 mg p.o. b.i.d. 17. Guaifenesin ER 600 mg p.o. b.i.d. ALLERGIES: No known drug allergies. FAMILY HISTORY: Mom at the age of 64 of coronary artery disease. Dad at the age of 75 of emphysema. SOCIAL HISTORY: The patient is a former smoker; she quit in May 2009. She does not drink alcohol. 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 She is . She has 2 children. She indicates that her daughter, Ann Ty, would be her healthcare proxy. REVIEW OF SYSTEMS: A complete 11-system review of systems is obtained. Pertinent positives and negatives are as per HPI and otherwise negative. PHYSICAL EXAMINATION GENERAL: The patient is a well-developed, morbidly obese, middle-aged female, seen sitting up in a recliner chair, in no acute distress. VITAL SIGNS: Blood pressure 135/62, pulse 93, respirations 22, temp 97.2, O2 sat 93% on 5 L. HEENT: Pupils are equal. Extraocular muscles are intact. Oropharynx is clear and moist. PULMONARY: There are a few left lower lobe crackles. Otherwise, lungs are clear. CARDIAC: Normal S1, S2. Regular rate and rhythm. I do not appreciate any murmurs. There is thickened lymphedemic skin to the bilateral lower extremities , right lower extremity being more swollen than the left. ABDOMEN: Bowel sounds are present. Abdomen is obese, soft, nontender, nondistended. MUSCULOSKELETAL: There is no cyanosis or clubbing of the digits. There is full active range of motion of all 4 extremities. NEURO: Cranial nerves II through XII are grossly intact. Sensation is intact to light touch throughout. Strength is 5/5 and symmetric in both upper and lower extremities bilaterally. PSYCH: The patient is alert. She is oriented x3. Affect appears appropriate. SKIN: Visible areas of skin are warm, dry, and without rash. There is chronic erythema and thickened skin to the bilateral lower extremities. DIAGNOSTIC STUDIES/LAB DATA: WBC 10.5, hemoglobin 11.0, hematocrit 36, MCV 67 , platelets 282. INR 1.09. D-dimer 332. Sodium 139, potassium 4.1, chloride 99, CO2 of 32, BUN 20, creatinine 0.84, glucose 209. Lactic acid 1.1. Calcium 9.4. Bilirubin 0.3, AST 12, ALT 16, alk phos 129. Troponin 0.01. CRP 18.51. BNP 16. Albumin 3.7. Influenza A and B negative. EKG reveals normal sinus rhythm without any acute ST-T wave abnormalities. Chest x-ray to my interpretation is clear without any focal infiltrates. CTA chest: There is a single subsegmental branch pulmonary embolus. There is abnormal RV/LV ratio likely related to pulmonary emboli and possibly due to pulmonary hypertension. There is relatively stable pulmonary nodule showing nearly 2 year stability based on current Fleischner guidelines, no followup is recommended. ASSESSMENT AND PLAN: Ms. Ty is a 63-year-old female who has now presented twice to the emergency room in the past 1 week with complaints of shortness of breath, with the initial visit also having chest pain, who is now found to have a pulmonary embolism. 1. Pulmonary embolism. At this point, the patient has been started on Xarelto by the ER provider. I feel that this is an appropriate treatment for her single pulmonary embolism. She will undergo lower extremity Dopplers to rule out DVT. Additionally, I have ordered a transthoracic echocardiogram to evaluate for right heart strain. The patient is much more hypoxic than I would initially anticipate. However, given her baseline chronic obstructive pulmonary disease and chronic hypoxic respiratory failure, perhaps the pulmonary embolism has just tipped her over the edge to being more hypoxic. We will try to wean O2 as able. 2. Anemia. The patient is chronically anemic. Her MCV is quite low. I question if she may have thalassemia trait or significant iron deficiency anemia. I will order stool guaiac and iron studies. 3. Chronic obstructive pulmonary disease. There are no signs of exacerbation at this point, though again she is more hypoxic than normal. She is not on any long- acting inhaled medications. She would likely benefit from pulmonology evaluation. 4. Type 2 diabetes. The patient will be continued on her usual dose of Lantus 65 units in the morning, 35 at bedtime along with Humalog standing with meals. Never added a lispro sliding scale. Her most recent hemoglobin A1c we have in our system was from January 2017. I will add on a hemoglobin A1c level to the labs drawn in the emergency room. The patient's metformin will be placed on hold if she received contrast for her CTA. 5. Diabetic neuropathy. We will continue gabapentin 600 mg twice daily. 6. Hyperlipidemia. Continue Lipitor. 7. Bilateral lower extremity lymphedema. Continue Lasix 20 mg p.o. daily. 8. Hypertension. BP is under good control. Continue ramipril 10 mg daily. 9. DVT prophylaxis. According to the Adult Thrombosis Prophylaxis Risk Factor Assessment Guide, the patient has a total risk factor score of 11, making her the highest risk. She has been started on Xarelto and this will act as her DVT prophylaxis. 10. Code status is full. TIME SPENT: Fifty five minutes was spent admitting this patient. [id number]/CPS #: [id number] MARIE
--- NOTE | 2019-01-03 07:07 | PN ---
<Magdi Lopez - Last Filed: 01/03/19 14:55> Hospitalist Progress Note Date of Service: 01/03/19 S/IE: Elyssa Ty is a 63 year-old woman with a history significant for COPD , ELIZABETH and DMII who was admitted after presenting to the [facility] [place] [facility] last evening () with a CC of SOB. This is hospital day 2. She had been previously hospitalized here last week (12/30/18) for one day with a similar complaint that was thought to be an URI at that time. She felt better upon discharge, however began to have SOB again shortly after returning home. She normally uses home O2 at 2LPM at night but recently has also been using during the day. Continues to have an occasional cough productive of cloudy / dark sputum. Reports some ongoing orthopnea and sleeps in a recliner as a result. Complains of b/l leg pain and swelling, right more swollen than left, this is chronic and patient believes may be lymphedema related to a prior right ankle surgery. Denies CP, fever, chills, n/v, hemoptysis, hematochezia or melana. Has been on O2 at 4LPM with a sat of about 95%. States baseline on RA is 92%. Was feeling generally well today and was eating a good breakfast. Had TTE this AM. Looking at discharge today. Recommend PCP, pulmonology and possible endocrinology f/u. PMH: Obstructive sleep apnea, she does not use CPAP COPD with chronic hypoxic respiratory failure, utilizing 2 L of oxygen with sleep Type 2 diabetes Diabetic neuropathy Obesity Chronic lower back pain ?Atrial fibrillation (patient denies, but appears in recent ED and H+P notes) PSH: Bilateral oophorectomy Hysterectomy secondary to uterine cancer Right ankle ORIF Right humerus ORIF Tonsillectomy Social Hx: The patient is a former smoker, she quit in May 2009. Denies ETOH use. 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 . Has 2 children. Daughter Ann Ty is healthcare proxy. Family Hx: Mom at 64 of CAD. Dad at 75 of emphysema. Allergies: NKDA Home Medications: Protonix 40 mg p.o. daily Lactobacillus 1 cap p.o. daily Lantus 65 units subcutaneous q.a.m., 35 units subcutaneous q.p.m Lispro 30 units subcutaneous t.i.d. with meals Lipitor 80 mg p.o. daily Albuterol 2 puffs inhaled q.4 hours p.r.n. shortness of breath Lasix 20 mg p.o. daily Flonase 2 squirts to both nostrils daily p.r.n. allergies Colace 100 mg p.o. daily Calcium plus D 1 tab p.o. daily Ramipril 10 mg p.o. daily Mullen-3 fatty acid 1000 mg p.o. q.h.s Nystatin cream apply topically twice daily p.r.n. candidal intertrigo Multivitamin 1 tab p.o. daily Gabapentin 600 mg p.o. b.i.d Metformin 1000 mg p.o. b.i.d Guaifenesin ER 600 mg p.o. b.i.d O: PE: 3 Temp Pulse Resp BP Pulse Ox 98.2 F 95 17 135/59 95 01/03/19 07:20 01/03/19 07:20 01/03/19 09:09 01/03/19 07:20 01/03/19 07:20 General: Obese female, appears stated age. Not in acute distress. AAOx4. Pleasantly cooperates with interview and examination. HEENT: Head normocephalic, atraumatic. Hearing grossly normal. PERRLA. EOMI. Vision grossly normal. Nares patent. Oral mucosa pink and moist. Uvula midline. No thyromegaly or thyroid nodules. No lymphadenopathy. No JVD. Trachea midline. Chest: Breathing unlabored while on O2 at 4LPM. Air movement somewhat diminished in all lung castaneda b/l. Some expiratory wheezing noted in R base. Regular heart rhythm. Normal S1/S2. No murmur appreciated. Abdomen: Soft, protuberant. Some RUQ tenderness on palpation. Extremities: UE and LE distal CMS intact b/l. 5/5 UE handgrip strength b/l and 5 /5 hip / plantar / dorsi flexion b/l. 2+ edema b/l, R > L. Recent Labs: 3 01/03/19 05:38 Hemoglobin A1c 8.6 H 3 01/02/19 01/02/19 01/02/19 21:40 21:40 21:40 WBC 10.5 RBC 5.42 H Hgb 11.0 L Hct 36 MCV 67 L MCH 20 L MCHC 31 RDW 22 H Plt Count 282 MPV 8.5 Neut % (Auto) 69.0 Lymph % (Auto) 21.0 Cataño % (Auto) 6.6 Eos % (Auto) 3.2 Baso % (Auto) 0.2 Absolute Neuts (auto) 7.2 Absolute Lymphs (auto) 2.2 Absolute Monos (auto) 0.7 Absolute Eos (auto) 0.3 Absolute Basos (auto) 0.0 Absolute Nucleated RBC 0.0 Nucleated RBC % 0.0 INR (Anticoag Therapy) APTT D-Dimer, Quantitative Sodium 139 Potassium 4.1 Chloride 99 L Carbon Dioxide 32 Anion Gap 8 BUN 20 Creatinine 0.84 Est GFR ( Amer) 82.6 Est GFR (Non-Af Amer) 68.3 BUN/Creatinine Ratio 23.8 H Glucose 209 H POC Glucose (mg/dL) Lactic Acid 1.1 Calcium 9.4 Iron 35 L TIBC 477 H % Saturation 7 L Unsat Iron Binding < 462 Transferrin 341 Ferritin 7.7 L Total Bilirubin 0.30 AST 12 L ALT 16 Alkaline Phosphatase 129 H Troponin I 0.01 C-Reactive Protein 18.51 H B-Natriuretic Peptide Total Protein 6.9 Albumin 3.7 Globulin 3.2 Albumin/Globulin Ratio 1.2 Influenza A (Rapid) Influenza B (Rapid) 3 01/02/19 01/02/19 01/02/19 21:40 21:40 22:33 WBC RBC Hgb Hct MCV MCH MCHC RDW Plt Count MPV Neut % (Auto) Lymph % (Auto) Cataño % (Auto) Eos % (Auto) Baso % (Auto) Absolute Neuts (auto) Absolute Lymphs (auto) Absolute Monos (auto) Absolute Eos (auto) Absolute Basos (auto) Absolute Nucleated RBC Nucleated RBC % INR (Anticoag Therapy) APTT D-Dimer, Quantitative 332 H Sodium Potassium Chloride Carbon Dioxide Anion Gap BUN Creatinine Est GFR ( Amer) Est GFR (Non-Af Amer) BUN/Creatinine Ratio Glucose POC Glucose (mg/dL) 205 H Lactic Acid Calcium Iron TIBC % Saturation Unsat Iron Binding Transferrin Ferritin Total Bilirubin AST ALT Alkaline Phosphatase Troponin I C-Reactive Protein B-Natriuretic Peptide 16 Total Protein Albumin Globulin Albumin/Globulin Ratio Influenza A (Rapid) Influenza B (Rapid) 3 01/02/19 01/03/19 22:50 02:46 WBC RBC Hgb Hct MCV MCH MCHC RDW Plt Count MPV Neut % (Auto) Lymph % (Auto) Cataño % (Auto) Eos % (Auto) Baso % (Auto) Absolute Neuts (auto) Absolute Lymphs (auto) Absolute Monos (auto) Absolute Eos (auto) Absolute Basos (auto) Absolute Nucleated RBC Nucleated RBC % INR (Anticoag Therapy) 1.09 APTT 36.2 D-Dimer, Quantitative Sodium Potassium Chloride Carbon Dioxide Anion Gap BUN Creatinine Est GFR ( Amer) Est GFR (Non-Af Amer) BUN/Creatinine Ratio Glucose POC Glucose (mg/dL) Lactic Acid Calcium Iron TIBC % Saturation Unsat Iron Binding Transferrin Ferritin Total Bilirubin AST ALT Alkaline Phosphatase Troponin I C-Reactive Protein B-Natriuretic Peptide Total Protein Albumin Globulin Albumin/Globulin Ratio Influenza A (Rapid) Negative Influenza B (Rapid) Negative Sputum Smear / Gram Stain (01/03/19): 4+ Neutrophils 4+ Gram Positive Cocci 4+ Gram Negative Diplococci 3+ Gram Negative Coccobacilli 1+ Gram Negative Bacilli *Culture pending LE Doppler Study (01/03/19): Indication: Leg edema. Duplex Doppler sonography of the deep venous system of both lower extremities was performed. Bilaterally the common femoral veins, proximal greater saphenous veins, proximal deep femoral veins, femoral veins, popliteal veins, posterior tibial veins and peroneal veins appear patent and compressible. IMPRESSION: NO EVIDENCE OF DEEP VENOUS THROMBOSIS OF EITHER LOWER EXTREMITY IS PRESENT. CALF VEINS ARE LIMITED IN EVALUATION BILATERALLY. TTE (01/03/19): Procedure narrative: Image quality was suboptimal. Intravenous Definity administered. Left ventricle: The cavity size is at the upper limits of normal. Wall thickness is mildly increased. Systolic function is normal. The estimated ejection fraction is 55-60%. Definity images used for ejection fraction and wall motion evaluation, other images suboptimal. Doppler parameters are consistent with abnormal left ventricular relaxation (grade 1 diastolic dysfunction). Doppler parameters are consistent with elevated ventricular end- diastolic filling pressure. Right ventricle: Systolic function is low normal. Mitral valve: The Mitral valve annulus appears calcified. The leaflets are normal thickness. There is no evidence of stenosis. There is trace regurgitation. Aortic valve: The findings are consistent with mild stenosis. The mean systolic gradient is 12.0 mm Hg. The LVOT to aortic valve VTI ratio is 0.6. The valve area by the velocity-time integral method is 1.80 cm^2. The valve area by the peak velocity method is 1.70 cm^2. Tricuspid valve: There is trace regurgitation. Pulmonary arteries: Systolic pressure is mildly to moderately increased. The peak pressure during systole by Doppler is 40.0 mm Hg. Compared with prior echocardiogram of 06/27/15, LVEF is stable, right ventricle systolic function unchanged, is new, mitral valve function is stable. Pulmonary artery pressure elevation newly noted, not able to estimate on previous study. Chest / Thorax CTA (01/02/19): IMPRESSION: 1. Single subsegmental branch pulmonary embolus. Abnormal RV LV ratio likely not related to pulmonary emboli and possibly due to pulmonary hypertension. 2. Relatively stable pulmonary nodules showing nearly 2 year stability. Based on current Kaela guidelines, no followup is recommended. CXR (01/02/19): INDICATION: Shortness of breath. COMPARISON: Comparison is made with prior chest x-ray studies from October 03, 2015 and December 30, 2018. TECHNIQUE: Dual-energy PA and lateral views of the chest were obtained. FINDINGS: The heart is within normal limits in size. Mediastinal and hilar contours appear within normal limits. The lungs are hyperinflated. There is mild prominence of the interstitial markings. No focal infiltrate or pleural effusion is seen. IMPRESSION: 1. PROMINENCE OF THE INTERSTITIAL MARKINGS SUGGESTIVE OF MILD INTERSTITIAL PULMONARY EDEMA VERSUS CHRONIC INTERSTITIAL LUNG DISEASE. 2. COPD. EKG (01/02/19): Sinus rhythm.normal P axis, V-rate 60- 99 Baseline wander in lead(s) V5 - NORMAL ECG - ECG NEEDS E-SIGNING Current Medications: Albuterol (Ventolin Hfa Inhaler*) 2 puff INH Q4H PRN PRN Reason: SHORTNESS OF BREATH Atorvastatin Calcium (Lipitor*) 80 mg PO DAILY [facility] Last Admin: 01/03/19 09:09 Dose: 80 mg Calcium/Vitamin D (Oscal D Tab 250/125*) 1 tab PO DAILY [facility] Last Admin: 01/03/19 09:09 Dose: 1 tab Dextrose (Dextrose 50% Vial 50 Ml*) 25 ml IV PUSH .FOR FS < 60 - SS PRN PRN Reason: FS < 60 Docusate Sodium (Colace Cap*) 100 mg PO DAILY [facility] Last Admin: 01/03/19 09:10 Dose: 100 mg Ferrous Sulfate (Ferrous Sulfate Tab*) 325 mg PO DAILY [facility] Furosemide (Lasix Tab*) 20 mg PO DAILY [facility] Gabapentin (Neurontin Cap(*)) 600 mg PO BID [facility] Last Admin: 01/03/19 09:09 Dose: 600 mg Guaifenesin (Mucinex*) 600 mg PO BID [facility] Last Admin: 01/03/19 09:09 Dose: 600 mg Insulin Glargine (Lantus(*)) 35 units SUBCUT QPM [facility] Insulin Glargine (Lantus(*)) 65 units SUBCUT QAM [facility] Last Admin: 01/03/19 09:10 Dose: 65 units Insulin Human Lispro (Humalog*) 30 units SUBCUT AC [facility] Last Admin: 01/03/19 12:25 Dose: 30 units Insulin Human Lispro (Humalog*) 0 units SUBCUT ACHS [facility]; Protocol Last Admin: 01/03/19 12:25 Dose: 12 units Metformin HCl (Glucophage*) 1,000 mg PO BID [facility] Multivitamins/Minerals (Theragran/Minerals Tab*) 1 tab PO DAILY [facility] Last Admin: 01/03/19 09:09 Dose: 1 tab Nystatin (Nystatin Cream*) 1 applic TOPICAL BID PRN PRN Reason: RASH Pantoprazole Sodium (Protonix Tab*) 40 mg PO DAILY [facility] Last Admin: 01/03/19 09:09 Dose: 40 mg Ramipril (Altace Cap*) 10 mg PO DAILY [facility] Last Admin: 01/03/19 09:09 Dose: 10 mg Rivaroxaban (Xarelto(*)) 15 mg PO BID WITH MEALS [facility] Recent Orders: 01/02/19 22:05 Blood Culture Stat 01/02/19 22:16 Initiate IV Access .ONCE Inhalation Treatment QSHIFT Resp Driven Protocol-Initiate Q24H 01/02/19 23:23 Sputum Culture & Gram Stain Stat 01/03/19 01:00 Initiate IV Access .ONCE 01/03/19 03:04 Up ad Halima Activity Routine Admit Routine Condition Routine Vital Signs - Manual Entry Q4H Clinical Screening Routine DVT Risk Assessment Routine 01/03/19 03:06 Albuterol HFA INHALER* [Ventolin HFA Inhaler*] 2 puff INH Q4H PRN Nystatin CREAM* 1 applic TOPICAL BID PRN May Go to Tests off Telemetry .PRN Criminal Judge Notification .PRN Criminal Judge: Continuous Q8HR 01/03/19 03:07 Dextrose 50% VIAL 50 ml* 25 ml IV PUSH .FOR FS < 60 - SS PRN 01/03/19 03:52 Stool Occult Blood, Diag Routine 01/03/19 07:30 Insulin LISPRO* [HumaLOG*] 30 units SUBCUT AC Insulin LISPRO* [HumaLOG*] See Protocol SUBCUT ACHS 01/03/19 09:00 Atorvastatin* [Lipitor*] 80 mg PO DAILY Calcium/Vitamin D TAB 250/125* [Oscal D TAB 250/125*] 1 tab PO DAILY Docusate CAP* [Colace Cap*] 100 mg PO DAILY Gabapentin CAP(*) [Neurontin CAP(*)] 600 mg PO BID Insulin GLARGINE(*) [Lantus(*)] 65 units SUBCUT QAM Multivitamins/Minerals TAB* [Theragran/minerals TAB*] 1 tab PO DAILY Pantoprazole TAB * [Protonix TAB*] 40 mg PO DAILY Ramipril CAP* [Altace CAP*] 10 mg PO DAILY guaiFENesin ER TAB [Mucinex*] 600 mg PO BID 01/03/19 13:01 obtain records [Records From Another Facility] .ONCE 01/03/19 17:00 Rivaroxaban TAB(*) [Xarelto(*)] 15 mg PO BID WITH MEALS 01/03/19 18:00 Insulin GLARGINE(*) [Lantus(*)] 35 units SUBCUT QPM 01/03/19 21:00 metFORMIN* [Glucophage*] 1,000 mg PO BID 01/03/19 Breakfast Consistent Carbohydrate Diet Heart Healthy Diet Decaf Okay 01/04/19 09:00 Ferrous Sulfate TAB* 325 mg PO DAILY Furosemide TAB* [Lasix TAB*] 20 mg PO DAILY A/I: 63 year-old woman with a history significant for COPD, ELIZABETH and DMII presenting for SOB for the second time in the past week, found to have a PE P: SOB: High suspicion related to PE as noted below Could also be related to COPD exacerbation - not on long-acting inhaled medication or pneumonia Coulud be related to pneomonia - CXR and CTA not suggestive of pneumonia as above, however productive cough and sputum smear are concerning for possible infection Also possible OHS component, might consider re-evaluation of home CPAP use Likely multi-factorial based on above factors Continue Mucinex and PRN albuterol as above Will add LABA Continue O2 as needed, attempt to wean as condition improves Consider empiric Tx for CAP if condition worsens or targeted Tx if cultures come back positive Recommend PCP and pulmonology f/u Pulmonary Embolism: Diagnosed by CTA, fairly small PE Started on Xarelto by ED provider Ordered LE doppler studies to check for DVT - negative Ordered TTE due to concern for right heart strain - shows EF of 55 - 60% and a new aortic stenosis as compared to 2016 study, also shows some pulmonary hypertension, however, cannot determine if this is new Anemia: Chronic condition, unknown etiology Ordered stool guaiac and iron studies to investigate etiology Iron studies concerning for iron deficiency anemia Ordered iron supplementation as above COPD: Chronic condition Not on any long-acting inhaled medications, will add a LABA as noted above Recommend pulmonology f/u for re-evaluation of COPD status DMII: Chronic condition Continue insulin regimen as above Ordered POC glucose checks Ordered repeat HbA1C - 8.6 Holding metformin due to CT contrast Recommend PCP and / or endocrinology f/u to develop plan to lower HbA1C Diabetic Neuropathy: Chronic condition Continue gabapentin as above HLD: Chronic condition Continue Lipitor as above LE Lymphedema: Chronic condition Continue Lasix as above HTN: Chronic condition, well controlled Continue ramipril as above ?Atrial Fibrillation: Need to confirm whether or not this is a part of history Not on any rate control or anti-coagulation DVT Prophylaxis: High risk Continue Xarelto Code Status: Full <Dwain Gallego - Last Filed: 01/07/19 13:54> Hospitalist Progress Note THIS MEDICAL STUDENT NOTE IS FOR EDUCATIONAL PURPOSES ONLY. PLEASE SEE RESIDENT AND ATTENDING ATTESTATION NOTE OF THE SAME DAY
[2019-01-03] MEDS ORDERED: Perflutren Lipid Microsphere* 3 ML VIAL ONE (07:49)
[2019-01-03] MEDS ORDERED: Atorvastatin* 80 MG TAB PO SCH (09:00)
[2019-01-03] MEDS ORDERED: Gabapentin CAP(*) 300 MG PO SCH (09:00)
[2019-01-03] MEDS ORDERED: Docusate CAP* 100 MG PO SCH (09:00)
[2019-01-03] MEDS ORDERED: Insulin GLARGINE(*) 1 UNITS UNIT SUBCUT SCH ×2 (09:00→18:00)
[2019-01-03] MEDS ORDERED: Pantoprazole TAB * 40 MG TAB PO SCH (09:00)
[2019-01-03] MEDS ORDERED: Multivitamins/Minerals TAB PO SCH (09:00)
[2019-01-03] MEDS ORDERED: Ramipril CAP* 10 MG PO SCH (09:00)
[2019-01-03] MEDS ORDERED: Calcium/Vitamin D TAB 250/125* TAB PO SCH (09:00)
[2019-01-03] MEDS ORDERED: guaiFENesin ER TAB 600 MG PO SCH (09:00)
[2019-01-03] MEDS: Insulin LISPRO* 1 UNITS UNIT SUBCUT SCH ×4 (09:10→12:25)
[2019-01-03 09:14] VITALS: BP 135/59
--- NOTE | 2019-01-03 09:58 | ECHO ---
*[facility]* [place] [address] Fax #: [phone] Transthoracic Echocardiogram Patient: Elyssa Ty : 1955 Study Date: 01/03/2019 Age: 63 Gender: F HR: 87 bpm Height: 62 in /157.5 cm BSA: 2.14 m^2 Weight: 259.5 lb /117.9 kg BMI: 47.6 kg/m^2 *Director Of Events: * Jaja Son [facility] *Referring Physician: * Sherine WilburnReading Physician: * Balbina Covington MD Indications: PE. History: Atrial fibrillation. Chronic obstructive pulmonary disease. Risk factors: Diabetes mellitus. Obese. Conclusions Summary: - Procedure narrative: Image quality was suboptimal. Intravenous Definity administered. - Left ventricle: The cavity size is at the upper limits of normal. Wall thickness is mildly increased. Systolic function is normal. The estimated ejection fraction is 55-60%. Definity images used for ejection fraction and wall motion evaluation, other images suboptimal. Doppler parameters are consistent with abnormal left ventricular relaxation (grade 1 diastolic dysfunction). Doppler parameters are consistent with elevated ventricular end-diastolic filling pressure. - Right ventricle: Systolic function is low normal. - Mitral valve: The Mitral valve annulus appears calcified. The leaflets are normal thickness. There is no evidence of stenosis. There is trace regurgitation. - Aortic valve: The findings are consistent with mild stenosis. The mean systolic gradient is 12.0 mm Hg. The LVOT to aortic valve VTI ratio is 0.6. The valve area by the velocity-time integral method is 1.80 cm^2. The valve area by the peak velocity method is 1.70 cm^2. - Tricuspid valve: There is trace regurgitation. - Pulmonary arteries: Systolic pressure is mildly to moderately increased. The peak pressure during systole by Doppler is 40.0 mm Hg. - Compared with prior echocardiogram of 06/27/15, LVEF is stable, right ventricle systolic function unchanged, is new, mitral valve function is stable. Pulmonary artery pressure elevation newly noted, not able to estimate on previous study. Study data: Transthoracic echocardiogram. Procedure: Transthoracic echocardiography was performed. Image quality was suboptimal. Intravenous Definity , 4 mlswas administered. Complete 2D, spectral Doppler, and color flow Doppler. Location: Bedside. Patient status: Inpatient. Patient room number: 432. Rhythm: Normal sinus rhythm. Findings Left ventricle: The cavity size is at the upper limits of normal. Wall thickness is mildly increased. Systolic function is normal. The estimated ejection fraction is 55-60%. Wall motion is normal; there are no regional wall motion abnormalities. Doppler parameters are consistent with abnormal left ventricular relaxation (grade 1 diastolic dysfunction). Doppler parameters are consistent with elevated ventricular end-diastolic filling pressure. Right ventricle: The cavity size is normal. Systolic function is low normal. Left atrium: The atrium is at the upper limits of normal in size. Right atrium: The atrium is mildly dilated. Mitral valve: The Mitral valve annulus appears calcified. The leaflets are normal thickness. There is no evidence of stenosis. There is trace regurgitation. Aortic valve: The valve is trileaflet. The leaflets are mildly thickened. The findings are consistent with mild stenosis. There is no significant regurgitation. Tricuspid valve: The leaflets are normal thickness. There is no evidence of stenosis. There is trace regurgitation. Pulmonic valve: The leaflets are normal thickness. There is no evidence of stenosis. There is no significant regurgitation. Aorta: The aortic root appears normal. The aortic arch appears normal. Pericardium: There is no significant pericardial effusion. Pulmonary arteries: Not well visualized. Systolic pressure is mildly to moderately increased. Systemic veins: Inferior vena cava: The vessel is dilated. There is (>= 50%) respiratory change in the IVC dimension. Measurements Left ventricle Value Ref Aortic valve continued Value Ref KRISTEN, LAX 5.0 cm 3.8 - 5.2 Mean grad, S 12.0 mm Hg ----- ESD, LAX (H) 3.8 cm 2.2 - 3.5 Peak grad, S 19.0 mm Hg ----- FS, LAX (L) 24 % 27 - 45 LVOT/AV, VTI ratio 0.6 ----- PW, ED, LAX (H) 1.2 cm 0.6 - 0.9 ISABELL, VTI 1.80 cm^2 ----- E', lat demetrius, TDI (L) 8.9 cm/sec >=10.0 ISABELL, Vmax 1.70 cm^2 - ---- E/e', lat demetrius, 12 TDI Mitral valve Value Ref E', med demetrius, TDI (L) 6.0 cm/sec >=7.0 Peak E 1.08 m/sec - ---- E/e', med demetrius, 18 Peak A 1.42 m/sec ---- - TDI Decel time 100 ms ----- E', avg, TDI 7.5 cm/sec PHT 92 ms ---- - E/e', avg, TDI 14 <=14 Mean grad, D 4.0 mm Hg - ---- Peak grad, D 10.0 mm Hg ----- LVOT Value Ref Peak E/A ratio 0.8 ----- Diam, S 2.00 cm MVA, PHT 2.4 cm^2 ----- Area 3.1 cm^2 Peak blanca, S 1.2 m/sec Pulmonic valve Value Ref VTI, S 29.0 cm Peak v, S 0.99 m/sec ----- Peak grad, S 6 mm Hg Peak grad, S 4.0 mm Hg ----- Mean grad, S 3 mm Hg Tricuspid valve Value Ref Ventricular septum Value Ref TR peak v (H) 3 m/sec <=2.8 IVS, ED (H) 1.4 cm 0.6 - 0.9 Peak RV-RA grad, S 36 mm Hg ----- Right ventricle Value Ref Aortic root Value Ref KRISTEN, LAX 2.7 cm Root diam 2.6 cm <4.2 Pressure, S 44 mm Hg Ascending aorta Value Ref Left atrium Value Ref AAo AP diam, S 2.8 cm ----- AP dim, ES (H) 4.70 cm 2.70 - 3.80 Aortic arch Value Ref ML dim, A4C 4.6 cm Arch diam 2.3 cm ----- SI dim, A4C 6.4 cm Vol/bsa, ES, A/L 32 ml/m^2 16 - 34 Decending aorta Value Ref Halle peak blanca 0.83 m/sec ----- Right atrium Value Ref SI dim, ES (H) 5.8 cm 3.4 - 5.3 Pulmonary artery Value Ref ML dim, ES, A4C 3.6 cm 2.6 - 4.4 Pressure, S 40.0 mm Hg ----- Estimated RAP 8 mm Hg Inferior vena cava Value Ref Aortic valve Value Ref Diam 2.6 cm ----- Demetrius diam, ED 2.0 cm Peak v, S 2.2 m/sec VTI, S 50.0 cm Legend: (L) and (H) sruthi values outside specified reference range. Prepared and electronically signed by Balbina Covington MD 01/03/2019 09:58
[2019-01-03] MEDS ORDERED: Rivaroxaban TAB(*) 15 MG PO SCH (17:00)
[2019-01-03] MEDS ORDERED: Mometasone/Formoter 200/5 MDI INH SCH (21:00)
[2019-01-03] MEDS ORDERED: metFORMIN* 1,000 MG TAB PO SCH (21:00)
--- NOTE | 2019-01-04 03:07 | DS ---
DISCHARGE SUMMARY: DATE OF ADMISSION: 01/03/19 DATE OF DISCHARGE: 01/03/19 PRIMARY CARE PROVIDER: Dr. Crocker. ADMITTING PROVIDER: Dr. Wilburn. ATTENDING PHYSICIAN ON THE DAY OF DISCHARGE: Dwain Gallego MD. CHIEF COMPLAINT: Shortness of breath, productive cough, slight wheeze. PRINCIPAL DIAGNOSES: Pulmonary embolism (subsegmental branch of the right middle lobe); likely mild chronic obstructive pulmonary disease exacerbation in the setting of medication noncompliance; likely obesity hypoventilation syndrome ; acute- on-chronic hypoxic respiratory failure. HISTORY OF PRESENT ILLNESS AND HOSPITAL COURSE: Elyssa Ty is a 63-year-old female with past medical history of COPD and ELIZABETH using 2 L oxygen nocturnally intermittently, insulin-dependent diabetes mellitus, diabetic neuropathy, morbid obesity, chronic lower back pain, and ?atrial fibrillation. She denies this diagnosis. She had just presented to [facility] on 12/30/18, four days prior to admission, with shortness of breath, chest discomfort, and back and epigastric discomfort. She was found to have a viral upper respiratory infection, musculoskeletal and GI pains, and was discharged. She continued to have shortness of breath. Please see H and P of Dr. Sherine Wilburn for full details , but briefly she had been coughing, she has chronic orthopnea and had pains in the bilateral legs with left greater than right swelling, which is also chronic , and has been diagnosed with lymphedema in the past. Initial workup in the [facility] Emergency Room included anemia with hemoglobin of 11.0, D-dimer was at 332, influenza swabs negative. Chest x-ray demonstrated mild interstitial pulmonary edema versus chronic interstitial lung disease. Because of the elevated D-dimer , she had a chest thoracic CTA, which did show a lung defect consistent with pulmonary embolism and a single subsegmental branch of the right middle lobe. Additionally, there were stable pulmonary nodules that had been were stable almost nearly 2 years. She was more hypoxic than her baseline and had been requiring up to 5 L of oxygen. She was started on Xarelto. Blood cultures were taken and were negative x1 day so far. Sputum culture still pending, but showed 4+ Gram-positive cocci and Gram-negative coccobacilli. She was afebrile without leukocytosis. She describes how she has been prescribed iron pills in the past since her hemoglobin was 11.0 and MCV 67, but had to cease after taking it for only 2 days due to significant GI side effects. She has recently had an EGD and colonoscopy and also a video capsule study approximately 6 weeks ago. She had an echocardiogram, which demonstrated EF of 55% to 60% with evidence of grade 1 diastolic dysfunction and duplex Doppler did not show evidence of DVTs. I had a long discussion with the patient as her symptoms of productive cough, slight wheeze, shortness of breath, and also [place] with potential COPD exacerbation etiology. She takes Ventolin infrequently and has had 2 total courses of Spiriva, but she never asked for refills after they ran out. She said she has never had pulmonary function tests done. She does have an extensive smoking history, smoking up to 2-1/2 to 3 packs a day, and overall smoking for 30 years; I would estimate she has at least a [id number] history. She quit on 05/08/09. She was considered safe for discharge with the recommendation to follow up with her web support engineer and get pulmonary function tests done. She was encouraged to be treated for COPD given her symptoms, but she was resistant to this idea given that she was already on quite a few medications (9) and now the addition of Xarelto. She also did not really like to use inhalers. They could consider to at least resume the Spiriva which she has been on in the past and has tolerated. DISCHARGE MEDICATIONS: Include: 1. Albuterol 2 puffs inhaled q.4 hours p.r.n. 2. Atorvastatin 80 mg daily. 3. Calcium carbonate 1 tab p.o. daily. 4. Docusate 100 mg p.o. daily. 5. Ferrous sulfate 325 mg p.o. daily (new). 6. Flonase 2 sprays both nares daily p.r.n. 7. Lasix 20 mg p.o. daily. 8. Gabapentin 600 mg p.o. b.i.d. 9. Guaifenesin 600 mg p.o. b.i.d. 10. Glargine insulin 35 units at p.m. and 65 units at a.m. 11. Lispro 30 to 34 units subcutaneous t.i.d. with meals. 12. Lactobacillus 1 capsule p.o. daily. 13. Metformin 1000 mg p.o. b.i.d. 14. Multivitamin 1 tab p.o. daily. 15. Nystatin topical b.i.d. p.r.n. 16. Gladstone-3 fatty acid 1000 mg p.o. q.p.m. 17. Protonix 40 mg p.o. daily. 18. Ramipril 10 mg p.o. daily. 19. Xarelto 15 mg p.o. b.i.d. for 20 more days, followed by 20 mg daily (new). 20. Spiriva 1 capsule inhaled daily (new, but has used in the past). DISCHARGE DIET: Heart-healthy, carbohydrate consistent diet. DISPOSITION: Home. CONDITION: Improved. FOLLOWUP: Please follow up with Dr. Crocker; she already has a followup scheduled next Tuesday. She was recommended to follow her status with the pulmonary doctor and to get PFTs. TIME SPENT ON DISCHARGE: Thirty minutes. [id number]/CPS #: [id number] MTDD
[2019-01-04] MEDS ORDERED: Furosemide TAB* 20 MG PO SCH (09:00)
[2019-01-04] MEDS ORDERED: Ferrous Sulfate TAB* 325 MG PO SCH (09:00)
== END 2019-01-03 17:10 | disposition home or self-care (01) ==
LOC: ED 20:42 → MEDTELE 01-03 03:04
PROVIDERS: ADMIT Hospitalist; ATTEND Internal Medicine
DX: I26.99 Other pulmonary embolism without acute cor pulmonale (principal); J96.21 Acute and chronic respiratory failure with hypoxia; J44.1 Chronic obstructive pulmonary disease with (acute) exacerbation; R05 Cough; E11.9 Type 2 diabetes mellitus without complications; Z79.4 Long term (current) use of insulin; E66.01 Morbid (severe) obesity due to excess calories; Z79.899 Other long term (current) drug therapy; Z79.01 Long term (current) use of anticoagulants; M54.5 Low back pain; Z87.891 Personal history of nicotine dependence; E78.00 Pure hypercholesterolemia, unspecified; I10 Essential (primary) hypertension
CPT/HCPCS: 36415; 71046; 71275; 80053; 82270; 82728; 83036; 83540; 83550; 83605; 83880; 84484; 85025; 85379; 85610; 85730; 86140; 87040; 87070; 87077; 87185; 87205; 93005; 93306; 93970; 96374; 99284; A9270-GY; C8929; G0378; J2930; Q9967

== ENCOUNTER 2019-01-04 11:13 | Inpatient (IN) | payer OTHER ==
--- NOTE | 2019-01-04 11:50 | ED ---
Shortness of Breath - HPI Summary HPI Summary: This patient is a 63 year old F w hx DM, HTN, recent PE on xarelto presenting to ED with a chief complaint of shortness of breath since 0800 this morning. Patient was discharged from the hospital yesterday afternoon at 1700 and was diagnosed with a PE. She was given a Xarelto prescription but has not taken it since leaving the hospital yesterday. Patient states she does not normally take oxygen but that she was taking up to 5L O2 when she was discharged (per ROR 2L PRN at home increased to 5). Patient reports taking oxygen makes her heart beat fast and makes her paranoid. This morning, when the patient got up to move and do things, she had to raise her oxygen in order to breathe. Patient states she wants a Heparin shot to help her breathing (which she had when admitted). She states her brother takes Lovenox shot daily and she would like that too. Patient denies CP but thinks her "heart is working". Did not take morning medications and very concerned about her BG. Patient states she is very paranoid about her O2 levels. - History of Current Complaint Chief Complaint: EDShortnessOfBreath Time Seen by Provider: 01/04/19 11:36 Hx Obtained From: Patient Onset/Duration: Gradual Onset, Lasting Hours - Since 0800 this morning, Still Present Timing: Constant Current Severity: Mild Dyspnea At: Exertion Aggravating Factors: Nothing Alleviating Factors: Nothing - Allergy/Home Medications Allergies/Adverse Reactions: Allergies Allergy/AdvReac Type Severity Reaction Status Date / Time No Known Allergies Allergy Verified 01/04/19 11:20 PMH/Surg Hx/FS Hx/Imm Hx Endocrine/Hematology History: Reports: Hx Diabetes Denies: Hx Anticoagulant Therapy, Hx Systemic Lupus Erythematosus, Hx Thyroid Disease, Hx Anemia, Hx Unexplained Bleeding Cardiovascular History: Reports: Hx Hypercholesterolemia, Hx Hypertension, Other Cardiovascular Problems/Disorders - afib Denies: Hx Aneurysm, Hx Angina, Hx Angioplasty, Hx Auto Implanted Cardiovert Defib, Hx Cardiac Arrest, Hx Cardiomegaly, Hx Congenital Heart Disease, Hx Congestive Heart Failure, Hx Coronary Artery Disease, Hx Deep Vein Thrombosis, Hx Embolism, Hx Hypotension, Hx Pacemaker/ICD, Hx Rheumatic Fever, Hx Syncope Respiratory History: Reports: Hx Chronic Obstructive Pulmonary Disease (COPD), Hx Pneumonia, Hx Sleep Apnea, Other Respiratory Problems/Disorders - RESPIRATORY FAILURE (per admission hx) GI History: Reports: Hx Gall Bladder Disease - removed, Other GI Disorders - umbilical hernia, constipation History: Reports: Other Problems/Disorders - per admission Hx - UTIs Denies: Hx Dialysis, Hx Renal Disease Musculoskeletal History: Reports: Hx Arthritis, Hx Back Problems - pain, Other Musculoskeletal History - sciatica, back pain Denies: Hx Rheumatoid Arthritis, Hx Osteoporosis Sensory History: Reports: Hx Contacts or Glasses - Pt does not have them with her Denies: Hx Cataracts, Hx Glaucoma, Hx Hearing Aid Opthamlomology History: Reports: Hx Contacts or Glasses - Pt does not have them with her Denies: Hx Cataracts, Hx Glaucoma Neurological History: Reports: Other Neuro Impairments/Disorders - neuropathy Denies: Hx Dementia, Hx Developmental Delay, Hx Headaches, Hx Migraine, Hx Nerve Disease, Hx Seizures, Hx Spinal Cord Injury, Hx Transient Ischemic Attacks (TIA) Psychiatric History: Reports: Hx Anxiety - active Denies: Hx Depression - Cancer History Cancer Type, Location and Year: Uterine CA Hx Chemotherapy: No Hx Radiation Therapy: Yes - Surgical History Surgery Procedure, Year, and Place: humerus repair . hysterectomy 2009 d/ t uterine cx. cholecystectomy when in her 40s. c/s. tonsilectomy Hx Anesthesia Reactions: No - Immunization History Date of Tetanus Vaccine: utd Date of Influenza Vaccine: fall 2018 Infectious Disease History: No Infectious Disease History: Denies: Hx Clostridium Difficile, Hx Hepatitis, Hx Human Immunodeficiency Virus (HIV), Hx of Known/Suspected MRSA, Hx Shingles, Hx Tuberculosis, Hx Known/ Suspected VRE, Hx Known/Suspected VRSA, History Other Infectious Disease, Traveled Outside the [place] in Last 30 Days - Family History Known Family History: Positive: Cardiac Disease - coronary artery disease, CHF, [place] Negative: Blood Disorder Family History: R & n/C - Social History Alcohol Use: None Hx Substance Use: Yes Substance Use Type: Reports: Marijuana Substance Use Comment - Amount & Last Used: Pt states she used to smoke marijuana, but hasn't in a while Hx Tobacco Use: Yes - 50 pack year history Smoking Status (MU): Former Smoker Type: Cigarettes Amount Used/How Often: 1 ppd + Length of Time of Smoking/Using Tobacco: 40 years Have You Smoked in the Last Year: No Review of Systems Cardiovascular: Other - "Fast heart beat with oxygen" Positive: Shortness Of Breath All Other Systems Reviewed And Are Negative: Yes Physical Exam - Summary Physical Exam Summary: Constitutional: Well-developed, Well-nourished, Alert. (-) Distressed Skin: Warm, Dry HENT: Normocephalic; Atraumatic Eyes: Conjunctiva normal Neck: Musculoskeletal ROM normal neck. (-) JVD, (-) Stridor, (-) Nuchal rigidity Cardio: Tachycardic. Pulmonary/Chest wall: Slightly increased work of breathing. Abd: Soft, (-) tenderness, (-) Distension, (-) Guarding, (-) Rebound Musculoskeletal: Trace edema of the bilateral lower extremities. Lymph: (-) Cervical adenopathy Neuro: Alert, Oriented x3 Psych: Anxious Triage Information Reviewed: Yes Vital Signs On Initial Exam: Initial Vitals Temp Pulse Resp BP Pulse Ox 98.6 F 74 18 153/115 97 01/04/19 11:17 01/04/19 11:17 01/04/19 11:17 01/04/19 11:17 01/04/19 11:17 Vital Signs Reviewed: Yes Procedures - Sedation Patient Received Moderate/Deep Sedation with Procedure: No Diagnostics - Vital Signs Vital Signs Temp Pulse Resp BP Pulse Ox 01/04/19 11:17 98.6 F 74 18 153/115 97 - Laboratory Result Diagrams: 01/04/19 12:22 01/04/19 12:22 Lab Statement: Any lab studies that have been ordered have been reviewed, and results considered in the medical decision making process. - Radiology CXR Radiology Interpretation Completed By: Radiologist Summary of Radiographic Findings: Cardiomegaly with interstitial edema consistent with CHF. Dr. Sims has reviewed this radiology report. - EKG 1211 Cardiac Rate: NL - 73 BPM EKG Rhythm: Sinus Rhythm ST Segment: Normal Ectopy: None Summary of EKG Findings: An EKG at 1211 reveals normal sinus rhythm at 73 BPM, nml axis, nml intervals. No STEMI. No acute changes. Dr. Sims has reviewed and interpreted this EKG. Re-Evaluation - Re-Evaluation First Eval Re-Evaluation Time: 12:42 Comment: Patient requesting to talk to me before going to XR. Patient's vital signs wnl and I reassured her that the stretcher has a portable oxygen tank for when she goes to XR. Discussed plan of care with patient including inhalers. Second Eval Re-Evaluation Time: 13:15 Comment: CXR w interstitial edema, recent echo EF 55%. D/w Dr. Gallego who agrees w short course of diuretics Third Eval Re-Evaluation Time: 13:35 Comment: Patient is anxious about her results so I discussed the findings with her in detail. Patient will be discharged home with dx of dyspnea and interstitial edema. Patient is worried about her oxygen level dropping when she walks around at home so I will have her ambulate around the department and check her O2. Fourth Eval Re-Evaluation Time: 13:45 Comment: Patient is angry about being ambulated around the department and does not think it is necessary. Patient ambulated on 2L and her SpO2 dropped to 87%. However, she is supposed to be on 5L (which the patient does not think is necessary) but her SpO2 preston to 97% on 5L O2. I discussed with her the plan to discharge her home on 5L O2 since her SpO2 is at 97% while ambulating on 5L O2, but she is requesting a second opinion from Dr. Gallego. Fifth Eval Re-Evaluation Time: 14:58 Comment: Patient is requesting a pulmonology consult but we do not have pulmonology in-house. Patient wants her blood glucose rechecked, so we will do a POC glucose. Sixth + Eval Re-Evaluation Time: 15:24 Comment: POC glucose is 183. Course/Dx - Course Course Of Treatment: 63 y/o F w hx COPD, ELIZABETH on 2L, IDDM, obesity recent R subsegmental PE, discharged 01/03 on xarelto p/w concern for SOB. -PE w anxious female, NAD. 96% on RA. HR 80's. Will check labs including BNP and trop , EKG, CXR. Dr. Gallego at bedside (recent admitting attending). 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 - Diagnoses Provider Diagnoses: Dyspnea, Interstitial edema, Steroid-induced psychosis - Physician Notifications Discussed Care of Patient With: Dwain Gallego Time Discussed With Above Provider: 12:01 Instructed by Provider To: MD Will See In ED - Discussed patient case with Dr. Gallego, the hospitalist who discharged the patient yesterday, who stated he will come see the patient in the ED. At 1234 discussed patient case with Dr. Gallego, who evaluated the patient, and agrees with inhalers for the patient. At 1315 discussed patient case with Dr. Gallego, who agrees with a short course of diuretics. At 1346 discussed patient case with Dr. Gallego, who will come see the patient. At 1415, discussed patient case with Dr. Gallego, who agreed with giving the patient medication and seeing how she does. at 1555, discussed patient case with Dr. Gallego who accepted the patient for admission to [facility]. Discharge ED - Sign-Out/Discharge Documenting (check all that apply): Patient Departure - Admit - Discharge Plan Condition: Fair Disposition: ADMITTED TO [facility] - Billing Disposition and Condition Condition: FAIR Disposition: Admitted to [facility] - Attestation Statements Document Initiated by Rudolph: Yes Documenting Scribe: Yong Valenzuela Provider For Whom Rudolph is Documenting (Include Credential): Sweta Sims MD Scribe Attestation: I, Yong Valenzuela, scribed for Sweta Sims MD on 01/04/19 at 1850. Scribe Documentation Reviewed: Yes Provider Attestation: The documentation as recorded by the Yong wilson accurately reflects the service I personally performed and the decisions made by , Sweta Sims MD Status of Scribchel Document: Viewed
[2019-01-04] MEDS ORDERED: Rivaroxaban TAB(*) 15 MG PO ONE (11:57)
[2019-01-04 12:34] LABS: ABS Basophils 0.2 10^3/ul (0-0.2); ABS Eosinophils 0.2 10^3/ul (0-0.6); ABS Lymphocytes 2.2 10^3/ul (1.0-4.8); ABS Monocytes 0.5 10^3/ul (0-0.8); ABS Neutrophils 6.8 10^3/ul (1.5-7.7); Eosinophil % 2.3 %; Hematocrit 37 % (35-47); Hemoglobin 11.1 g/dL (12.0-16.0); Lymphocyte % 21.9 %; Mean Corpuscular HGB Conc 31 g/dL (31-36); Mean Corpuscular Hemoglobin 20 pg (27-31); Mean Corpuscular Volume 67 fL (80-97); Mean Platelet Volume 8.7 fL (7.4-10.4); Platelet Count 285 10^3/uL (150-450); Red Blood Count 5.47 10^6 /uL (3.70-4.87); Red Cell Distribution Width 22 % (10-15); White Blood Count 9.8 10^3/uL (3.5-10.8)
[2019-01-04 12:47] LABS: Albumin 3.9 g/dL (3.2-5.2); Albumin/Globulin Ratio 1.1 (1-3); BUN/Creatinine Ratio 36.6 (8-20); Calcium 9.7 mg/dL (8.6-10.3); EGFR African American 100.3 (>60); EGFR Non-African American 82.9 (>60); Globulin 3.6 g/dL (2-4); Potassium 4.3 mmol/L (3.5-5.0); Total Bilirubin 0.4 mg/dL (0.2-1.0); Total Protein 7.5 g/dL (6.4-8.9)
[2019-01-04 12:49] LABS: Troponin I 0.02 ng/mL (<0.03)
[2019-01-04] MEDS ORDERED: Mometasone/Formoter 100/5 MDI INH ONE (13:05)
[2019-01-04] MEDS ORDERED: Mometasone/Formoter 200/5 MDI INH ONE (13:06)
[2019-01-04] MEDS ORDERED: Furosemide TAB* 40 MG PO ONE (13:20)
[2019-01-04] MEDS ORDERED: Furosemide TAB* 20 MG PO ONE (13:20)
[2019-01-04] MEDS ORDERED: Furosemide IV* 10 MG/ML VIAL (40 MG) IV ONE (13:49)
[2019-01-04] MEDS ORDERED: methylPREDNISolone SOD 40 MG* 1 ML VIAL IV ONE (14:14)
[2019-01-04] MEDS ORDERED: methylPREDNISolone 125 MG* 2 ML VIAL IV ONE (14:14)
[2019-01-04] MEDS ORDERED: Albuterol/Ipratropium NEB.SOL* Albuterol 2.5 MG/Ipratropium 0.5 MG 3 ML INH PRN ×2 (14:18→16:31)
[2019-01-04] MEDS ORDERED: Insulin GLARGINE(*) 1 UNITS UNIT SUBCUT ONE (14:18)
[2019-01-04] MEDS ORDERED: Albuterol/Ipratropium NEB.SOL* Albuterol 2.5 MG/Ipratropium 0.5 MG 3 ML INH ONE (14:18)
[2019-01-04] MEDS ORDERED: Azithromycin 500 mg/250 ml NS 500 MG/250 ML BAG IVPB ONE (14:21)
[2019-01-04 14:39] LABS: C Reactive Protein 11.41 mg/L (<8.01)
[2019-01-04] MEDS: Ramipril CAP* 10 MG PO SCH (15:22)
[2019-01-04] MEDS ORDERED: Fluticasone NASAL SPRAY 50MCG* 16 gm SPRAY BTL BOTH NARES PRN (16:15)
[2019-01-04] MEDS ORDERED: Dextrose 50% VIAL 50 ml IV PUSH PRN (16:37)
[2019-01-04 16:53] LABS: TSH (Thyroid Stimulating Horm) 1.13 mcIU/mL (0.34-5.60)
[2019-01-04 16:55] LABS: Free T4 1.08 ng/dL (0.61-1.12)
[2019-01-04 17:52] LABS: Erythrocyte Sed Rate 23 mm/Hr (0-29)
[2019-01-04] MEDS: Insulin LISPRO* 1 UNITS UNIT SUBCUT SCH ×2 (18:23→21:35)
[2019-01-04] MEDS: cefTRIAXone(*) 1 GM in NS 0.9% 50 ML* 50 ML IVPB SCH (18:24)
[2019-01-04] MEDS ORDERED: LORazepam TAB(*) 1 MG PO PRN (19:18)
[2019-01-04] MEDS: SPIRIVA Respimat* (tiotropium) 2.5 mcg/inh Inhaler INH SCH (19:31)
[2019-01-04] MEDS ORDERED: LORazepam TAB(*) 1 MG ONE (19:31)
[2019-01-04] MEDS: Mometasone/Formoter 200/5 MDI INH SCH (19:31)
--- NOTE | 2019-01-04 19:59 | HP ---
HISTORY AND PHYSICAL: DATE OF ADMISSION: 01/04/19 ADMITTING PROVIDER: Dwain Gallego MD. PRIMARY CARE PROVIDER: Dr. Crocker. CHIEF COMPLAINT: Altered mental status. HISTORY OF PRESENT ILLNESS: Elyssa Ty is a 63-year-old female with past medical history of COPD, chronic intermittent nocturnal hypoxic respiratory failure (2 L) with obstructive sleep apnea, insulin-dependent diabetes mellitus type 2, super morbid obesity with likely obesity hypoventilation syndrome, chronic lower back pain, and recent right medial lobe subsegmental pulmonary embolism, for which she was just discharged the day prior. This is her third presentation to [facility] in a week. She did not hand picker her Spiriva prescription, but did say she filled her Xarelto prescription, but did not take it. In fact, she says that she did not take any of her medications. She is very confused with muddied logic and difficult to follow her actual complaints. She is intermittently concerned that her oxygen will be too high or that she will be at risk for a heart attack. She initially is perseverating on the idea that she absolutely needs to get a blood thinning shot like her brother did given his medical condition and that the Xarelto would not be adequate. Later, she perseverates on the idea of getting pulmonary function tests immediately after that had been an idea broached about future outpatient workup. She feels more short of breath and she is needing to use supplemental nasal cannula oxygen which sometimes dries out her nose and then she mouth breathes and feels more short of breath when she does that. Her initial workup in the emergency room demonstrated no leukocytosis, afebrile, a VBG with a pH of 7.47; pCO2 of 47; pO2 of 64; and bicarb of 31.9. Negative troponin of 0.02. She had a chest x- ray, which was read as consistent with some interstitial pulmonary edema consistent with CHF. Her initial BNP was 19, but note her BMI is super morbidly obese at 46.6. She intermittently would be very anxious and even more panicky and sometimes would calm down. She got Lasix 40 mg IV in the emergency room along with ceftriaxone, azithromycin, Spiriva, Dulera, and DuoNeb and her oxygen requirements did decrease (she had been intermittently requiring between 2 and 5 L of oxygen), but even when she was satting at 97% on room air with those interventions, she was still encephalopathic and there was concern for possible steroid-induced psychosis or other metabolic toxic encephalopathy conditions. Of note, she did have a urinalysis from admission on 12/30/18 which showed E. coli at 75,000 to 100,000, which she had not been treated for and recent antibiotic had been one dose of azithromycin 500 mg on 01/02/19. She attests that her is an alcoholic and not reliable to be able to take care of her and given her likely severe COPD, possible continuing COPD exacerbation, and some evidence of chronic CHF (diastolic; she had a recent echo on 01/03/19 showing preserved ejection fraction and grade 1 diastolic dysfunction) that she in her encephalopathic state was not safe for discharge home. She notably in the past has had many ESRs above 100 over the years and has had on previous chest x-rays innumerable small pulmonary nodules which have been stable. A urinalysis is currently pending, but notable that she had already gotten ceftriaxone and azithromycin for a presumed COPD exacerbation. PAST MEDICAL HISTORY: COPD (has never had pulmonary function tests done, but with chronic intermittent hypoxic nocturnal respiratory failure with using 2 L) , obstructive sleep apnea, insulin-dependent diabetes mellitus type 2, super morbid obesity with a BMI of 46.6 and likely undiagnosed obesity hypoventilation syndrome, diabetic neuropathy, and chronic lower back pain. There has been question in the previous notes about atrial fibrillation, but she denied that at last admission and had not been on anticoagulation until recent right middle subsegmental pulmonary embolism diagnosed on 01/02/19 for which she is now on Xarelto, but had not actually taken at home. Endometrial cancer and has been told that she has lymphedema. PAST SURGICAL HISTORY: Bilateral oophorectomy, hysterectomy secondary to uterine cancer, right ankle ORIF, right humerus ORIF, and tonsillectomy. MEDICATIONS: Include: 1. Xarelto 15 mg p.o. b.i.d. 2. Multivitamin tab. 3. Lispro 30 to 34 units subcutaneous t.i.d. with meals. 4. Lantus 35 units at p.m. and 65 units at a.m. 5. Calcium carbonate/vitamin D3 one tab p.o. daily. 6. Lasix 20 mg p.o. daily. 7. Flonase 2 sprays both nares daily p.r.n. 8. Ventolin 2 puffs inhaled q.4 hours p.r.n. 9. Docusate 100 mg p.o. daily. 10. Lipitor 80 mg p.o. daily. 11. Guaifenesin 600 mg p.o. b.i.d. 12. Spiriva 1 capsule inhaled daily. 13. Protonix 40 mg p.o. daily. 14. Ogema-3 fatty acid 1000 mg p.o. q.p.m. 15. Nystatin 1 application topical b.i.d. p.r.n. 16. Lactobacillus 1 capsule p.o. daily. 17. Gabapentin 600 mg p.o. b.i.d. 18. Ferrous sulfate 325 mg p.o. daily. 19. Metformin 1000 mg p.o. b.i.d. 20. Ramipril 10 mg p.o. daily. She has been prescribed, but has not filled Dulera 2 puffs inhaled b.i.d. and a Z- Sai. ALLERGIES: No known drug allergies. FAMILY HISTORY: Mother at age 64 of coronary artery disease and dad at age 75 of emphysema per prior records. SOCIAL HISTORY: The patient is a former smoker who quit in May 2009. She smoked for 30 years at the end more than 2-1/2 packs per day approximately 60 to 75 pack- years in total. She denies alcohol or drug use. Her daughter, Ann Ty, was her healthcare proxy. She is a full code. 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 REVIEW OF SYSTEMS: Somewhat limited as the patient is tangential and is lost to questioning. She does intermittently say that she has shortness of breath and intermittent cough. Denies any chest pain or abdominal pain. PHYSICAL EXAMINATION GENERAL APPEARANCE: Acutely anxious, not seemingly in pain. VITAL SIGNS: Temperature 98.6, pulse rate 74, respiratory rate 18, initially sats have varied widely between high 90s on room air to desatting to 87% with 2 L with ambulation; she is currently 97% on room air again. HEENT: Normocephalic, atraumatic. Pupils are equal, round, and reactive to light. Extraocular motions are intact. No scleral icterus. LUNGS: No smita wheezing or rales, moderately reduced air exchange. CARDIAC: Regular rate and rhythm. No murmurs, rubs, or gallops. ABDOMEN: Soft, nontender, nondistended, but obese. EXTREMITIES: Warm, well perfused. There is 1+ edema in the right leg, 2+ in the left leg. NEUROLOGIC: Cranial nerves II through XII grossly intact. Able to ambulate independently. She is oriented to her 's name. She does not say her own name or the year. She says she is in "the hospital." DIAGNOSTIC STUDIES/LAB DATA: Labs: White count 9.8, hemoglobin 11.1, hematocrit 37, platelets 285. ESR pending. VBG, pH 7.47, pCO2 of 47, pO2 of 64 , bicarb 31.9, O2 sat 93.9. Sodium 139, potassium 4.3, chloride 99, carbon dioxide 33, anion gap 7, BUN 26, creatinine 0.71, glucose 197, calcium 9.7. Total bilirubin 0.4, AST 15, ALT 20, alkaline phosphatase 120. Troponin 0.02, CRP 11.4, down from 18.5 on 01/02/19, BNP 19. Total protein 7.5, albumin 3.9. TSH has been added and is 1.13; within normal limits, free T4 added and is 1.08. Imaging: Chest x-ray demonstrated cardiomegaly with interstitial edema consistent with CHF. EKG demonstrated normal sinus rhythm, poor R-wave progression, Q waves in lead III, T-wave inversion in V1, normal intervals, QTc is 410. There is no change from prior. ASSESSMENT AND PLAN: Elyssa Ty is a 63-year-old female now being admitted for the third time in a week with history of likely severe chronic obstructive pulmonary disease and obesity hypoventilation syndrome and obstructive sleep apnea with chronic intermittent use of 2 L home oxygen at night only, but did have increased oxygen requirements during last discharge which required during the day in the setting of a new pulmonary embolism that was subsegmental in the right middle lobe, for which she had been started on Xarelto, but has not been compliant yet with home dosing. She is a very poor historian with encephalopathy at the moment, so it is unclear if she is actually telling the truth, but she says she is not taking any of her medications, though she did reportedly fill the Xarelto. She does certainly have multiple medical problems and reportedly an alcoholic . She was not deemed safe for discharge given medication noncompliance and her brittle state. Notably on the day prior when I discharged this patient, I had advocated for increased inhaler therapies for her likely severe chronic obstructive pulmonary disease. At that time, she had only been saying she had an old Ventolin inhaler in her purse which she only intermittently used. She had said that she has had 2 courses of Spiriva in the past, but not currently and said that she is on too many medications as is and does not want further medications. I did order a Spiriva at discharge, but she did not ultimately pick that up. I had suspicion that this likely had a component of chronic obstructive pulmonary disease exacerbation on top of the newly discovered pulmonary embolism given reports of increased productive cough and wheezing per the patient. She notably on 01/02/19 did get Solu-Medrol 125 mg in the ED. She was not discharged on any steroids. She did get a repeat dose here in the emergency room. I think steroid-induced psychosis has to be at least on the differential along with infectious and other toxic metabolic etiologies. She is at risk for hypercapnic respiratory failure with too much oxygen supplementation, so we will target between 88% and 92%. Given her body habitus and likely obesity hypoventilation syndrome, she could possibly benefit from a CPAP or BiPAP machine at night, but for now we will use her 2 L of nasal cannula or more as required to meet those oximetry goals. I am going to continue the ceftriaxone and azithromycin. Notably, her sputum culture from did ultimately grow Branhamella catarrhalis; otherwise, known as Moraxella catarrhalis, which can commonly be seen in chronic obstructive pulmonary disease exacerbations. I am going to hold off on giving her any other steroids for now, but we will escalate her inhaler therapy as opposed to what she takes at home. Continue Spiriva, add on Dulera, and I have already sent a Dulera script when she first came into the emergency room to home along with DuoNebs q.2 hours p.r.n. as it seems like her oxygen requirements did improve with these therapies, but as mentioned she still was quite altered and not considered safe for discharge. 2. Diastolic congestive heart failure with evidence of mild exacerbation given pulmonary interstitial edema on chest x-ray. Her BNP is normal, but can be false negative in cases of obesity and she is certainly super morbidly obese. I am going to do strict Is and Os, daily weights. She is status post 40 mg IV in the emergency room. I will continue that once daily at home dose. Her home dose is 20 mg p.o. daily and she does have some lower extremity edema, which has been attributed to lymphedema in the past. 3. Hypertension. Continue her ramipril 10 mg p.o. daily. 4. Pulmonary embolism. Continue Xarelto 15 mg p.o. b.i.d. for the next 19 days and we will transition to 20 mg daily. This seems to be one of her inciting concerns at least initially perseverating on the idea that her brother was getting Lovenox shots (of note, she had actually told me he had been on Coumadin the day before) and she was insisting that she should get shots as well , presumably of Lovenox. She does not have a clear provoking incident in terms of immobility for her small pulmonary embolism and she did not have any right heart strain on her echocardiogram from 2 days ago or elevated cardiac biomarkers like normal troponin and normal BNP. 5. Altered mental status. We will further work up with urinalysis. Notably she did have a E. coli urinary tract infection evidence from prior to this week , which was not treated and unfortunately, already did get the ceftriaxone, azithromycin before her urine likely could be collected, so this will be a limited diagnostic utility. She otherwise does not have any other episodes of sepsis. 6. Insulin-dependent diabetes mellitus. Home doses are Lantus 65 units a.m. and 35 units p.m. I am going to be putting her on 15 units a.m. and 30 units p.m. with a high dose sliding scale and monitoring q. a.c. h.s. Her last A1c was 8.6%. She will likely have some elevated postprandial sugars here at least over the next 24 hours given the Solu-Medrol she received. 7. On chart review, she has had, as mentioned, elevated ESR frequently above 100. I am adding on an ESR and a connective-tissue cascade panel, which starts with NEVILLE and a CCP, especially given her lung nodules which seems to have been stable. 8. FEN. She can have a heart-healthy diet, carbohydrate consistent. No IV fluids. 9. Code status. She is a full code. Medical surrogate is her daughter, Ann Ty. 10. DVT prophylaxis. She is already on Xarelto. [id number] #: [id number] MARIE
[2019-01-04] MEDS ORDERED: Haloperidol INJ IV/IM* 5 MG/ML AMP IV SLOW PU ONE (21:15)
[2019-01-04] MEDS ORDERED: Haloperidol INJ IV/IM* 5 MG/ML AMP ONE (21:24)
[2019-01-04] MEDS: Melatonin 3 MG TAB PO SCH (21:29)
[2019-01-04] MEDS: guaiFENesin ER TAB 600 MG PO SCH (21:34)
[2019-01-04] MEDS: Rivaroxaban TAB(*) 15 MG PO SCH (21:35)
[2019-01-05 00:48] LABS: Urine Appearance Cloudy; Urine Bilirubin Negative (Negative); Urine Blood Negative (Negative); Urine Color Yellow; Urine Glucose 1+(50 mg/dL) (Negative); Urine Ketones 1+ (Negative); Urine Nitrite Negative (Negative); Urine Protein 1+(30 mg/dL) (Negative); Urine Specific Gravity 1.017 (1.010-1.030); Urine Urobilinogen Negative (Negative)
[2019-01-05 00:54] LABS: Urine Bacteria Absent (Absent); Urine Red Blood Cell Trace(0-2/hpf) (Absent); Urine Squamous Epithelial Cell Present (Absent); Urine White Blood Cell 3+(>20/hpf) (Absent)
[2019-01-05 01:03] LABS: Urine Benzodiazepine Screen None Detected (None Detect); Urine Opiates Screen None Detected (None Detect)
[2019-01-05 05:39] LABS: ABS Lymphocytes 1.4 10^3/ul (1.0-4.8); ABS Monocytes 0.6 10^3/ul (0-0.8); ABS Neutrophils 7.3 10^3/ul (1.5-7.7); Eosinophil % 0.1 %; Hematocrit 36 % (35-47); Hemoglobin 10.7 g/dL (12.0-16.0); Lymphocyte % 14.6 %; Mean Corpuscular HGB Conc 30 g/dL (31-36); Mean Corpuscular Hemoglobin 20 pg (27-31); Mean Corpuscular Volume 68 fL (80-97); Mean Platelet Volume 8.9 fL (7.4-10.4); Platelet Count 247 10^3/uL (150-450); Red Cell Distribution Width 22 % (10-15); White Blood Count 9.3 10^3/uL (3.5-10.8)
[2019-01-05 05:42] LABS: BUN/Creatinine Ratio 40.5 (8-20); Calcium 9.3 mg/dL (8.6-10.3); EGFR African American 95.6 (>60); Potassium 4.2 mmol/L (3.5-5.0)
[2019-01-05] MEDS: SPIRIVA Respimat* (tiotropium) 2.5 mcg/inh Inhaler INH SCH (07:25)
[2019-01-05] MEDS: Mometasone/Formoter 200/5 MDI INH SCH ×2 (07:26→19:42)
[2019-01-05] MEDS ORDERED: Insulin GLARGINE(*) 1 UNITS UNIT SUBCUT SCH ×2 (08:00→20:00)
[2019-01-05] MEDS: Furosemide IV* 10 MG/ML VIAL (40 MG) IV SCH (08:16)
[2019-01-05] MEDS: Insulin LISPRO* 1 UNITS UNIT SUBCUT SCH ×4 (08:16→21:15)
[2019-01-05] MEDS: Pantoprazole TAB * 40 MG TAB PO SCH (08:17)
[2019-01-05] MEDS: guaiFENesin ER TAB 600 MG PO SCH ×2 (08:17→20:12)
[2019-01-05] MEDS: Multivitamins/Minerals TAB PO SCH (08:17)
[2019-01-05] MEDS: Ramipril CAP* 10 MG PO SCH (08:17)
[2019-01-05] MEDS: Docusate CAP* 100 MG PO SCH (08:17)
[2019-01-05] MEDS: Rivaroxaban TAB(*) 15 MG PO SCH ×2 (08:17→17:46)
[2019-01-05] MEDS: Atorvastatin* 80 MG TAB PO SCH (08:17)
[2019-01-05] MEDS ORDERED: Tiotropium CAPSULE (NF) 1 CAP/18 MCG CAP.INH INH SCH (09:00)
--- NOTE | 2019-01-05 15:27 | PN ---
Subjective Date of Service: 01/05/19 Interval History: Had continued paranoid thinking last night. Got 5mg haldol at 2130. Her daughter slept the night. She continues to be concerned about her oxygen and has some difficulty still explaining her reasoning but ultimately seemingly concerned that she is at increased risk for adverse cardiac event like a heart attack. Currently 1L Sat 92%. Afebrile. Feet are cold. Rash under right arm. Denies dysuria. Does not feel safe going home. Denies chest pain, not coughing much. Objective Active Medications: Albuterol/Ipratropium (Duoneb (Albuterol 2.5 Mg/Ipratropium 0.5 Mg)) 1 neb INH Q2H PRN PRN Reason: SOB/WHEEZING Atorvastatin Calcium (Lipitor*) 80 mg PO DAILY [facility] Last Admin: 01/05/19 08:17 Dose: 80 mg Dextrose (Dextrose 50% Vial 50 Ml*) 25 ml IV PUSH .FOR FS < 60 - SS PRN PRN Reason: FS < 60 Docusate Sodium (Colace Cap*) 100 mg PO DAILY [facility] Last Admin: 01/05/19 08:17 Dose: 100 mg Fluticasone Propionate (Flonase Nasal [place] 50mcg*) 2 spray BOTH NARES DAILY PRN PRN Reason: CONGESTION Furosemide (Lasix Iv*) 40 mg IV DAILY [facility] Last Admin: 01/05/19 08:16 Dose: 40 mg Guaifenesin (Mucinex*) 600 mg PO BID [facility] Last Admin: 01/05/19 08:17 Dose: 600 mg Ceftriaxone Sodium 1 gm/ (Sodium Chloride) 50 mls @ 100 mls/hr IVPB Q24H [facility] Last Admin: 01/04/19 18:24 Dose: 100 mls/hr Azithromycin (Zithromax 500 Mg/250 Ml) 500 mg in 250 mls @ 250 mls/hr IVPB Q24H [facility] Stop: 01/07/19 15:59 Insulin Glargine (Lantus(*)) 35 units SUBCUT Q24H [facility] Insulin Glargine (Lantus(*)) 65 units SUBCUT Q24H [facility] Insulin Human Lispro (Humalog*) 0 units SUBCUT ACHS [facility]; Protocol Last Admin: 01/05/19 11:45 Dose: 9 units Lorazepam (Ativan Tab(*)) 1 mg PO Q6H PRN PRN Reason: ANXIETY Last Admin: 01/04/19 19:38 Dose: 1 mg Melatonin (Melatonin) 3 mg PO BEDTIME [facility] Last Admin: 01/04/19 21:29 Dose: Not Given Mometasone Furoate/Formoterol Fumar (Dulera 200/5 Mdi*) 2 puff INH BID [facility] Last Admin: 01/05/19 07:26 Dose: 2 puff Multivitamins/Minerals (Theragran/Minerals Tab*) 1 tab PO DAILY [facility] Last Admin: 01/05/19 08:17 Dose: 1 tab Nystatin (Nystatin Cream*) 1 applic TOPICAL BID PRN PRN Reason: RASH Pantoprazole Sodium (Protonix Tab*) 40 mg PO DAILY [facility] Last Admin: 01/05/19 08:17 Dose: 40 mg Ramipril (Altace Cap*) 10 mg PO DAILY [facility] Last Admin: 01/05/19 08:17 Dose: 10 mg Rivaroxaban (Xarelto(*)) 15 mg PO BID WITH MEALS [facility] Stop: 01/24/19 08:01 Last Admin: 01/05/19 08:17 Dose: 15 mg Tiotropium [place] (Spiriva Respimat 2.5 Mcg) 2 puff INH DAILY [facility] Last Admin: 01/05/19 07:25 Dose: 2 puff Vital Signs - 8 hr 01/05/19 01/05/19 01/05/19 07:35 07:52 11:09 Temperature 97.9 F 97.9 F Pulse Rate 82 75 Respiratory 20 18 16 Rate Blood Pressure 128/55 126/52 (mmHg) O2 Sat by Pulse 90 97 Oximetry Oxygen Devices in Use Now: Nasal Cannula Appearance: NAD, sitting in chair Eyes: No Scleral Icterus Ears/Nose/Mouth/Throat: NL Teeth, Lips, Gums Respiratory: Symmetrical Chest Expansion and Respiratory Effort, Clear to Auscultation Cardiovascular: NL Sounds; No Murmurs; No JVD, RRR Abdominal: NL Sounds; No Tenderness; No Distention, - - central adiposity Extremities: - - trace edema b/l Skin: No Rash or Ulcers Neurological: Alert and Oriented x 3, NL Muscle Strength and Tone Nutrition: Taking PO's Result Diagrams: 01/05/19 04:56 01/05/19 04:56 Additional Lab and Data: Laboratory Results - last 24 hr 01/04/19 01/04/19 01/04/19 12:22 12:22 17:51 WBC 9.8 RBC 5.47 H Hgb 11.1 L Hct 37 MCV 67 L MCH 20 L MCHC 31 RDW 22 H Plt Count 285 MPV 8.7 Neut % (Auto) 68.9 Lymph % (Auto) 21.9 Barton % (Auto) 5.2 Eos % (Auto) 2.3 Baso % (Auto) 1.7 Absolute Neuts (auto) 6.8 Absolute Lymphs (auto) 2.2 Absolute Monos (auto) 0.5 Absolute Eos (auto) 0.2 Absolute Basos (auto) 0.2 Absolute Nucleated RBC 0.0 Nucleated RBC % 0.0 ESR 23 Sodium 139 Potassium 4.3 Chloride 99 L Carbon Dioxide 33 H Anion Gap 7 BUN 26 H Creatinine 0.71 Est GFR ( Amer) 100.3 Est GFR (Non-Af Amer) 82.9 BUN/Creatinine Ratio 36.6 H Glucose 197 H POC Glucose (mg/dL) 213 H Calcium 9.7 Total Bilirubin 0.40 AST 15 ALT 20 Alkaline Phosphatase 120 H Troponin I 0.02 C-Reactive Protein 11.41 H Total Protein 7.5 Albumin 3.9 Globulin 3.6 Albumin/Globulin Ratio 1.1 TSH 1.13 Free T4 1.08 Urine Color Urine Appearance Urine pH Ur Specific [place] Urine Protein Urine Ketones Urine Blood Urine Nitrate Urine Bilirubin Urine Urobilinogen Ur Leukocyte Esterase Urine WBC (Auto) Urine RBC (Auto) Ur Squamous Epith Cells Urine Bacteria Urine Glucose Urine Opiates Screen Ur Barbiturates Screen Ur Phencyclidine Scrn Ur Amphetamines Screen U Benzodiazepines Scrn Urine Cocaine Screen U Cannabinoids Screen 01/04/19 01/04/19 01/05/19 20:29 23:55 00:35 WBC RBC Hgb Hct MCV MCH MCHC RDW Plt Count MPV Neut % (Auto) Lymph % (Auto) [place] % (Auto) Eos % (Auto) Baso % (Auto) Absolute Neuts (auto) Absolute Lymphs (auto) Absolute Monos (auto) Absolute Eos (auto) Absolute Basos (auto) Absolute Nucleated RBC Nucleated RBC % ESR Sodium Potassium Chloride Carbon Dioxide Anion Gap BUN Creatinine Est GFR ( Amer) Est GFR (Non-Af Amer) BUN/Creatinine Ratio Glucose POC Glucose (mg/dL) 262 H 283 H Calcium Total Bilirubin AST ALT Alkaline Phosphatase Troponin I C-Reactive Protein Total Protein Albumin Globulin Albumin/Globulin Ratio TSH Free T4 Urine Color Yellow Urine Appearance Cloudy Urine pH 6.0 Ur Specific [place] 1.017 Urine Protein 1+(30 mg/dl) A Urine Ketones 1+ A Urine Blood Negative Urine Nitrate Negative Urine Bilirubin Negative Urine Urobilinogen Negative Ur Leukocyte Esterase 1+ A Urine WBC (Auto) 3+(>20/hpf) A Urine RBC (Auto) Trace(0-2/hpf) Ur Squamous Epith Cells Present A Urine Bacteria Absent Urine Glucose 1+(50 mg/dl) A Urine Opiates Screen Ur Barbiturates Screen Ur Phencyclidine Scrn Ur Amphetamines Screen U Benzodiazepines Scrn Urine Cocaine Screen U Cannabinoids Screen 01/05/19 01/05/19 01/05/19 00:35 04:56 04:56 WBC 9.3 RBC 5.30 H Hgb 10.7 L Hct 36 MCV 68 L MCH 20 L MCHC 30 L RDW 22 H Plt Count 247 MPV 8.9 Neut % (Auto) 78.1 Lymph % (Auto) 14.6 Barton % (Auto) 6.7 Eos % (Auto) 0.1 Baso % (Auto) 0.5 Absolute Neuts (auto) 7.3 Absolute Lymphs (auto) 1.4 Absolute Monos (auto) 0.6 Absolute Eos (auto) 0.0 Absolute Basos (auto) 0.0 Absolute Nucleated RBC 0.0 Nucleated RBC % 0.0 ESR Sodium 139 Potassium 4.2 Chloride 98 L Carbon Dioxide 32 Anion Gap 9 BUN 30 H Creatinine 0.74 Est GFR ( Amer) 95.6 Est GFR (Non-Af Amer) 79.0 BUN/Creatinine Ratio 40.5 H Glucose 237 H POC Glucose (mg/dL) Calcium 9.3 Total Bilirubin AST ALT Alkaline Phosphatase Troponin I C-Reactive Protein Total Protein Albumin Globulin Albumin/Globulin Ratio TSH Free T4 Urine Color Urine Appearance Urine pH Ur Specific [place] Urine Protein Urine Ketones Urine Blood Urine Nitrate Urine Bilirubin Urine Urobilinogen Ur Leukocyte Esterase Urine WBC (Auto) Urine RBC (Auto) Ur Squamous Epith Cells Urine Bacteria Urine Glucose Urine Opiates Screen None detected Ur Barbiturates Screen None detected Ur Phencyclidine Scrn None detected Ur Amphetamines Screen None detected U Benzodiazepines Scrn None detected Urine Cocaine Screen None detected U Cannabinoids Screen None detected 01/05/19 01/05/19 07:40 11:20 WBC RBC Hgb Hct MCV MCH MCHC RDW Plt Count MPV Neut % (Auto) Lymph % (Auto) [place] % (Auto) Eos % (Auto) Baso % (Auto) Absolute Neuts (auto) Absolute Lymphs (auto) Absolute Monos (auto) Absolute Eos (auto) Absolute Basos (auto) Absolute Nucleated RBC Nucleated RBC % ESR Sodium Potassium Chloride Carbon Dioxide Anion Gap BUN Creatinine Est GFR ( Amer) Est GFR (Non-Af Amer) BUN/Creatinine Ratio Glucose POC Glucose (mg/dL) 189 H 280 H Calcium Total Bilirubin AST ALT Alkaline Phosphatase Troponin I C-Reactive Protein Total Protein Albumin Globulin Albumin/Globulin Ratio TSH Free T4 Urine Color Urine Appearance Urine pH Ur Specific [place] Urine Protein Urine Ketones Urine Blood Urine Nitrate Urine Bilirubin Urine Urobilinogen Ur Leukocyte Esterase Urine WBC (Auto) Urine RBC (Auto) Ur Squamous Epith Cells Urine Bacteria Urine Glucose Urine Opiates Screen Ur Barbiturates Screen Ur Phencyclidine Scrn Ur Amphetamines Screen U Benzodiazepines Scrn Urine Cocaine Screen U Cannabinoids Screen Assess/Plan/Problems-Billing Assessment: 63 yo female PMH super morbid obesity, COPD, ELIZABETH, likely obesity hypoventilation syndrome, chronic nocturnal respiratory failure (2L), IDDM, and recent subsegmental PE p/w confusion and paranoia. - Patient Problems (1) Encephalopathy Current Visit: Yes Status: Acute Code(s): G93.40 - ENCEPHALOPATHY, UNSPECIFIED SNOMED Code(s): 53241330 Comment: DDx steroid induced psychosis, UTI, hypercapnia (not seen on VBG but certainly at risk given obesity hypoventilation). less likely CVA but could consider non contrast CTH if not continues to improve. improving, still slightly paranoid. No focal neurological deficits (2) Diastolic CHF Current Visit: Yes Status: Acute Code(s): I50.30 - UNSPECIFIED DIASTOLIC ( CONGESTIVE) HEART FAILURE SNOMED Code(s): 475467154 Comment: recent ECHO with grade 1 diastolic dysfunction. CXR consistent with interstitial edema. lower extremity edema improving continue lasix 40mg IV daily. Home dose is lasix 20mg po daily daily weights, strict io (3) COPD (chronic obstructive pulmonary disease) Current Visit: No Status: Acute Code(s): J44.9 - CHRONIC OBSTRUCTIVE PULMONARY DISEASE, UNSPECIFIED SNOMED Code(s): 50815014 Comment: - was not compliant with addition of spiriva on discharge and overall had been reticent to add meds/inhalers. - Patient has a 50 pack/year history and quit in 2009. - Continue duo nebs q4hr prn. - Continue dulera - last PFTS were in 2009 that I can see, no e/o obstruction. - continue cftx and azithromycin. Recent sputum culture with moraxella catarrhalis (4) UTI (urinary tract infection) Current Visit: No Status: Acute Comment: - Urine culture growing Ecoli 75- 100k on 12/30 but was asymptomatic and not treated. On cftx here given encephalopathy. (5) Pulmonary embolism Current Visit: Yes Status: Acute Code(s): I26.99 - OTHER PULMONARY EMBOLISM WITHOUT ACUTE COR PULMONALE SNOMED Code(s): 08843022 Comment: continue xarelto 15mg BID limited to only subsegmental in right middle lobe. not clearly provoked. (6) Hypertension Current Visit: No Status: Acute Code(s): I10 - ESSENTIAL (PRIMARY) HYPERTENSION SNOMED Code(s): 68455722 Comment: continue ramipril 10mg (7) Morbid obesity Current Visit: No Status: Acute Code(s): E66.01 - MORBID (SEVERE) OBESITY DUE TO EXCESS CALORIES SNOMED Code(s): 029747344 Comment: - BMI 45.8 (8) ELIZABETH (obstructive sleep apnea) Current Visit: No Status: Acute Priority: Medium Code(s): G47.33 - OBSTRUCTIVE SLEEP APNEA (ADULT) (PEDIATRIC) SNOMED Code(s): 75026405 Comment: 2L at night at home. Does not using CPAP at home (she lost it long ago and does not like it) (9) Type 2 diabetes mellitus Current Visit: No Status: Acute Comment: - Continue lantus and lispro - Carb control diet Status and Disposition: medicine inpatient.
[2019-01-05] MEDS: Azithromycin 500 mg/250 ml NS 500 MG/250 ML BAG IVPB SCH (16:20)
[2019-01-05] MEDS: cefTRIAXone(*) 1 GM in NS 0.9% 50 ML* 50 ML IVPB SCH (17:47)
[2019-01-05] MEDS: Insulin GLARGINE(*) 1 UNITS UNIT SUBCUT SCH (20:11)
[2019-01-05] MEDS: Melatonin 3 MG TAB PO SCH (20:12)
[2019-01-05] MEDS: Nystatin CREAM* 15 GM TUBE TOPICAL PRN (21:12)
[2019-01-06 06:12] LABS: ABS Basophils 0.1 10^3/ul (0-0.2); ABS Eosinophils 0.2 10^3/ul (0-0.6); ABS Lymphocytes 2.3 10^3/ul (1.0-4.8); ABS Monocytes 0.6 10^3/ul (0-0.8); ABS Neutrophils 6.1 10^3/ul (1.5-7.7); Eosinophil % 1.9 %; Hematocrit 39 % (35-47); Hemoglobin 11.8 g/dL (12.0-16.0); Lymphocyte % 24.5 %; Mean Corpuscular HGB Conc 31 g/dL (31-36); Mean Corpuscular Hemoglobin 21 pg (27-31); Mean Corpuscular Volume 67 fL (80-97); Mean Platelet Volume 8.4 fL (7.4-10.4); Platelet Count 296 10^3/uL (150-450); Red Blood Count 5.76 10^6 /uL (3.70-4.87); Red Cell Distribution Width 22 % (10-15); White Blood Count 9.3 10^3/uL (3.5-10.8)
[2019-01-06 06:22] LABS: BUN/Creatinine Ratio 28.4 (8-20); Calcium 9.6 mg/dL (8.6-10.3); EGFR African American 95.6 (>60)
[2019-01-06] MEDS: Mometasone/Formoter 200/5 MDI INH SCH ×2 (08:16→20:23)
[2019-01-06] MEDS: SPIRIVA Respimat* (tiotropium) 2.5 mcg/inh Inhaler INH SCH (08:17)
[2019-01-06] MEDS: Atorvastatin* 80 MG TAB PO SCH (09:56)
[2019-01-06] MEDS: Rivaroxaban TAB(*) 15 MG PO SCH ×2 (09:56→17:21)
[2019-01-06] MEDS: Pantoprazole TAB * 40 MG TAB PO SCH (09:57)
[2019-01-06] MEDS: Multivitamins/Minerals TAB PO SCH (09:57)
[2019-01-06] MEDS: guaiFENesin ER TAB 600 MG PO SCH ×2 (09:57→20:56)
[2019-01-06] MEDS: Furosemide IV* 10 MG/ML VIAL (40 MG) IV SCH (09:58)
[2019-01-06] MEDS: Ramipril CAP* 10 MG PO SCH (09:58)
[2019-01-06] MEDS: Docusate CAP* 100 MG PO SCH (09:58)
[2019-01-06] MEDS: Insulin GLARGINE(*) 1 UNITS UNIT SUBCUT SCH ×2 (10:03→20:56)
[2019-01-06] MEDS: Insulin LISPRO* 1 UNITS UNIT SUBCUT SCH ×4 (10:04→20:56)
[2019-01-06] MEDS ORDERED: Insulin LISPRO* 1 UNITS UNIT SUBCUT ONE (12:41)
--- NOTE | 2019-01-06 15:02 | PN ---
Subjective Date of Service: 01/06/19 Interval History: Attempted to use CPAP overnight but was not comfortable and tubing became disconnected at which point she was reportedly Sating in the 50s. She does not like it and thinks it made her anxious. Afebrile Net negative 1.2L, OUTREACH LIAISON steady. Intermittently coughing jags, about 4x today, non productive Less paranoid today. Was Sat ~90% on RA. We walked in [place] and maintained Sat for about 10 yards but then started to desat (she also got some discomfort in her left mid back) to as low as 79% at end end of about 20 yards. Placed on 1L and sat recovered to 90%, dropped to 84% on 1L on return trip. 91% on 1L back in chair at rest. Objective Active Medications: Albuterol/Ipratropium (Duoneb (Albuterol 2.5 Mg/Ipratropium 0.5 Mg)) 1 neb INH Q2H PRN PRN Reason: SOB/WHEEZING Atorvastatin Calcium (Lipitor*) 80 mg PO DAILY [facility] Last Admin: 01/06/19 09:56 Dose: 80 mg Dextrose (Dextrose 50% Vial 50 Ml*) 25 ml IV PUSH .FOR FS < 60 - SS PRN PRN Reason: FS < 60 Docusate Sodium (Colace Cap*) 100 mg PO DAILY [facility] Last Admin: 01/06/19 09:58 Dose: 100 mg Fluticasone Propionate (Flonase Nasal [place] 50mcg*) 2 spray BOTH NARES DAILY PRN PRN Reason: CONGESTION Furosemide (Lasix Iv*) 40 mg IV DAILY [facility] Last Admin: 01/06/19 09:58 Dose: 40 mg Guaifenesin (Mucinex*) 600 mg PO BID [facility] Last Admin: 01/06/19 09:57 Dose: 600 mg Ceftriaxone Sodium 1 gm/ (Sodium Chloride) 50 mls @ 100 mls/hr IVPB Q24H [facility] Last Admin: 01/05/19 17:47 Dose: 100 mls/hr Azithromycin (Zithromax 500 Mg/250 Ml) 500 mg in 250 mls @ 250 mls/hr IVPB Q24H [facility] Stop: 01/07/19 15:59 Last Admin: 01/05/19 16:20 Dose: 250 mls/hr Insulin Glargine (Lantus(*)) 35 units SUBCUT Q24H [facility] Last Admin: 01/05/19 20:11 Dose: 35 unit Insulin Glargine (Lantus(*)) 65 units SUBCUT Q24H [facility] Last Admin: 01/06/19 10:03 Dose: 65 units Insulin Human Lispro (Humalog*) 0 units SUBCUT ACHS [facility]; Protocol Last Admin: 01/06/19 12:53 Dose: 6 units Melatonin (Melatonin) 3 mg PO BEDTIME [facility] Last Admin: 01/05/19 20:12 Dose: 3 mg Mometasone Furoate/Formoterol Fumar (Dulera 200/5 Mdi*) 2 puff INH BID [facility] Last Admin: 01/06/19 08:16 Dose: 2 puff Multivitamins/Minerals (Theragran/Minerals Tab*) 1 tab PO DAILY [facility] Last Admin: 01/06/19 09:57 Dose: 1 tab Nystatin (Nystatin Cream*) 1 applic TOPICAL BID PRN PRN Reason: RASH Last Admin: 01/05/19 21:12 Dose: 1 applic Pantoprazole Sodium (Protonix Tab*) 40 mg PO DAILY [facility] Last Admin: 01/06/19 09:57 Dose: 40 mg Ramipril (Altace Cap*) 10 mg PO DAILY [facility] Last Admin: 01/06/19 09:58 Dose: 10 mg Rivaroxaban (Xarelto(*)) 15 mg PO BID WITH MEALS [facility] Stop: 01/24/19 08:01 Last Admin: 01/06/19 09:56 Dose: 15 mg Tiotropium [place] (Spiriva Respimat 2.5 Mcg) 2 puff INH DAILY [facility] Last Admin: 01/06/19 08:17 Dose: 2 puff Vital Signs - 8 hr 01/06/19 01/06/19 01/06/19 07:15 08:00 08:19 Temperature 98.3 F Pulse Rate 72 76 Respiratory 18 18 16 Rate Blood Pressure 137/62 (mmHg) O2 Sat by Pulse 91 97 Oximetry 01/06/19 11:15 Temperature 98.2 F Pulse Rate 77 Respiratory 18 Rate Blood Pressure 140/64 (mmHg) O2 Sat by Pulse 93 Oximetry Oxygen Devices in Use Now: Nasal Cannula Appearance: NAD Eyes: No Scleral Icterus Ears/Nose/Mouth/Throat: NL Teeth, Lips, Gums Neck: NL Appearance and Movements; NL JVP Respiratory: Symmetrical Chest Expansion and Respiratory Effort Cardiovascular: NL Sounds; No Murmurs; No JVD, RRR Abdominal: NL Sounds; No Tenderness; No Distention Extremities: - - trace edema b/l Neurological: Alert and Oriented x 3, NL Sensation Nutrition: Taking PO's Result Diagrams: 01/06/19 05:55 01/06/19 05:53 Additional Lab and Data: Laboratory Results - last 24 hr 01/05/19 01/05/19 01/06/19 16:14 19:45 05:53 WBC RBC Hgb Hct MCV MCH MCHC RDW Plt Count MPV Neut % (Auto) Lymph % (Auto) [place] % (Auto) Eos % (Auto) Baso % (Auto) Absolute Neuts (auto) Absolute Lymphs (auto) Absolute Monos (auto) Absolute Eos (auto) Absolute Basos (auto) Absolute Nucleated RBC Nucleated RBC % Sodium 140 Potassium 4.0 Chloride 97 L Carbon Dioxide 36 H Anion Gap 7 BUN 21 Creatinine 0.74 Est GFR ( Amer) 95.6 Est GFR (Non-Af Amer) 79.0 BUN/Creatinine Ratio 28.4 H Glucose 163 H POC Glucose (mg/dL) 238 H 278 H Calcium 9.6 Ammonia 01/06/19 01/06/19 01/06/19 05:53 05:55 08:02 WBC 9.3 RBC 5.76 H Hgb 11.8 L Hct 39 MCV 67 L MCH 21 L MCHC 31 RDW 22 H Plt Count 296 MPV 8.4 Neut % (Auto) 65.6 Lymph % (Auto) 24.5 [place] % (Auto) 6.8 Eos % (Auto) 1.9 Baso % (Auto) 1.2 Absolute Neuts (auto) 6.1 Absolute Lymphs (auto) 2.3 Absolute Monos (auto) 0.6 Absolute Eos (auto) 0.2 Absolute Basos (auto) 0.1 Absolute Nucleated RBC 0.0 Nucleated RBC % 0.0 Sodium Potassium Chloride Carbon Dioxide Anion Gap BUN Creatinine Est GFR ( Amer) Est GFR (Non-Af Amer) BUN/Creatinine Ratio Glucose POC Glucose (mg/dL) 160 H Calcium Ammonia 29 01/06/19 11:53 WBC RBC Hgb Hct MCV MCH MCHC RDW Plt Count MPV Neut % (Auto) Lymph % (Auto) [place] % (Auto) Eos % (Auto) Baso % (Auto) Absolute Neuts (auto) Absolute Lymphs (auto) Absolute Monos (auto) Absolute Eos (auto) Absolute Basos (auto) Absolute Nucleated RBC Nucleated RBC % Sodium Potassium Chloride Carbon Dioxide Anion Gap BUN Creatinine Est GFR ( Amer) Est GFR (Non-Af Amer) BUN/Creatinine Ratio Glucose POC Glucose (mg/dL) 233 H Calcium Ammonia Microbiology and Other Data: Microbiology 01/05/19 00:35 Urine Urine Culture - Final No Growth (<1,000 CFU/mL) Assess/Plan/Problems-Billing Assessment: 63 yo female PMH super morbid obesity, COPD, ELIZABETH, likely obesity hypoventilation syndrome, chronic nocturnal respiratory failure (2L), IDDM, and recent subsegmental PE p/w confusion and paranoia. Hypoxia with ambulation. Being tx CHF and COPD exacerbation - Patient Problems (1) Encephalopathy Current Visit: Yes Status: Acute Code(s): G93.40 - ENCEPHALOPATHY, UNSPECIFIED SNOMED Code(s): 94536867 Comment: DDx steroid induced psychosis, UTI, hypercapnia (not seen on VBG but certainly at risk given obesity hypoventilation, especially at night). less likely CVA but could consider non contrast CTH if not continues to improve. Even better today so will hold off. No focal neurological deficits (2) Diastolic CHF Current Visit: Yes Status: Acute Code(s): I50.30 - UNSPECIFIED DIASTOLIC ( CONGESTIVE) HEART FAILURE SNOMED Code(s): 140883461 Comment: recent ECHO with grade 1 diastolic dysfunction. CXR consistent with interstitial edema. lower extremity edema improving but still desat with ambulation. continue lasix 40mg IV daily. Home dose is lasix 20mg po daily daily weights (falling 115.6 -> 113.8), strict io (3) COPD (chronic obstructive pulmonary disease) Current Visit: No Status: Acute Code(s): J44.9 - CHRONIC OBSTRUCTIVE PULMONARY DISEASE, UNSPECIFIED SNOMED Code(s): 39741910 Comment: - was not compliant with addition of spiriva on discharge and overall had been reticent to add meds/inhalers. - Patient has a 50 pack/year history and quit in 2009. - Continue duo nebs q4hr prn. - Continue dulera - last PFTS were in 2009 that I can see, no e/o obstruction. - continue cftx and azithromycin. Recent sputum culture with moraxella catarrhalis - avoiding steroids if possible given paranoia (4) UTI (urinary tract infection) Current Visit: No Status: Acute Comment: - Urine culture growing Ecoli 75- 100k on 12/30 but was asymptomatic and not treated. On cftx here given encephalopathy. (5) Pulmonary embolism Current Visit: Yes Status: Acute Code(s): I26.99 - OTHER PULMONARY EMBOLISM WITHOUT ACUTE COR PULMONALE SNOMED Code(s): 92397208 Comment: continue xarelto 15mg BID limited to only subsegmental in right middle lobe. not clearly provoked. (6) Hypertension Current Visit: No Status: Acute Code(s): I10 - ESSENTIAL (PRIMARY) HYPERTENSION SNOMED Code(s): 36462361 Comment: continue ramipril 10mg SBP 130-140s (7) Morbid obesity Current Visit: No Status: Acute Code(s): E66.01 - MORBID (SEVERE) OBESITY DUE TO EXCESS CALORIES SNOMED Code(s): 944343947 Comment: - BMI 45.8 (8) ELIZABETH (obstructive sleep apnea) Current Visit: No Status: Acute Priority: Medium Code(s): G47.33 - OBSTRUCTIVE SLEEP APNEA (ADULT) (PEDIATRIC) SNOMED Code(s): 69718271 Comment: 2L at night at home. Does not using CPAP at home (she lost it long ago and does not like it) - will trial again tonight, did not tolerate last night (9) Type 2 diabetes mellitus Current Visit: No Status: Acute Comment: - Continue lantus and lispro - Carb control diet Status and Disposition: medicine inpatient. Improving
[2019-01-06] MEDS: Azithromycin 500 mg/250 ml NS 500 MG/250 ML BAG IVPB SCH (16:18)
[2019-01-06 19:28] LABS: Cyclic Citrullinated Peptide <15.6 U
[2019-01-06] MEDS: cefTRIAXone(*) 1 GM in NS 0.9% 50 ML* 50 ML IVPB SCH (19:55)
[2019-01-06] MEDS: Melatonin 3 MG TAB PO SCH (20:56)
[2019-01-07 07:05] LABS: ABS Basophils 0.1 10^3/ul (0-0.2); ABS Eosinophils 0.2 10^3/ul (0-0.6); ABS Lymphocytes 1.8 10^3/ul (1.0-4.8); ABS Monocytes 0.6 10^3/ul (0-0.8); Eosinophil % 2.2 %; Hematocrit 37 % (35-47); Hemoglobin 11.4 g/dL (12.0-16.0); Lymphocyte % 21.2 %; Mean Corpuscular HGB Conc 31 g/dL (31-36); Mean Corpuscular Hemoglobin 21 pg (27-31); Mean Corpuscular Volume 67 fL (80-97); Mean Platelet Volume 9.3 fL (7.4-10.4); Platelet Count 254 10^3/uL (150-450); Red Blood Count 5.54 10^6 /uL (3.70-4.87); Red Cell Distribution Width 23 % (10-15); White Blood Count 8.7 10^3/uL (3.5-10.8)
[2019-01-07 07:10] LABS: BUN/Creatinine Ratio 32.4 (8-20); Calcium 9.4 mg/dL (8.6-10.3); EGFR African American 105.4 (>60); EGFR Non-African American 87.1 (>60); Potassium 3.9 mmol/L (3.5-5.0)
[2019-01-07] MEDS: SPIRIVA Respimat* (tiotropium) 2.5 mcg/inh Inhaler INH SCH (08:16)
[2019-01-07] MEDS: Mometasone/Formoter 200/5 MDI INH SCH ×2 (08:16→19:19)
[2019-01-07] MEDS: Insulin LISPRO* 1 UNITS UNIT SUBCUT SCH ×4 (09:09→20:46)
[2019-01-07] MEDS: Atorvastatin* 80 MG TAB PO SCH (09:10)
[2019-01-07] MEDS: guaiFENesin ER TAB 600 MG PO SCH ×2 (09:10→20:47)
[2019-01-07] MEDS: Multivitamins/Minerals TAB PO SCH (09:10)
[2019-01-07] MEDS: Furosemide IV* 10 MG/ML VIAL (40 MG) IV SCH (09:10)
[2019-01-07] MEDS: Insulin GLARGINE(*) 1 UNITS UNIT SUBCUT SCH ×2 (09:10→20:46)
[2019-01-07] MEDS: Pantoprazole TAB * 40 MG TAB PO SCH (09:10)
[2019-01-07] MEDS: Docusate CAP* 100 MG PO SCH (09:10)
[2019-01-07] MEDS: Rivaroxaban TAB(*) 15 MG PO SCH ×2 (09:11→17:17)
[2019-01-07] MEDS: Ramipril CAP* 10 MG PO SCH (09:11)
--- NOTE | 2019-01-07 15:24 | PN ---
Subjective Date of Service: 01/07/19 Interval History: Patient had no complain, felt back to herself. She required O2 3L/min , and required O2 during ambulation. Objective Active Medications: Albuterol/Ipratropium (Duoneb (Albuterol 2.5 Mg/Ipratropium 0.5 Mg)) 1 neb INH Q2H PRN PRN Reason: SOB/WHEEZING Atorvastatin Calcium (Lipitor*) 80 mg PO DAILY [facility] Last Admin: 01/07/19 09:10 Dose: 80 mg Dextrose (Dextrose 50% Vial 50 Ml*) 25 ml IV PUSH .FOR FS < 60 - SS PRN PRN Reason: FS < 60 Docusate Sodium (Colace Cap*) 100 mg PO DAILY [facility] Last Admin: 01/07/19 09:10 Dose: 100 mg Fluticasone Propionate (Flonase Nasal [place] 50mcg*) 2 spray BOTH NARES DAILY PRN PRN Reason: CONGESTION Furosemide (Lasix Iv*) 40 mg IV DAILY [facility] Last Admin: 01/07/19 09:10 Dose: 40 mg Guaifenesin (Mucinex*) 600 mg PO BID [facility] Last Admin: 01/07/19 09:10 Dose: 600 mg Ceftriaxone Sodium 1 gm/ (Sodium Chloride) 50 mls @ 100 mls/hr IVPB Q24H [facility] Last Admin: 01/06/19 19:55 Dose: 100 mls/hr Azithromycin (Zithromax 500 Mg/250 Ml) 500 mg in 250 mls @ 250 mls/hr IVPB Q24H [facility] Stop: 01/07/19 15:59 Last Admin: 01/06/19 16:18 Dose: 250 mls/hr Insulin Glargine (Lantus(*)) 35 units SUBCUT Q24H [facility] Last Admin: 01/06/19 20:56 Dose: 35 unit Insulin Glargine (Lantus(*)) 65 units SUBCUT Q24H [facility] Last Admin: 01/07/19 09:10 Dose: 65 units Insulin Human Lispro (Humalog*) 0 units SUBCUT ACHS [facility]; Protocol Last Admin: 01/07/19 12:46 Dose: 3 units Melatonin (Melatonin) 3 mg PO BEDTIME [facility] Last Admin: 01/06/19 20:56 Dose: 3 mg Mometasone Furoate/Formoterol Fumar (Dulera 200/5 Mdi*) 2 puff INH BID [facility] Last Admin: 01/07/19 08:16 Dose: 2 puff Multivitamins/Minerals (Theragran/Minerals Tab*) 1 tab PO DAILY [facility] Last Admin: 01/07/19 09:10 Dose: 1 tab Nystatin (Nystatin Cream*) 1 applic TOPICAL BID PRN PRN Reason: RASH Last Admin: 01/05/19 21:12 Dose: 1 applic Pantoprazole Sodium (Protonix Tab*) 40 mg PO DAILY [facility] Last Admin: 01/07/19 09:10 Dose: 40 mg Ramipril (Altace Cap*) 10 mg PO DAILY [facility] Last Admin: 01/07/19 09:11 Dose: 10 mg Rivaroxaban (Xarelto(*)) 15 mg PO BID WITH MEALS [facility] Stop: 01/24/19 08:01 Last Admin: 01/07/19 09:11 Dose: 15 mg Tiotropium [place] (Spiriva Respimat 2.5 Mcg) 2 puff INH DAILY [facility] Last Admin: 01/07/19 08:16 Dose: 2 puff Vital Signs - 8 hr 01/07/19 01/07/19 01/07/19 07:45 08:00 08:18 Temperature 98.6 F Pulse Rate 71 72 Respiratory 20 18 16 Rate Blood Pressure 120/53 (mmHg) O2 Sat by Pulse 89 95 Oximetry 01/07/19 11:21 Temperature 98.6 F Pulse Rate 81 Respiratory 20 Rate Blood Pressure 122/60 (mmHg) O2 Sat by Pulse 88 Oximetry Oxygen Devices in Use Now: Nasal Cannula Exam: Appearance: NAD Eyes: No Scleral Icterus Ears/Nose/Mouth/Throat: NL Teeth, Lips, Gums Neck: NL Appearance and Movements; NL JVP Respiratory: Symmetrical Chest Expansion and Respiratory Effort Cardiovascular: NL Sounds; No Murmurs; No JVD, RRR Abdominal: NL Sounds; No Tenderness; No Distention Extremities: - - trace edema b/l Neurological: Alert and Oriented x 3 Nutrition: Taking PO's Result Diagrams: 01/07/19 06:34 01/07/19 06:34 Additional Lab and Data: Laboratory Results - last 24 hr 01/05/19 01/05/19 01/06/19 16:14 19:45 05:53 WBC RBC Hgb Hct MCV MCH MCHC RDW Plt Count MPV Neut % (Auto) Lymph % (Auto) [place] % (Auto) Eos % (Auto) Baso % (Auto) Absolute Neuts (auto) Absolute Lymphs (auto) Absolute Monos (auto) Absolute Eos (auto) Absolute Basos (auto) Absolute Nucleated RBC Nucleated RBC % Sodium 140 Potassium 4.0 Chloride 97 L Carbon Dioxide 36 H Anion Gap 7 BUN 21 Creatinine 0.74 Est GFR ( Amer) 95.6 Est GFR (Non-Af Amer) 79.0 BUN/Creatinine Ratio 28.4 H Glucose 163 H POC Glucose (mg/dL) 238 H 278 H Calcium 9.6 Ammonia 01/06/19 01/06/19 01/06/19 05:53 05:55 08:02 WBC 9.3 RBC 5.76 H Hgb 11.8 L Hct 39 MCV 67 L MCH 21 L MCHC 31 RDW 22 H Plt Count 296 MPV 8.4 Neut % (Auto) 65.6 Lymph % (Auto) 24.5 [place] % (Auto) 6.8 Eos % (Auto) 1.9 Baso % (Auto) 1.2 Absolute Neuts (auto) 6.1 Absolute Lymphs (auto) 2.3 Absolute Monos (auto) 0.6 Absolute Eos (auto) 0.2 Absolute Basos (auto) 0.1 Absolute Nucleated RBC 0.0 Nucleated RBC % 0.0 Sodium Potassium Chloride Carbon Dioxide Anion Gap BUN Creatinine Est GFR ( Amer) Est GFR (Non-Af Amer) BUN/Creatinine Ratio Glucose POC Glucose (mg/dL) 160 H Calcium Ammonia 29 01/06/19 11:53 WBC RBC Hgb Hct MCV MCH MCHC RDW Plt Count MPV Neut % (Auto) Lymph % (Auto) [place] % (Auto) Eos % (Auto) Baso % (Auto) Absolute Neuts (auto) Absolute Lymphs (auto) Absolute Monos (auto) Absolute Eos (auto) Absolute Basos (auto) Absolute Nucleated RBC Nucleated RBC % Sodium Potassium Chloride Carbon Dioxide Anion Gap BUN Creatinine Est GFR ( Amer) Est GFR (Non-Af Amer) BUN/Creatinine Ratio Glucose POC Glucose (mg/dL) 233 H Calcium Ammonia Microbiology and Other Data: Microbiology 01/05/19 00:35 Urine Urine Culture - Final No Growth (<1,000 CFU/mL) Assess/Plan/Problems-Billing Assessment: 63 yo female PMH super morbid obesity, COPD, ELIZABETH, likely obesity hypoventilation syndrome, chronic nocturnal respiratory failure (2L), IDDM, and recent subsegmental PE p/w confusion and paranoia. Hypoxia with ambulation. Being tx CHF and COPD exacerbation - Patient Problems (1) Diastolic CHF Current Visit: Yes Status: Acute Code(s): I50.30 - UNSPECIFIED DIASTOLIC ( CONGESTIVE) HEART FAILURE SNOMED Code(s): 646681313 Comment: recent ECHO with grade 1 diastolic dysfunction. CXR consistent with interstitial edema. lower extremity edema improving but still desat with ambulation. continue lasix 40mg IV daily. Home dose is lasix 20mg po daily daily weights, strict io (2) COPD (chronic obstructive pulmonary disease) Current Visit: No Status: Acute Code(s): J44.9 - CHRONIC OBSTRUCTIVE PULMONARY DISEASE, UNSPECIFIED SNOMED Code(s): 21685343 Comment: - possible COPD exacerbation - was not compliant with addition of spiriva on discharge and overall had been reticent to add meds/inhalers. - Patient has a 50 pack/year history and quit in 2009. - Continue duo nebs q4hr prn. - Continue dulera - last PFTS were in 2009 that I can see, no e/o obstruction. - continue cftx and azithromycin. Recent sputum culture with moraxella catarrhalis - avoiding steroids if possible given paranoia (3) Encephalopathy Current Visit: Yes Status: Acute Code(s): G93.40 - ENCEPHALOPATHY, UNSPECIFIED SNOMED Code(s): 11523392 Comment: DDx steroid induced psychosis, UTI, hypercapnia (not seen on VBG but certainly at risk given obesity hypoventilation, especially at night). resolved now. (4) Pulmonary embolism Current Visit: Yes Status: Acute Code(s): I26.99 - OTHER PULMONARY EMBOLISM WITHOUT ACUTE COR PULMONALE SNOMED Code(s): 62630598 Comment: continue xarelto 15mg BID limited to only subsegmental in right middle lobe. not clearly provoked. (5) Hypertension Current Visit: No Status: Acute Code(s): I10 - ESSENTIAL (PRIMARY) HYPERTENSION SNOMED Code(s): 20100191 Comment: continue ramipril 10mg SBP 130-140s (6) Morbid obesity Current Visit: No Status: Acute Code(s): E66.01 - MORBID (SEVERE) OBESITY DUE TO EXCESS CALORIES SNOMED Code(s): 547795823 Comment: - BMI 45.8 (7) ELIZABETH (obstructive sleep apnea) Current Visit: No Status: Acute Priority: Medium Code(s): G47.33 - OBSTRUCTIVE SLEEP APNEA (ADULT) (PEDIATRIC) SNOMED Code(s): 56096459 Comment: 2L at night at home. Does not using CPAP at home (she lost it long ago and does not like it) - will trial again tonight, did not tolerate last night (8) Type 2 diabetes mellitus Current Visit: No Status: Acute Comment: - Continue lantus and lispro - Carb control diet (9) UTI (urinary tract infection) Current Visit: No Status: Acute Comment: - Urine culture growing Ecoli 75- 100k on 12/30 but was asymptomatic and not treated. on ceftriaxone for possible lung infection Status and Disposition: medicine inpatient. Need social security assessor consult tomorrow to explore NH vs independent living, patient feels scared to go home as alcoholic. Attestation Documenting Resident: Estlele Cheek Supervising Physician: Dwain Gallego Attending/Supervising Physician Comment: She attests that she generally does not feel safe at home given her 's chronic alcoholism with many verbal threats against her and her family members. This increases her anxiety and she basically leaves each day to go elsewhere to return at night. Pt interested in alternate living situation and if forced to return home will need supplemental oxygen tanks with to use with ambulation/ exertion on discharge as her portable unit will last a max of 3-4 hours on a charge. Attestation: This service has been performed in part by a resident under the direction of a teaching physician.I, Dwain Gallego, performed the service, or was physically present during the critical, or ponce portions of the service, furnished by the resident. I participated in the management of the patient.
[2019-01-07] MEDS: cefTRIAXone(*) 1 GM in NS 0.9% 50 ML* 50 ML IVPB SCH (17:18)
[2019-01-07] MEDS: Melatonin 3 MG TAB PO SCH (20:47)
[2019-01-07] MEDS: Nystatin CREAM* 15 GM TUBE TOPICAL PRN (21:24)
[2019-01-08 06:55] LABS: ABS Basophils 0.1 10^3/ul (0-0.2); ABS Eosinophils 0.2 10^3/ul (0-0.6); ABS Monocytes 0.6 10^3/ul (0-0.8); Hematocrit 38 % (35-47); Hemoglobin 11.6 g/dL (12.0-16.0); Lymphocyte % 19.9 %; Mean Corpuscular HGB Conc 31 g/dL (31-36); Mean Corpuscular Hemoglobin 21 pg (27-31); Mean Corpuscular Volume 67 fL (80-97); Platelet Count 250 10^3/uL (150-450); Red Blood Count 5.64 10^6 /uL (3.70-4.87); Red Cell Distribution Width 23 % (10-15); White Blood Count 9.8 10^3/uL (3.5-10.8)
[2019-01-08 07:09] LABS: BUN/Creatinine Ratio 35.5 (8-20); Calcium 9.5 mg/dL (8.6-10.3); EGFR African American 92.7 (>60); EGFR Non-African American 76.6 (>60); Potassium 3.9 mmol/L (3.5-5.0)
[2019-01-08] MEDS: SPIRIVA Respimat* (tiotropium) 2.5 mcg/inh Inhaler INH SCH (07:54)
[2019-01-08] MEDS: Mometasone/Formoter 200/5 MDI INH SCH ×2 (07:54→20:03)
[2019-01-08] MEDS: Insulin LISPRO* 1 UNITS UNIT SUBCUT SCH ×4 (08:21→21:19)
[2019-01-08] MEDS: Atorvastatin* 80 MG TAB PO SCH (08:27)
[2019-01-08] MEDS: Ramipril CAP* 10 MG PO SCH (08:27)
[2019-01-08] MEDS: Insulin GLARGINE(*) 1 UNITS UNIT SUBCUT SCH ×2 (08:27→21:18)
[2019-01-08] MEDS: Rivaroxaban TAB(*) 15 MG PO SCH ×2 (08:27→16:42)
[2019-01-08] MEDS: Pantoprazole TAB * 40 MG TAB PO SCH (08:27)
[2019-01-08] MEDS: Docusate CAP* 100 MG PO SCH (08:27)
[2019-01-08] MEDS: guaiFENesin ER TAB 600 MG PO SCH ×2 (08:27→21:18)
[2019-01-08] MEDS: Furosemide IV* 10 MG/ML VIAL (40 MG) IV SCH (08:27)
[2019-01-08] MEDS: Multivitamins/Minerals TAB PO SCH (08:27)
[2019-01-08] MEDS: cefTRIAXone(*) 1 GM in NS 0.9% 50 ML* 50 ML IVPB SCH ×2 (16:42→17:15)
--- NOTE | 2019-01-08 18:44 | PN ---
Subjective Date of Service: 01/08/19 Interval History: Patient is feeling better. Denies cough, shortness of breth. still requiring 2 L of oxygen Objective Active Medications: Albuterol/Ipratropium (Duoneb (Albuterol 2.5 Mg/Ipratropium 0.5 Mg)) 1 neb INH Q2H PRN PRN Reason: SOB/WHEEZING Atorvastatin Calcium (Lipitor*) 80 mg PO DAILY [facility] Last Admin: 01/08/19 08:27 Dose: 80 mg Dextrose (Dextrose 50% Vial 50 Ml*) 25 ml IV PUSH .FOR FS < 60 - SS PRN PRN Reason: FS < 60 Docusate Sodium (Colace Cap*) 100 mg PO DAILY [facility] Last Admin: 01/08/19 08:27 Dose: 100 mg Fluticasone Propionate (Flonase Nasal [place] 50mcg*) 2 spray BOTH NARES DAILY PRN PRN Reason: CONGESTION Furosemide (Lasix Iv*) 40 mg IV DAILY [facility] Last Admin: 01/08/19 08:27 Dose: 40 mg Guaifenesin (Mucinex*) 600 mg PO BID [facility] Last Admin: 01/08/19 08:27 Dose: 600 mg Ceftriaxone Sodium 1 gm/ (Sodium Chloride) 50 mls @ 100 mls/hr IVPB Q24H [facility] Last Admin: 01/08/19 17:15 Dose: 100 mls/hr Insulin Glargine (Lantus(*)) 35 units SUBCUT Q24H [facility] Last Admin: 01/07/19 20:46 Dose: 35 unit Insulin Glargine (Lantus(*)) 65 units SUBCUT Q24H [facility] Last Admin: 01/08/19 08:27 Dose: 65 units Insulin Human Lispro (Humalog*) 0 units SUBCUT ACHS [facility]; Protocol Last Admin: 01/08/19 16:42 Dose: 3 units Melatonin (Melatonin) 3 mg PO BEDTIME [facility] Last Admin: 01/07/19 20:47 Dose: 3 mg Mometasone Furoate/Formoterol Fumar (Dulera 200/5 Mdi*) 2 puff INH BID [facility] Last Admin: 01/08/19 07:54 Dose: 2 puff Multivitamins/Minerals (Theragran/Minerals Tab*) 1 tab PO DAILY [facility] Last Admin: 01/08/19 08:27 Dose: 1 tab Nystatin (Nystatin Cream*) 1 applic TOPICAL BID PRN PRN Reason: RASH Last Admin: 01/07/19 21:24 Dose: 1 applic Nystatin (Nystatin Top Powder*) 1 applic TOPICAL BID [facility] Pantoprazole Sodium (Protonix Tab*) 40 mg PO DAILY [facility] Last Admin: 01/08/19 08:27 Dose: 40 mg Ramipril (Altace Cap*) 10 mg PO DAILY [facility] Last Admin: 01/08/19 08:27 Dose: 10 mg Rivaroxaban (Xarelto(*)) 15 mg PO BID WITH MEALS [facility] Stop: 01/24/19 08:01 Last Admin: 01/08/19 16:42 Dose: 15 mg Tiotropium [place] (Spiriva Respimat 2.5 Mcg) 2 puff INH DAILY [facility] Last Admin: 01/08/19 07:54 Dose: 2 puff Vital Signs - 8 hr 01/08/19 01/08/19 11:15 14:52 Temperature 97.9 F 98.9 F Pulse Rate 77 79 Respiratory 18 20 Rate Blood Pressure 119/54 102/53 (mmHg) O2 Sat by Pulse 92 91 Oximetry Oxygen Devices in Use Now: Nasal Cannula Exam: Appearance: NAD Eyes: No Scleral Icterus Ears/Nose/Mouth/Throat: NL Teeth, Lips, Gums Neck: NL Appearance and Movements; NL JVP Respiratory: Symmetrical Chest Expansion and Respiratory Effort Cardiovascular: NL Sounds; No Murmurs; No JVD, RRR Abdominal: NL Sounds; No Tenderness; No Distention Extremities: - - trace edema b/l Neurological: Alert and Oriented x 3 Nutrition: Taking PO's Result Diagrams: 01/08/19 06:39 01/08/19 06:39 Additional Lab and Data: Laboratory Results - last 24 hr 01/05/19 01/05/19 01/06/19 16:14 19:45 05:53 WBC RBC Hgb Hct MCV MCH MCHC RDW Plt Count MPV Neut % (Auto) Lymph % (Auto) [place] % (Auto) Eos % (Auto) Baso % (Auto) Absolute Neuts (auto) Absolute Lymphs (auto) Absolute Monos (auto) Absolute Eos (auto) Absolute Basos (auto) Absolute Nucleated RBC Nucleated RBC % Sodium 140 Potassium 4.0 Chloride 97 L Carbon Dioxide 36 H Anion Gap 7 BUN 21 Creatinine 0.74 Est GFR ( Amer) 95.6 Est GFR (Non-Af Amer) 79.0 BUN/Creatinine Ratio 28.4 H Glucose 163 H POC Glucose (mg/dL) 238 H 278 H Calcium 9.6 Ammonia 01/06/19 01/06/19 01/06/19 05:53 05:55 08:02 WBC 9.3 RBC 5.76 H Hgb 11.8 L Hct 39 MCV 67 L MCH 21 L MCHC 31 RDW 22 H Plt Count 296 MPV 8.4 Neut % (Auto) 65.6 Lymph % (Auto) 24.5 [place] % (Auto) 6.8 Eos % (Auto) 1.9 Baso % (Auto) 1.2 Absolute Neuts (auto) 6.1 Absolute Lymphs (auto) 2.3 Absolute Monos (auto) 0.6 Absolute Eos (auto) 0.2 Absolute Basos (auto) 0.1 Absolute Nucleated RBC 0.0 Nucleated RBC % 0.0 Sodium Potassium Chloride Carbon Dioxide Anion Gap BUN Creatinine Est GFR ( Amer) Est GFR (Non-Af Amer) BUN/Creatinine Ratio Glucose POC Glucose (mg/dL) 160 H Calcium Ammonia 29 01/06/19 11:53 WBC RBC Hgb Hct MCV MCH MCHC RDW Plt Count MPV Neut % (Auto) Lymph % (Auto) [place] % (Auto) Eos % (Auto) Baso % (Auto) Absolute Neuts (auto) Absolute Lymphs (auto) Absolute Monos (auto) Absolute Eos (auto) Absolute Basos (auto) Absolute Nucleated RBC Nucleated RBC % Sodium Potassium Chloride Carbon Dioxide Anion Gap BUN Creatinine Est GFR ( Amer) Est GFR (Non-Af Amer) BUN/Creatinine Ratio Glucose POC Glucose (mg/dL) 233 H Calcium Ammonia Microbiology and Other Data: Microbiology 01/05/19 00:35 Urine Urine Culture - Final No Growth (<1,000 CFU/mL) Assess/Plan/Problems-Billing Assessment: 63 yo female PMH morbid obesity, COPD, ELIZABETH, likely obesity hypoventilation syndrome, chronic nocturnal respiratory failure (2L), IDDM, and recent subsegmental PE p/w confusion and paranoia. Found to have Hypoxia with ambulation, CHF and COPD exacerbation. - Patient Problems (1) Diastolic CHF Current Visit: Yes Status: Acute Code(s): I50.30 - UNSPECIFIED DIASTOLIC ( CONGESTIVE) HEART FAILURE SNOMED Code(s): 043384938 Comment: -Improving -recent ECHO with grade 1 diastolic dysfunction.(01/03) -CXR consistent with interstitial edema. -Switched to lasix 40mg PO daily. Home dose is lasix 20mg po daily -daily weights, strict io (2) Pulmonary embolism Current Visit: Yes Status: Acute Code(s): I26.99 - OTHER PULMONARY EMBOLISM WITHOUT ACUTE COR PULMONALE SNOMED Code(s): 31261459 Comment: -continue xarelto 15mg BID for 21 days then 20 mg daily limited to only subsegmental in right middle lobe. not clearly provoked. (3) COPD (chronic obstructive pulmonary disease) Current Visit: No Status: Acute Code(s): J44.9 - CHRONIC OBSTRUCTIVE PULMONARY DISEASE, UNSPECIFIED SNOMED Code(s): 65194952 Comment: - possible COPD exacerbation - was not compliant with addition of spiriva on discharge and overall had been reticent to add meds/inhalers. - Patient has a 50 pack/year history and quit in 2009. - Continue duo nebs q4hr prn. - Continue dulera - last PFTS were in 2009, no e/o obstruction. - stopped iv abx - avoiding steroids if possible given paranoia (4) Hypertension Current Visit: No Status: Acute Code(s): I10 - ESSENTIAL (PRIMARY) HYPERTENSION SNOMED Code(s): 16784104 Comment: -continue ramipril 10mg -Bp controlled (5) Morbid obesity Current Visit: No Status: Acute Code(s): E66.01 - MORBID (SEVERE) OBESITY DUE TO EXCESS CALORIES SNOMED Code(s): 301642597 Comment: - BMI 45.8 -Counselled on weight reduction (6) ELIZABETH (obstructive sleep apnea) Current Visit: No Status: Acute Priority: Medium Code(s): G47.33 - OBSTRUCTIVE SLEEP APNEA (ADULT) (PEDIATRIC) SNOMED Code(s): 38643071 Comment: -2L at night at home. -Not using CPAP at home (she lost it long ago and does not like it) - encourage to use CPAP machine (7) Type 2 diabetes mellitus Current Visit: No Status: Acute Comment: - Continue lantus and lispro - Carb control diet (8) DVT prophylaxis Current Visit: No Status: Acute Code(s): QTR4308 - SNOMED Code(s): 498669295 Comment: heparin (9) Full code status Current Visit: No Status: Acute Code(s): Z78.9 - OTHER SPECIFIED HEALTH STATUS SNOMED Code(s): 873495888 Status and Disposition: medicine inpatient. Need elementary school social worker consult to explore NH vs independent living, patient feels scared to go home as alcoholic. Interested in independent living Attending: Chey Reyes Attestation Documenting Resident: Fiona Carlson Supervising Physician: Chey Reyes Attestation: This service has been performed in part by a resident under the direction of a teaching physician.I, Chey Reyes, performed the service, or was physically present during the critical, or ponce portions of the service, furnished by the resident. I participated in the management of the patient.
[2019-01-08] MEDS: Melatonin 3 MG TAB PO SCH (21:18)
[2019-01-08] MEDS: Nystatin TOP POWDER* 15 GM BTL TOPICAL SCH (21:22)
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
[2019-01-09] MEDS ORDERED: Acetaminophen TAB* 325 MG PO ONE (07:10)
[2019-01-09] MEDS: Insulin LISPRO* 1 UNITS UNIT SUBCUT SCH ×3 (07:43→16:17)
[2019-01-09] MEDS: Pantoprazole TAB * 40 MG TAB PO SCH (07:52)
[2019-01-09] MEDS: Atorvastatin* 80 MG TAB PO SCH (07:52)
[2019-01-09] MEDS: guaiFENesin ER TAB 600 MG PO SCH (07:52)
[2019-01-09] MEDS: Docusate CAP* 100 MG PO SCH (07:52)
[2019-01-09] MEDS: Ramipril CAP* 10 MG PO SCH (07:53)
[2019-01-09] MEDS: Rivaroxaban TAB(*) 15 MG PO SCH ×2 (07:53→16:26)
[2019-01-09] MEDS: Nystatin TOP POWDER* 15 GM BTL TOPICAL SCH (07:53)
[2019-01-09] MEDS: Multivitamins/Minerals TAB PO SCH (07:53)
[2019-01-09] MEDS: Insulin GLARGINE(*) 1 UNITS UNIT SUBCUT SCH (07:53)
[2019-01-09] MEDS: Mometasone/Formoter 200/5 MDI INH SCH (08:10)
[2019-01-09] MEDS: SPIRIVA Respimat* (tiotropium) 2.5 mcg/inh Inhaler INH SCH (08:10)
[2019-01-09] MEDS ORDERED: Furosemide TAB* 40 MG PO SCH (09:00)
[2019-01-09] MEDS ORDERED: Ferrous Sulfate TAB* 325 MG PO SCH (09:00)
[2019-01-09 12:07] VITALS: BP 125/35
--- OUTSIDE RECORDS SUMMARY | 2019-01-09 14:27 | XMS REPORT ---
:1955 Author Organization [facility] Care Team Providers Name Role Phone Unavailable Unavailable Unavailable Problems This patient has no known problems. Allergies, Adverse Reactions, Alerts Allergy Allergy Status Severity Reaction(s) Onset Inactive Treating Comments Name Type Date Date Clinician Uncoded Unknown Active Unknown Reaction 2018-12 Interface free-text Unknown -29 allergy Medications Ordered Filled Start Stop Current Ordering Indication Dosage Frequency Signature Comments Components Medication Medication Date Date Medication? Clinician (SIG) Name Name No Known No Known No None None None Medications Medications For This For This Patient Patient Procedures This patient has no known procedures. Results This patient has no known results.
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
== END 2019-01-09 16:30 | disposition home health service (06) | DRG 194 ==
LOC: ED 11:13 → MEDTELE 15:55 → OBSVTOIN 01-05 11:00 → UNDODISIN 01-09 17:01
PROVIDERS: ADMIT Internal Medicine; ATTEND Internal Medicine
DX: I50.33 Acute on chronic diastolic (congestive) heart failure (principal); I26.99 Other pulmonary embolism without acute cor pulmonale; G93.40 Encephalopathy, unspecified; J96.11 Chronic respiratory failure with hypoxia; J44.1 Chronic obstructive pulmonary disease with (acute) exacerbation; N39.0 Urinary tract infection, site not specified; E66.2 Morbid (severe) obesity with alveolar hypoventilation; Z68.42 Body mass index [BMI] 45.0-49.9, adult; E11.9 Type 2 diabetes mellitus without complications; M54.5 Low back pain; B96.20 Unspecified Escherichia coli [E. coli] as the cause of diseases classified elsewhere; Z99.81 Dependence on supplemental oxygen; Z79.4 Long term (current) use of insulin; Z85.42 Personal history of malignant neoplasm of other parts of uterus; Z79.01 Long term (current) use of anticoagulants; Z79.84 Long term (current) use of oral hypoglycemic drugs; Z79.51 Long term (current) use of inhaled steroids; Z79.899 Other long term (current) drug therapy; Z82.49 Family history of ischemic heart disease and other diseases of the circulatory system; Z82.5 Family history of asthma and other chronic lower respiratory diseases; Z87.891 Personal history of nicotine dependence
CPT/HCPCS: 36415; 71046; 80048; 80053; 80307; 81003; 81015; 82140; 82803; 83880; 84439; 84443; 84484; 85025; 85652; 86038; 86140; 86200; 87086; 87899; 93005; 94640; 94660; 96374; 99284; A9270-GY; G0378; G8978-GP-CI; G8979-GP-CI; G8980-GP-CI; J0456; J0696; J1630; J1815; J1940; J2930; J3535

== ENCOUNTER 2019-01-10 00:33 | Emergency (ER) | payer OTHER ==
--- NOTE | 2019-01-10 07:29 | ED ---
Progress - Progress Note Progress Note: The patient is a sign-out from Dr. Indra Mcmahan MD, to Dr. Chacorta Kelly MD, at change of shift at 0700 on 01/10/2019, pending social work consult and disposition. Litzy from [employer] came to speak with the patient. She has planned for the patient to receive Meals on Wheels while staying at her daughter's house. She was given the [facility] for [facility]. Patient understands and agrees with the plan. Course/Dx - Course Course Of Treatment: The patient is a sign-out from Dr. Indra Mcmahan MD, to Dr. Chacorta Kelly MD, at change of shift at 0700 on 01/10/2019, pending social work consult and disposition. Litzy from [employer] spoke with the patient to determine plan for discharge home to her daughter's house with Meals on Wheels. She was also given the number for the [facility]. Patient understands and agrees with plan. - Diagnoses Provider Diagnoses: Social problem Discharge ED - Sign-Out/Discharge Documenting (check all that apply): Patient Departure - Patient will be discharged home., Receiving Sign-Out Receiving patient FROM: Indra Mcmahan - Patient is a sign-out from Dr. Indra Mcmahan MD, at 0700 on 01/10/2019, pending social work consult and disposition. - Discharge Plan Condition: Stable Disposition: HOME Patient Education Materials: Back Pain (ED) Referrals: [facility] [Outside] [facility] [Outside] [facility] [Outside] Yong Crocker MD [Primary Care Provider] - 3 Days Additional Instructions: Litzy from [employer] has given you more information concerning the plan you have going forward. Follow up with your primary care provider in 2-3 days. Return to the emergency department for any new or worsening symptoms. - Billing Disposition and Condition Condition: STABLE Disposition: Home - Attestation Statements Document Initiated by Scribe: Yes Documenting Scribe: Sandra Chadwick Provider For Whom Rudolph is Documenting (Include Credential): Dr. Chacorta Kelly MD Scribe Attestation: Sandra Valdes scribed for Dr. Chacorta Kelly MD on 01/10/19 at 1850. Scribe Documentation Reviewed: Yes Provider Attestation: The documentation as recorded by the Sandra wilson accurately reflects the service I personally performed and the decisions made by me, Dr. Chacorta Kelly MD Status of Scribe Document: Viewed Procedures - Sedation Patient Received Moderate/Deep Sedation with Procedure: No
--- NOTE | 2019-01-10 07:35 | ED ---
Complex/Multi-Sys Presentation - HPI Summary HPI Summary: Patient is a 63 y/o F w/ Hx of COPD who presents to [facility] for lower back pain and social complaint. She had recently been admitted to [facility] for heart failure and was discharged yesterday discharged from [facility] yesterday. Patient notes that her breathing has been "good" since discharge and states that she is on 1 L o2. Hx of panic attacks and anxiety noted. She states that she has been having issues with her and does not have a place to go if she is discharged. On triage, pain is rated 3/10, nothing is noted to aggravate/alleviate Sx. Home medications and allergies are reviewed. - History Of Current Complaint Chief Complaint: EDBackInjuryPain Time Seen by Provider: 01/10/19 03:17 Hx Obtained From: Patient Onset/Duration: Still Present Timing: Constant Severity Currently: Mild Location: Pain At: - back Aggravating Factor(s): nothing Alleviating Factor(s): nothing Associated Signs And Symptoms: Positive: Back Pain, Other - social complaint - Allergies/Home Medications Allergies/Adverse Reactions: Allergies Allergy/AdvReac Type Severity Reaction Status Date / Time No Known Allergies Allergy Verified 01/04/19 11:20 PMH/Surg Hx/FS Hx/Imm Hx Endocrine/Hematology History: Reports: Hx Diabetes Denies: Hx Anticoagulant Therapy, Hx Systemic Lupus Erythematosus, Hx Thyroid Disease, Hx Anemia, Hx Unexplained Bleeding Cardiovascular History: Reports: Hx Hypercholesterolemia, Hx Hypertension, Other Cardiovascular Problems/Disorders - afib Denies: Hx Aneurysm, Hx Angina, Hx Angioplasty, Hx Auto Implanted Cardiovert Defib, Hx Cardiac Arrest, Hx Cardiomegaly, Hx Congenital Heart Disease, Hx Congestive Heart Failure, Hx Coronary Artery Disease, Hx Deep Vein Thrombosis, Hx Embolism, Hx Hypotension, Hx Pacemaker/ICD, Hx Rheumatic Fever, Hx Syncope Respiratory History: Reports: Hx Chronic Obstructive Pulmonary Disease (COPD), Hx Pneumonia, Hx Sleep Apnea, Other Respiratory Problems/Disorders - RESPIRATORY FAILURE (per admission hx) GI History: Reports: Hx Gall Bladder Disease - removed, Other GI Disorders - umbilical hernia, constipation History: Reports: Other Problems/Disorders - per admission Hx - UTIs Denies: Hx Dialysis, Hx Renal Disease Musculoskeletal History: Reports: Hx Arthritis, Hx Back Problems - pain, Other Musculoskeletal History - sciatica, back pain Denies: Hx Rheumatoid Arthritis, Hx Osteoporosis Sensory History: Reports: Hx Contacts or Glasses - Pt does not have them with her Denies: Hx Cataracts, Hx Glaucoma, Hx Hearing Aid Opthamlomology History: Reports: Hx Contacts or Glasses - Pt does not have them with her Denies: Hx Cataracts, Hx Glaucoma Neurological History: Reports: Other Neuro Impairments/Disorders - neuropathy Denies: Hx Dementia, Hx Developmental Delay, Hx Headaches, Hx Migraine, Hx Nerve Disease, Hx Seizures, Hx Spinal Cord Injury, Hx Transient Ischemic Attacks (TIA) Psychiatric History: Reports: Hx Anxiety - active Denies: Hx Depression - Cancer History Cancer Type, Location and Year: Uterine CA Hx Chemotherapy: No Hx Radiation Therapy: Yes - Surgical History Surgery Procedure, Year, and Place: humerus repair . hysterectomy 2010 d/ t uterine cx. cholecystectomy when in her 40s. c/s. tonsilectomy Hx Anesthesia Reactions: No - Immunization History Date of Tetanus Vaccine: utd Date of Influenza Vaccine: fall 2018 Infectious Disease History: No Infectious Disease History: Denies: Hx Clostridium Difficile, Hx Hepatitis, Hx Human Immunodeficiency Virus (HIV), Hx of Known/Suspected MRSA, Hx Shingles, Hx Tuberculosis, Hx Known/ Suspected VRE, Hx Known/Suspected VRSA, History Other Infectious Disease, Traveled Outside the [place] in Last 30 Days - Family History Known Family History: Positive: Cardiac Disease - coronary artery disease, CHF, [place] Negative: Blood Disorder Family History: R & n/C - Social History Alcohol Use: None Hx Substance Use: Yes Substance Use Type: Reports: Marijuana Substance Use Comment - Amount & Last Used: Pt states she used to smoke marijuana, but hasn't in a while Hx Tobacco Use: Yes - 50 pack year history Smoking Status (MU): Former Smoker Type: Cigarettes Amount Used/How Often: 1 ppd + Length of Time of Smoking/Using Tobacco: 40 years Have You Smoked in the Last Year: No Review of Systems Constitutional: Other - positive - social complaint Negative: Fever Musculoskeletal: Other - positive - back pain All Other Systems Reviewed And Are Negative: Yes Physical Exam - Summary Physical Exam Summary: Appearance: Well-appearing, Morbidly obese, lying in bed comfortable Skin: Warm, dry, no obvious rash Eyes: sclera anicteric, no conjunctival pallor ENT: mucous membranes moist Neck: deferred Respiratory: No signs of respiratory distress Cardiovascular: Appears well perfused, pulses are nml Abdomen: deferred Musculoskeletal: Moving all 4 extremities without obvious discomfort Neurological: Awake and alert, mentation is normal, speech is fluent and appropriate Psychiatric: affect is normal, does not appear anxious or depressed Triage Information Reviewed: Yes Vital Signs On Initial Exam: Initial Vitals Temp Pulse Resp BP Pulse Ox 98.2 F 86 20 125/62 94 01/10/19 00:36 01/10/19 00:36 01/10/19 00:36 01/10/19 00:36 01/10/19 00:36 Vital Signs Reviewed: Yes Procedures - Sedation Patient Received Moderate/Deep Sedation with Procedure: No Diagnostics - Vital Signs Vital Signs Temp Pulse Resp BP Pulse Ox 01/10/19 07:00 77 99 01/10/19 06:00 73 92 01/10/19 05:41 76 135/83 96 01/10/19 05:12 75 132/71 97 01/10/19 05:00 79 96 01/10/19 04:11 74 122/55 92 01/10/19 04:00 73 94 01/10/19 03:41 73 129/56 91 01/10/19 03:12 77 146/82 97 01/10/19 03:10 74 97 01/10/19 00:36 98.2 F 86 20 125/62 94 - Laboratory Lab Statement: Any lab studies that have been ordered have been reviewed, and results considered in the medical decision making process. Complex Multi-Symp Course/Dx Course Of Treatment: Patient is a 63 y/o F w/ Hx of COPD who presents to [facility] with complaints of lower back pain. She had recently been admitted to [facility] for heart failure and was discharged yesterday discharged from [facility] yesterday. Patient notes that her breathing has been "good" since discharge and states that she is on 1 L o2. Hx of panic attacks and anxiety noted. She states that she has been having issues with her and does not have a place to go if she is discharged. 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 Patient is signed out to Dr. Stone at 0700 01/10/19 shift change pending director social welfare consult. - Diagnoses Provider Diagnoses: Social problem Discharge ED - Sign-Out/Discharge Documenting (check all that apply): Sign-Out Patient Signing out patient TO: Chacorta Stone - Discharge Plan Condition: Stable Referrals: Yong Crocker MD [Primary Care Provider] - - Attestation Statements Document Initiated by Scribe: Yes Documenting Scribe: ANGELA ORDONEZ Provider For Whom Scribe is Documenting (Include Credential): CHACORTA STONE MD Scribe Attestation: I, ANGELA ORDONEZ, scribed for CHACORTA STONE MD on 01/10/19 at 0742. Status of Scribe Document: Ready
[2019-01-10 11:34] VITALS: BP 121/74
== END 2019-01-10 08:53 | disposition home or self-care (01) ==
LOC: ED 00:33
DX: M54.9 Dorsalgia, unspecified (principal); E78.00 Pure hypercholesterolemia, unspecified; I10 Essential (primary) hypertension; J44.9 Chronic obstructive pulmonary disease, unspecified; F41.9 Anxiety disorder, unspecified; Z85.42 Personal history of malignant neoplasm of other parts of uterus; Z87.891 Personal history of nicotine dependence; Z60.9 Problem related to social environment, unspecified
CPT/HCPCS: 99284

== ENCOUNTER 2021-01-05 13:25 | Observation (INO) ==
[2021-01-05 15:58] LABS: ALT 39 U/L (7-52); Albumin/Globulin Ratio 1.1 (1-3); Alkaline Phosphatase 149 U/L (35-149); Blood Urea Nitrogen 19 mg/dL (6-24); C Reactive Protein 189.61 mg/L (<8.01); CO2 Carbon Dioxide 30 mmol/L (22-32); Calcium 9.2 mg/dL (8.6-10.3); Chloride 98 mmol/L (101-111); Globulin 3.7 g/dL (2-4); Glucose 149 mg/dL (70-100); Sodium 135 mmol/L (135-145); Total Protein 7.7 g/dL (6.4-8.9); eGFR CKD-EPI 76.6 (>60)
[2021-01-05 15:59] LABS: AST 30 U/L (13-39); Anion Gap 7 mmol/L (2-11); Potassium 4.3 mmol/L (3.5-5.0)
[2021-01-05 16:00] LABS: Activated Partial Thrombo Time 28.2 seconds (26.0-38.0); INR 1.17 (0.86-1.15)
[2021-01-05 16:04] LABS: LDH 327 U/L (140-271)
[2021-01-05 16:25] LABS: Ferritin 95.5 ng/mL (11-307)
[2021-01-05 16:25] LABS: ABS Basophils 0.1 10^3/ul (0-0.2); ABS Monocytes 0.3 10^3/ul (0-0.8); ABS Neutrophils 11.1 10^3/ul (1.5-7.7); Eosinophil % 0.2 %; Hematocrit 42 % (35-47); Hemoglobin 13.4 g/dL (12.0-16.0); Lymphocyte % 8.3 %; Mean Corpuscular HGB Conc 32 g/dL (31-36); Mean Corpuscular Hemoglobin 28 pg (27-31); Mean Corpuscular Volume 87 fL (80-97); Mean Platelet Volume 9.4 fL (7.4-10.4); Platelet Count 205 10^3/uL (150-450); Red Blood Count 4.81 10^6 /uL (3.70-4.87); Red Cell Distribution Width 17 % (10-15); White Blood Count 12.5 10^3/uL (3.5-10.8)
[2021-01-05 16:38] LABS: Influenza A Molecular Negative (Negative); Influenza B Molecular Negative (Negative)
[2021-01-05] MEDS ORDERED: Ondansetron 4 mg VIAL 2 MG/ML 2 ml VIAL IV PRN (17:28)
[2021-01-05] MEDS ORDERED: Albuterol HFA INHALER 8 gm MDI INH PRN (17:31)
[2021-01-05] MEDS ORDERED: Dextrose 50% Syringe 50 ml 25 GM/50 ML SYRINGE IV PUSH PRN (17:33)
[2021-01-05] MEDS ORDERED: Azithromycin 500 mg/250 ml NS 500 MG/250 ML BAG IVPB ONE (17:57)
[2021-01-05 19:47] LABS: Urine Appearance Cloudy; Urine Bilirubin Negative (Negative); Urine Blood Negative (Negative); Urine Color Yellow; Urine Glucose Negative (Negative); Urine Ketones Negative (Negative); Urine Nitrite Negative (Negative); Urine Protein 2+(100 mg/dL) (Negative); Urine Specific Gravity 1.014 (1.002-1.030); Urine Urobilinogen Positive (Negative)
[2021-01-05 19:48] LABS: Troponin I 0.19 ng/mL (<0.03)
[2021-01-05 19:53] LABS: Urine Bacteria 3+ (Absent); Urine Red Blood Cell Trace(0-2/hpf) (Absent); Urine Squamous Epithelial Cell Present (Absent); Urine White Blood Cell 1+(6-10/hpf) (Absent)
[2021-01-05 20:16] LABS: Rapid COVID-19 Molecular Undetected (Undetected)
[2021-01-05] MEDS ORDERED: Insulin GLARGINE 100 un/ml 10 ml VIAL SUBCUT SCH (21:00)
[2021-01-05] MEDS: Enoxaparin 40 MG/0.4 ML SYR SUBCUT SCH (21:32)
[2021-01-05 22:05] LABS: Troponin I 0.14 ng/mL (<0.03)
[2021-01-06 01:09] LABS: Troponin I 0.12 ng/mL (<0.03)
[2021-01-06 06:02] LABS: ABS Lymphocytes 1.5 10^3/ul (1.0-4.8); ABS Monocytes 0.8 10^3/ul (0-0.8); ABS Neutrophils 8.1 10^3/ul (1.5-7.7); Eosinophil % 0.2 %; Hematocrit 40 % (35-47); Hemoglobin 12.9 g/dL (12.0-16.0); Lymphocyte % 14.3 %; Mean Corpuscular HGB Conc 33 g/dL (31-36); Mean Corpuscular Hemoglobin 29 pg (27-31); Mean Corpuscular Volume 88 fL (80-97); Mean Platelet Volume 9.6 fL (7.4-10.4); Nucleated Red Blood Cells % 0.1; Platelet Count 221 10^3/uL (150-450); Red Blood Count 4.52 10^6 /uL (3.70-4.87); Red Cell Distribution Width 17 % (10-15); White Blood Count 10.3 10^3/uL (3.5-10.8)
[2021-01-06 06:15] LABS: C Reactive Protein 161.82 mg/L (<8.01); Calcium 9.2 mg/dL (8.6-10.3); Potassium 4.3 mmol/L (3.5-5.0); eGFR CKD-EPI 66.9 (>60)
[2021-01-06] MEDS: guaiFENesin 100 mg/5 ml LIQ unit dose cup PO PRN ×2 (09:38→20:47)
[2021-01-06] MEDS: Aspirin EC 81 mg TAB.EC (enteric coated) PO SCH (09:40)
[2021-01-06] MEDS: Multivitamins/Minerals TAB PO SCH (09:40)
[2021-01-06] MEDS: Calcium/Vitamin D TAB 250/125 TAB PO SCH (09:41)
[2021-01-06] MEDS ORDERED: Furosemide 40 mg/4 ml IV VIAL IV ONE (11:39)
[2021-01-06] MEDS ORDERED: Perflutren Lipid Microsphere 3 ML VIAL ONE (16:13)
[2021-01-06] MEDS: Furosemide 40 mg/4 ml IV VIAL IV SLOW PU SCH (16:37)
[2021-01-06] MEDS: Enoxaparin 40 MG/0.4 ML SYR SUBCUT SCH (16:37)
[2021-01-06 17:15] LABS: Glucose Confirmatory 419 mg/dL (70-100)
[2021-01-06] MEDS ORDERED: Insulin GLARGINE 100 un/ml 10 ml VIAL SUBCUT ONE (17:29)
[2021-01-06] MEDS ORDERED: Insulin GLARGINE 100 un/ml 10 ml VIAL ONE (18:10)
[2021-01-06] MEDS: Insulin GLARGINE 100 un/ml 10 ml VIAL SUBCUT SCH ×2 (18:15→18:59)
[2021-01-06 20:08] LABS: Glucose Confirmatory 483 mg/dL (70-100)
[2021-01-07] MEDS: guaiFENesin 100 mg/5 ml LIQ unit dose cup PO PRN ×2 (04:33→11:22)
[2021-01-07 04:52] LABS: Hematocrit 40 % (35-47); Hemoglobin 13.3 g/dL (12.0-16.0); Mean Corpuscular HGB Conc 33 g/dL (31-36); Mean Corpuscular Hemoglobin 28 pg (27-31); Mean Corpuscular Volume 86 fL (80-97); Mean Platelet Volume 9.2 fL (7.4-10.4); Platelet Count 261 10^3/uL (150-450); Red Cell Distribution Width 17 % (10-15); White Blood Count 10.3 10^3/uL (3.5-10.8)
[2021-01-07 05:15] LABS: Calcium 9.4 mg/dL (8.6-10.3); Magnesium 2.2 mg/dL (1.9-2.7); Potassium 3.9 mmol/L (3.5-5.0); eGFR CKD-EPI 63.7 (>60)
[2021-01-07] MEDS: Calcium/Vitamin D TAB 250/125 TAB PO SCH (08:19)
[2021-01-07] MEDS: Multivitamins/Minerals TAB PO SCH (08:19)
[2021-01-07] MEDS: Furosemide 40 mg/4 ml IV VIAL IV SLOW PU SCH (08:19)
[2021-01-07] MEDS: Aspirin EC 81 mg TAB.EC (enteric coated) PO SCH (08:20)
[2021-01-07 15:40] VITALS: BP 136/54
== END 2021-01-07 15:20 | disposition home or self-care (01) ==
LOC: EDHOLD 13:25 → ED 13:25 → SUATTDRO 17:35 → MED 19:37
PROVIDERS: ADMIT Hospitalist; ATTEND Internal Medicine